=== PATIENT | male | born 1935 | race Caucasian/White ===

== ENCOUNTER 2019-05-11 13:50 | Observation (INO) | payer MEDICARE, OTHER, SELFPAY ==
[2019-05-11] VITALS (7 sets, daily range): BP systolic 120–161; BP diastolic 59–88; PULSE 67–81; RESP 15–20; TEMP 36.3–36.4; O2SAT 97–99; BMI 23.6
--- NOTE | 2019-05-11 14:04 | ED.NEUROSD ---
HPI - Neuro Symptoms/Deficit General Chief Complaint: Neuro Symptoms/Deficit Stated Complaint: slurred speach/gait Time Seen by Provider: 05/11/19 13:55 Source: patient and family Mode of arrival: ambulatory Limitations: no limitations History of Present Illness HPI Narrative: Patient is an 83-year-old male presenting with right-sided facial droop and difficulty speaking according to daughter. She states that she noticed symptoms at around 9:30 a.m. in the morning all. She still feels like his speech is a little bit slurred. She states that she had a continue sleepy asked him to repeat what he was saying and she was not able to understand him, it has improved. No history of stroke or cardiovascular disease. He has no complaints but he does have some right facial weakness. He denies any weakness or numbness in his extremities. No chest pain or heart palpitations. Time: 09:30 Timing confirmed by: family member Related Data Home Medications Medication Instructions Recorded Confirmed Statin 1 tab PO DAILY 05/11/19 05/11/19 Thyroid 1 tab PO DAILY 05/11/19 05/11/19 Wellbutrin 1 tab PO BID 05/11/19 05/11/19 cranberry 1 cap PO DAILY 05/11/19 05/11/19 ibuprofen 1 dose PO PRN PRN 05/11/19 05/11/19 Allergies Allergy/AdvReac Type Severity Reaction Status Date / Time No Known Drug Allergies Allergy Verified 05/11/19 17:38 Review of Systems Review of Systems GENERAL: Denies chills, fatigue, malaise, fever, sweats, travel HEENT: Denies sinus pain, ear pain, sore throat, difficulty swallowing, neck pain RESPIRATORY: Denies dyspnea, cough, wheezing, hemoptysis, sputum. CARDIOVASCULAR: Denies chest pain, palpitations, orthopnea, edema GASTROINTESTINAL: Denies nausea, vomiting, abdominal pain, diarrhea, constipation, melena. : Denies dysuria, frequency, incontinence, hematuria, urinary retention, flank pain. MUSCULOSKELETAL: Denies weakness, joint pain, or bony pain SKIN: No rash, no erythema, no pruritus NEUROLOGIC: See HPI home PSYCHIATRIC: No concerning psychosocial issues. 12 point review of systems is negative except for those stated above and HPI [facility] Medical History (Updated 05/11/19 @ 17:57 by Akash Godoy DO) Patient denies significant medical history (Acute) HTN (hypertension) (Chronic) Hypothyroidism (Chronic) Surgical History (Updated 05/11/19 @ 17:57 by Akash Godoy DO) H/O shoulder surgery (Resolved) Social History household members: children Smoking Status: Former smoker alcohol intake: never Social History household members: children Smoking Status: Former smoker alcohol intake: never Exam Initial Vital Signs Initial Vital Signs: Vital Signs Temperature 97.5 F L 05/11/19 13:58 Pulse Rate 81 05/11/19 13:58 Respiratory Rate 16 05/11/19 13:58 Blood Pressure 161/88 H 05/11/19 13:58 Pulse Oximetry 99 05/11/19 13:58 GENERAL: The male and in no acute distress. HEENT: Head atraumatic,EOMI, pupils reactive, slight right-sided facial droop upon mild CARDIOVASCULAR: Regular rate and rhythm without murmurs, rubs or gallops. RESPIRATORY: Breath sounds equal bilaterally, no wheezes rales or rhonchi. ABDOMEN: Soft, nontender. Normoactive bowel sounds all 4 quadrants. No guarding or rebound. EXTREMITIES: Normal range of motion, no clubbing or edema. Neurovascularly intact NEUROLOGICAL: Alert and oriented x4.Normal gait and speech. Cranial nerves II through XII grossly intact. Test Desk Trouble Locator strength equal bilaterally good [id number], slight right facial droop upon smiling only. No aphasia or dysarthria SKIN: Warm, dry, no laceration, no petechiae, no rashes or lesions. Scores ABCD2 Age >= 60 years: yes Initial BP. Either SBP >= 140 or DBP >= 90.: yes Clinical features of the TIA: speech disturbance without weakness Duration of symptoms: >= 60 minutes History of diabetes: no ABCD2 Score: 5 NIH Stroke Scale Level of Conciousness: Alert, keenly responsive Ask month/age: Answers both questions correctly. Open/close eyes, close hand: Performs both tasks correctly Best gaze horizontal: Normal Visual mora: No visual loss Facial palsy: Minor paralysis, flattened nasolabial fold, asymmetry on smiling Left arm drift: No drift for full 10 sec Right arm drift: No drift for full 10 sec Left leg drift: No drift for full 10 sec Right leg drift: No drift for full 10 sec Limb ataxia: Absent Sensory on face/arms/legs: Normal, no sensory loss Best language: No aphasia, normal Dysarthria: Normal Extinction or inattention: No abnormality Total NIH Stroke scale score: 1 Course Orders Ordered: ED Orders 05/11/19 13:55 Complete Blood Count AUTO DIFF Stat Comprehensive Metabolic Panel Stat Partial Thromboplastin Time Stat Prothrombin Time INR Stat Troponin I Stat 05/11/19 14:03 EKG-12 Lead Stat 05/11/19 14:04 CT head/brain wo con Stat Urine Drug Screen, Rapid Stat 05/11/19 17:45 Consult to Physical Therapy Evaluate & Treat 05/11/19 17:47 Consult to Discharge Planning Routine Consult to Occupational Therapy Evaluate & Treat 05/12/19 05:00 Basic Metabolic Panel DAILY Iron Routine Lipid Panel Routine Magnesium DAILY TSH w/ Reflex to FT4 Routine Total Iron Binding Capacity Routine 05/13/19 05:00 Basic Metabolic Panel DAILY Magnesium DAILY 05/14/19 05:00 Basic Metabolic Panel DAILY Magnesium DAILY Aspirin (Aspirin Ec) 81 mg PO DAILY MELONIE Sodium Chloride (Normal Saline 0.9%) 1,000 mls @ 150 mls/hr IV CONT MELONIE Last Admin: 05/11/19 16:03 Dose: 150 mls/hr Simvastatin (Zocor) 40 mg PO BEDTIME MELONIE Discontinued Medications Aspirin (Aspirin Chew) 324 mg PO NOW ONE Stop: 05/11/19 15:50 Last Admin: 05/11/19 16:03 Dose: 324 mg Vital Signs - 8 hr 05/11/19 13:58 05/11/19 14:03 05/11/19 15:00 Temperature 97.5 F L Pulse Rate 81 74 72 Respiratory Rate 16 16 16 Blood Pressure 161/88 H Blood Pressure [Right Arm] 144/68 H 120/59 L Pulse Oximetry 99 98 98 05/11/19 15:30 05/11/19 16:33 05/11/19 17:10 Temperature 97.3 F L Pulse Rate 74 69 67 Respiratory Rate 18 15 20 Blood Pressure 136/73 127/85 Blood Pressure [Right Arm] 134/60 Pulse Oximetry 97 99 98 MDM - Neuro Symptoms/Deficit Lab Data Attestation: I reviewed the patient's lab results. Result diagrams: 05/11/19 13:55 05/11/19 13:55 Lab Results 05/11/19 05/11/19 05/11/19 Range/Units 13:55 13:55 13:55 WBC 9.5 (4.5-11.0) X10^3/uL RBC 3.96 L (4.5-5.9) X10^6/uL Hgb 12.3 L (13.5-17.5) g/dL Hct 37.2 L (41-53) % MCV 93.8 (80-100) fL MCH 31.1 (26-34) PG MCHC 33.1 (30-36) % RDW 13.6 (11.6-14.8) % Plt Count 171 (150-400) X10^3/uL Neut % (Auto) 63.1 (50-75) % Lymph % (Auto) 17.4 L (25-40) % [place] % (Auto) 9.8 (3-14) % Eos % (Auto) 8.9 H (2-4) % Baso % (Auto) 0.8 (0-2) % Neut # (Auto) 6000 (8217-6459) /uL Lymph # (Auto) 1600 (7224-3246) /uL [place] # (Auto) 900 (0-900) /uL Eos # (Auto) 800 H (0-450) /uL Baso # (Auto) 100 (0-100) /uL PT 12.1 (10.1-12.7) SECONDS INR 1.1 (0.9-1.3) APTT 31 (26.4-36.2) SECONDS Sodium 142 (137-145) mmol/L Potassium 4.6 (3.4-5.1) mmol/L Chloride 110 H (98-107) mmol/L Carbon Dioxide 22 (22-32) mmol/L BUN 51 H (9-20) mg/dL Creatinine 1.80 H (0.66-1.25) mg/dL Estimated GFR 36.2 L (>60) mL/min BUN/Creatinine Ratio 28.3 H (6-22) Glucose 91 (80-110) mg/dL Calcium 9.3 (8.4-10.2) mg/dL Total Bilirubin 0.5 (0.2-1.3) mg/dL AST 24 (17-59) IU/L ALT 19 L (21-72) IU/L Alkaline Phosphatase 87 (38-126) U/L Troponin I < 0.012 (0.01-0.034) ng/mL Total Protein 7.4 (6.3-8.2) g/dL Albumin 4.1 (3.5-5.0) g/dL Globulin 3.3 (1.7-4.1) g/dL Albumin/Globulin Ratio 1.2 (1.0-2.8) Point of Care Testing Glucose POC 89 Urine Dip Bedside Urine Glucose Negative Bedside Urine Bilirubin - Negative Bedside Urine Ketone - Negative Bedside Urine Occult Blood - Negative Bedside Urine Protein +/- 15 Bedside Urine Urobilinogen - Negative Bedside Urine Nitrite - Negative Bedside Urine Leukocytes - Negative Esterase Imaging Data CT scan - head: Radiologist's impression: PROCEDURE: CT HEAD/BRAIN WO CON INDICATIONS: RIGHT FACIAL DROOP NO TPA TECHNIQUE: Noncontrast 4.5 mm thick angled axial sections acquired from the foramen magnum to the vertex, with coronal and sagittal reformats. For radiation dose reduction, the following was used: automated exposure control, adjustment of mA and/or kV according to patient size. COMPARISON: None. FINDINGS: Image quality: Excellent. CSF spaces: Basal cisterns are patent. No extra-axial fluid collections. The ventricles are symmetric in size and shape. Brain: No intracranial bleeds or masses. There is cerebral volume loss for age, with resultant ventricular and sulcal prominence. There are periventricular and deep white matter chronic small vessel ischemic changes. There is intracranial internal carotid artery atherosclerosis. Skull and face: Calvarium and visualized facial bones appear intact, without suspicious lesions. Sinuses: Visualized sinuses and mastoids are clear. IMPRESSION: Normal for age, source of current symptoms is not seen. Dictated by: Forrest Henson M.D. on 05/11/2019 at 14:24 ECG Data Attestation: I personally reviewed and interpreted this ECG as follows: Prior ECG tracings: not available for review Interpretation: Normal sinus rhythm rate 73 year interval 200 QRS [address] changes no T-wave inversions no prior to compare [facility] Narrative Medical decision making narrative: Daughter states that his speech is overall improved he still has some mild right-sided facial drooping upon smiling. He is ambulatory to the restroom without difficulty. However with significant difficulty speaking and slurring of speech there is concern for TIA. Patient has a high ABCD2 score. He is currently between PCPs and no follow-up. Dr. Godoy, hospitalist has been updated patient's symptoms test results agrees with observation. Discharge Plan Departure Patient Disposition: Admitted as Observation Clinical Impression: Transient cerebral ischemia Qualifiers: Transient cerebral ischemia type: other Qualified Code(s): G45.8 - Other transient cerebral ischemic attacks and related syndromes Discharge Date/Time: 05/11/19 17:32 Interventions: ED Discharge Assessment Last Done: 05/11/19 16:33 Admit Date/Time: 05/11/19 15:50 Admit Provider: Akash Godoy
[2019-05-11 14:11] LABS: Add Manual Diff / Slide Review NO; Basophils Absolute Auto 100 /uL (0-100); Basophils Percent Auto 0.8 % (0-2); Eosinophils Absolute Auto 800 /uL (0-450); Eosinophils Percent Auto 8.9 % (2-4); Hematocrit 37.2 % (41-53); Hemoglobin 12.3 g/dL (13.5-17.5); Lymphocytes Absolute Auto 1600 /uL (1100-4500); Lymphocytes Percent Auto 17.4 % (25-40); Mean Corpuscular HGB Conc 33.1 % (30-36); Mean Corpuscular Hemoglobin 31.1 PG (26-34); Mean Corpuscular Volume 93.8 fL (80-100); Monocytes Absolute Auto 900 /uL (0-900); Monocytes Percent Auto 9.8 % (3-14); Neutrophils Absolute Auto 6000 /uL (1500-7000); Neutrophils Percent Auto 63.1 % (50-75); Platelet Count 171 X10^3/uL (150-400); Red Blood Cell Count 3.96 X10^6/uL (4.5-5.9); Red Cell Distribution Width 13.6 % (11.6-14.8); White Blood Cell Count 9.5 X10^3/uL (4.5-11.0)
[2019-05-11 14:13] LABS: INR 1.1 (0.9-1.3); Prothrombin Time 12.1 SECONDS (10.1-12.7)
[2019-05-11 14:15] LABS: PTT Partial Thromboplastin Tim 31 SECONDS (26.4-36.2)
[2019-05-11 14:17] LABS: Alanine Aminotransferase 19 IU/L (21-72); Albumin 4.1 g/dL (3.5-5.0); Albumin Globulin Ratio 1.2 (1.0-2.8); Alkaline Phosphatase 87 U/L (38-126); Aspartate Aminotransferase 24 IU/L (17-59); BUN Creatinine Ratio 28.3 (6-22); Bilirubin Total 0.5 mg/dL (0.2-1.3); Blood Urea Nitrogen 51 mg/dL (9-20); Calcium 9.3 mg/dL (8.4-10.2); Carbon Dioxide 22 mmol/L (22-32); Chloride 110 mmol/L (98-107); Estimated Glomerular Filt Rate 36.2 mL/min (>60); Globulin 3.3 g/dL (1.7-4.1); Glucose 91 mg/dL (80-110); HEMOLYSIS < 15 (0-50); Potassium 4.6 mmol/L (3.4-5.1); Sodium 142 mmol/L (137-145); Total Protein 7.4 g/dL (6.3-8.2)
[2019-05-11 14:29] LABS: Troponin I < 0.012 ng/mL (0.01-0.034)
--- NOTE | 2019-05-11 14:45 | ED_ITS ---
HPI - Neuro Symptoms/Deficit General Chief Complaint: Neuro Symptoms/Deficit Stated Complaint: slurred speach/gait Time Seen by Provider: 05/11/19 13:55 Source: patient and family Mode of arrival: ambulatory Limitations: no limitations History of Present Illness HPI Narrative: Patient is an 83-year-old male presenting with right-sided facial droop and difficulty speaking according to daughter. She states that she noticed symptoms at around 9:30 a.m. in the morning all. She still feels like his speech is a little bit slurred. She states that she had a continue sleepy asked him to repeat what he was saying and she was not able to understand him, it has improved. No history of stroke or cardiovascular disease. He has no complaints but he does have some right facial weakness. He denies any weakness or numbness in his extremities. No chest pain or heart palpitations. Time: 09:30 Timing confirmed by: family member Related Data Home Medications Medication Instructions Recorded Confirmed Statin 1 tab PO DAILY 05/11/19 05/11/19 Thyroid 1 tab PO DAILY 05/11/19 05/11/19 Wellbutrin 1 tab PO BID 05/11/19 05/11/19 cranberry 1 cap PO DAILY 05/11/19 05/11/19 ibuprofen 1 dose PO PRN PRN 05/11/19 05/11/19 Allergies Allergy/AdvReac Type Severity Reaction Status Date / Time No Known Drug Allergies Allergy Verified 05/11/19 17:38 Review of Systems Review of Systems GENERAL: Denies chills, fatigue, malaise, fever, sweats, travel HEENT: Denies sinus pain, ear pain, sore throat, difficulty swallowing, neck pain RESPIRATORY: Denies dyspnea, cough, wheezing, hemoptysis, sputum. CARDIOVASCULAR: Denies chest pain, palpitations, orthopnea, edema GASTROINTESTINAL: Denies nausea, vomiting, abdominal pain, diarrhea, constipation, melena. : Denies dysuria, frequency, incontinence, hematuria, urinary retention, flank pain. MUSCULOSKELETAL: Denies weakness, joint pain, or bony pain SKIN: No rash, no erythema, no pruritus NEUROLOGIC: See HPI home PSYCHIATRIC: No concerning psychosocial issues. 12 point review of systems is negative except for those stated above and HPI [facility] Medical History (Updated 05/11/19 @ 17:57 by Akash Godoy DO) Patient denies significant medical history (Acute) HTN (hypertension) (Chronic) Hypothyroidism (Chronic) Surgical History (Updated 05/11/19 @ 17:57 by Akash Godoy DO) H/O shoulder surgery (Resolved) Social History household members: children Smoking Status: Former smoker alcohol intake: never Social History household members: children Smoking Status: Former smoker alcohol intake: never Exam Initial Vital Signs Initial Vital Signs: Vital Signs Temperature 97.5 F L 05/11/19 13:58 Pulse Rate 81 05/11/19 13:58 Respiratory Rate 16 05/11/19 13:58 Blood Pressure 161/88 H 05/11/19 13:58 Pulse Oximetry 99 05/11/19 13:58 GENERAL: The male and in no acute distress. HEENT: Head atraumatic,EOMI, pupils reactive, slight right-sided facial droop upon mild CARDIOVASCULAR: Regular rate and rhythm without murmurs, rubs or gallops. RESPIRATORY: Breath sounds equal bilaterally, no wheezes rales or rhonchi. ABDOMEN: Soft, nontender. Normoactive bowel sounds all 4 quadrants. No guar ding or rebound. EXTREMITIES: Normal range of motion, no clubbing or edema. Neurovascularly intact NEUROLOGICAL: Alert and oriented x4.Normal gait and speech. Cranial nerves II through XII grossly intact. Junior Brand Manager strength equal bilaterally good [id number], slight right facial droop upon smiling only. No aphasia or dysarthria SKIN: Warm, dry, no laceration, no petechiae, no rashes or lesions. Scores ABCD2 Age >= 60 years: yes Initial BP. Either SBP >= 140 or DBP >= 90.: yes Clinical features of the TIA: speech disturbance without weakness Duration of symptoms: >= 60 minutes History of diabetes: no ABCD2 Score: 5 NIH Stroke Scale Level of Conciousness: Alert, keenly responsive Ask month/age: Answers both questions correctly. Open/close eyes, close hand: Performs both tasks correctly Best gaze horizontal: Normal Visual mora: No visual loss Facial palsy: Minor paralysis, flattened nasolabial fold, asymmetry on smiling Left arm drift: No drift for full 10 sec Right arm drift: No drift for full 10 sec Left leg drift: No drift for full 10 sec Right leg drift: No drift for full 10 sec Limb ataxia: Absent Sensory on face/arms/legs: Normal, no sensory loss Best language: No aphasia, normal Dysarthria: Normal Extinction or inattention: No abnormality Total NIH Stroke scale score: 1 Course Orders Ordered: ED Orders 05/11/19 13:55 Complete Blood Count AUTO DIFF Stat Comprehensive Metabolic Panel Stat Partial Thromboplastin Time Stat Prothrombin Time INR Stat Troponin I Stat 05/11/19 14:03 EKG-12 Lead Stat 05/11/19 14:04 CT head/brain wo con Stat Urine Drug Screen, Rapid Stat 05/11/19 17:45 Consult to Physical Therapy Evaluate & Treat 05/11/19 17:47 Consult to Discharge Planning Routine Consult to Occupational Therapy Evaluate & Treat 05/12/19 05:00 Basic Metabolic Panel DAILY Iron Routine Lipid Panel Routine Magnesium DAILY TSH w/ Reflex to FT4 Routine Total Iron Binding Capacity Routine 05/13/19 05:00 Basic Metabolic Panel DAILY Magnesium DAILY 05/14/19 05:00 Basic Metabolic Panel DAILY Magnesium DAILY Aspirin (Aspirin Ec) 81 mg PO DAILY MELONIE Sodium Chloride (Normal Saline 0.9%) 1,000 mls @ 150 mls/hr IV CONT MELONIE Last Admin: 05/11/19 16:03 Dose: 150 mls/hr Simvastatin (Zocor) 40 mg PO BEDTIME MELONIE Discontinued Medications Aspirin (Aspirin Chew) 324 mg PO NOW ONE Stop: 05/11/19 15:50 Last Admin: 05/11/19 16:03 Dose: 324 mg Vital Signs - 8 hr 05/11/19 13:58 05/11/19 14:03 05/11/19 15:00 Temperature 97.5 F L Pulse Rate 81 74 72 Respiratory Rate 16 16 16 Blood Pressure 161/88 H Blood Pressure [Right Arm] 144/68 H 120/59 L Pulse Oximetry 99 98 98 05/11/19 15:30 05/11/19 16:33 05/11/19 17:10 Temperature 97.3 F L Pulse Rate 74 69 67 Respiratory Rate 18 15 20 Blood Pressure 136/73 127/85 Blood Pressure [Right Arm] 134/60 Pulse Oximetry 97 99 98 MDM - Neuro Symptoms/Deficit Lab Data Attestation: I reviewed the patient's lab results. Result diagrams: 05/11/19 13:55 05/11/19 13:55 Lab Results 05/11/19 05/11/19 05/11/19 Range/Units 13:55 13:55 13:55 WBC 9.5 (4.5-11.0) X10^3/uL RBC 3.96 L (4.5-5.9) X10^6/uL Hgb 12.3 L (13.5-17.5) g/dL Hct 37.2 L (41-53) % MCV 93.8 (80-100) fL MCH 31.1 (26-34) PG MCHC 33.1 (30-36) % RDW 13.6 (11.6-14.8) % Plt Count 171 (150-400) X10^3/uL Neut % (Auto) 63.1 (50-75) % Lymph % (Auto) 17.4 L (25-40) % [place] % (Auto) 9.8 (3-14) % Eos % (Auto) 8.9 H (2-4) % Baso % (Auto) 0.8 (0-2) % Neut # (Auto) 6000 (1240-5151) /uL Lymph # (Auto) 1600 (8517-1006) /uL [place] # (Auto) 900 (0-900) /uL Eos # (Auto) 800 H (0-450) /uL Baso # (Auto) 100 (0-100) /uL PT 12.1 (10.1-12.7) SECONDS INR 1.1 (0.9-1.3) APTT 31 (26.4-36.2) SECONDS Sodium 142 (137-145) mmol/L Potassium 4.6 (3.4-5.1) mmol/L Chloride 110 H (98-107) mmol/L Carbon Dioxide 22 (22-32) mmol/L BUN 51 H (9-20) mg/dL Creatinine 1.80 H (0.66-1.25) mg/dL Estimated GFR 36.2 L (>60) mL/min BUN/Creatinine Ratio 28.3 H (6-22) Glucose 91 (80-110) mg/dL Calcium 9.3 (8.4-10.2) mg/dL Total Bilirubin 0.5 (0.2-1.3) mg/dL AST 24 (17-59) IU/L ALT 19 L (21-72) IU/L Alkaline Phosphatase 87 (38-126) U/L Troponin I < 0.012 (0.01-0.034) ng/mL Total Protein 7.4 (6.3-8.2) g/dL Albumin 4.1 (3.5-5.0) g/dL Globulin 3.3 (1.7-4.1) g/dL Albumin/Globulin Ratio 1.2 (1.0-2.8) Point of Care Testing Glucose POC 89 Urine Dip Bedside Urine Glucose Negative Bedside Urine Bilirubin - Negative Bedside Urine Ketone - Negative Bedside Urine Occult Blood - Negative Bedside Urine Protein +/- 15 Bedside Urine Urobilinogen - Negative Bedside Urine Nitrite - Negative Bedside Urine Leukocytes - Negative Esterase Imaging Data CT scan - head: Radiologist's impression: PROCEDURE: CT HEAD/BRAIN WO CON INDICATIONS: RIGHT FACIAL DROOP NO TPA TECHNIQUE: Noncontrast 4.5 mm thick angled axial sections acquired from the foramen magnum to the vertex, with coronal and sagittal reformats. For radiation dose reduction, the following was used: automated exposure control, adjustment of mA and/or kV according to patient size. COMPARISON: None. FINDINGS: Image quality: Excellent. CSF spaces: Basal cisterns are patent. No extra-axial fluid collections. The ventricles are symmetric in size and shape. Brain: No intracranial bleeds or masses. There is cerebral volume loss for age, with resultant ventricular and sulcal prominence. There are periventricular and deep white matter chronic small vessel ischemic changes. There is intracranial internal carotid artery atherosclerosis. Skull and face: Calvarium and visualized facial bones appear intact, without suspicious lesions. Sinuses: Visualized sinuses and mastoids are clear. IMPRESSION: Normal for age, source of current symptoms is not seen. Dictated by: Forrest Henson M.D. on 05/11/2019 at 14:24 ECG Data Attestation: I personally reviewed and interpreted this ECG as follows: Prior ECG tracings: not available for review Interpretation: Normal sinus rhythm rate 73 year interval 200 QRS [address] changes no T-wave inversions no prior to compare [facility] Narrative Medical decision making narrative: Daughter states that his speech is overall i mproved he still has some mild right-sided facial drooping upon smiling. He is ambulatory to the restroom without difficulty. However with significant difficulty speaking and slurring of speech there is concern for TIA. Patient has a high ABCD2 score. He is currently between PCPs and no follow-up. Dr. Godoy, hospitalist has been updated patient's symptoms test results agrees with observation. Discharge Plan Departure Patient Disposition: Admitted as Observation Clinical Impression: Transient cerebral ischemia Qualifiers: Transient cerebral ischemia type: other Qualified Code(s): G45.8 - Other transient cerebral ischemic attacks and related syndromes Discharge Date/Time: 05/11/19 17:32 Interventions: ED Discharge Assessment Last Done: 05/11/19 16:33 Admit Date/Time: 05/11/19 15:50 Admit Provider: Akash Godoy
[2019-05-11] MEDS: SODIUM CHLORIDE 0.9% 1,000 ML 150 ML IV (16:03)
[2019-05-11] MEDS: ASPIRIN 81 MG TAB 324 MG PO (16:03)
--- NOTE | 2019-05-11 17:49 | PM.HP.1 ---
History of Present Illness Date Patient Seen: 05/11/19 Time Patient Seen: 17:30 Chief complaint: slurred speach/gait Narrative: This is an 83-year-old male a past medical history of hypothyroidism and hyperlipidemia who recently moved from [place] 2 weeks ago who presented with slurred speech as noticed by family members. His daughter noticed this around 930 this morning, specifically noting inability to comprehend the patient and a facial droop. She also states he was having some difficulty walking but had no discrete weakness that she could tell. She reports the symptoms have now resolved and the patient is speaking well and has no residual facial droop at this time. The patient himself could not recall what had occurred and deferred history to the daughter. However he did deny prior fever, chills, arm or leg weakness, numbness, chest pain, shortness of breath, lower extremity edema. He further denied headaches or vision changes currently. Patient states around 2 years ago he had periods imbalance which were evaluated and no cause was found. Other than this he states he is in good health. He last saw his primary physician a few years ago. Patient History Medical History (Updated 05/11/19 @ 17:57 by Akash Godoy DO) Patient denies significant medical history (Acute) HTN (hypertension) (Chronic) Hypothyroidism (Chronic) Surgical History (Updated 05/11/19 @ 17:57 by Akash Godoy DO) H/O shoulder surgery (Resolved) Social History household members: children Smoking Status: Former smoker alcohol intake: never Family & Social History Social History: household members children Prior Living Arrangements House Safety & Behavioral: Feels Safe in Current Yes Environment Been Physically Hurt or No Threatened By a Person Suicidal Ideation Description None Suicide Plan Description No Plan Tobacco & Substance use: Smoking Status Former smoker, quit in 1968 but has >30 pack year history alcohol intake never alcohol intake frequency 0-2 drinks per day Substance Use Type does not use Meds Home Medications Medication Instructions Recorded Confirmed Type Statin 1 tab PO DAILY 05/11/19 05/11/19 History Thyroid 1 tab PO DAILY 05/11/19 05/11/19 History Wellbutrin 1 tab PO BID 05/11/19 05/11/19 History cranberry 1 cap PO DAILY 05/11/19 05/11/19 History ibuprofen 1 dose PO PRN PRN 05/11/19 05/11/19 History Allergies Allergy/AdvReac Type Severity Reaction Status Date / Time No Known Drug Allergies Allergy Verified 05/11/19 17:38 Review of Systems Review of Systems All other systems reviewed with the patient and are negative unless otherwise stated. Exam Vital Signs (past 8 hours): - 05/11/19 13:58 05/11/19 14:03 05/11/19 15:00 Temperature 97.5 F L Pulse Rate 81 74 72 Respiratory Rate 16 16 16 Blood Pressure 161/88 H Blood Pressure [Right Arm] 144/68 H 120/59 L Pulse Oximetry 99 98 98 05/11/19 15:30 05/11/19 16:33 05/11/19 17:10 Temperature 97.3 F L Pulse Rate 74 69 67 Respiratory Rate 18 15 20 Blood Pressure 136/73 127/85 Blood Pressure [Right Arm] 134/60 Pulse Oximetry 97 99 98 Oxygen Delivery Method Room Air Narrative Exam Narrative: GENERAL APPEARANCE: Well developed, well nourished, in no acute distress. SKIN: Inspection of the skin reveals no rashes, ulcerations or petechiae. Minor skin bruising in upper and lower extremities bilaterally. HEENT: The sclerae were anicteric and conjunctivae were pink and moist. Extraocular movements were intact and pupils were equal, round, and reactive to light with normal accommodation. External inspection of the ears and nose showed no scars, lesions, or masses. Lips, teeth, and gums showed normal mucosa. The oral mucosa, hard and soft palate, tongue and posterior pharynx were normal. NECK: Supple and symmetric. There was no thyroid enlargement, and no tenderness, or masses were felt. CHEST: Normal AP diameter and normal contour without any kyphoscoliosis. LUNGS: Auscultation of the lungs revealed no wheezes, rhonchi, or rales. CARDIOVASCULAR: There was a regular rate and rhythm without any murmurs, gallops, rubs. The carotid pulses were normal and 2+ bilaterally without bruits. Peripheral pulses were 2+ and symmetric. ABDOMEN: Soft and nontender with normal bowel sounds. No ascites was noted. MUSCULOSKELETAL: Gait was normal. There was no tenderness or effusions noted. Muscle strength and tone were normal. EXTREMITIES: No cyanosis, clubbing or edema. NEUROLOGIC: Alert and oriented x 3. Normal affect. Gait was normal. Normal deep tendon reflexes with no pathological reflexes. Sensation to touch was normal. Mild R facial droop only present with active smile. Strenght +5/5 and equal bilaterally. Objective Labs Result Diagrams: 05/11/19 13:55 05/11/19 13:55 Labs: Laboratory Results - last 24 hr 05/11/19 05/11/19 05/11/19 13:55 13:55 13:55 WBC 9.5 RBC 3.96 L Hgb 12.3 L Hct 37.2 L MCV 93.8 MCH 31.1 MCHC 33.1 RDW 13.6 Plt Count 171 Neut % (Auto) 63.1 Lymph % (Auto) 17.4 L [place] % (Auto) 9.8 Eos % (Auto) 8.9 H Baso % (Auto) 0.8 Neut # (Auto) 6000 Lymph # (Auto) 1600 [place] # (Auto) 900 Eos # (Auto) 800 H Baso # (Auto) 100 PT 12.1 INR 1.1 APTT 31 Sodium 142 Potassium 4.6 Chloride 110 H Carbon Dioxide 22 BUN 51 H Creatinine 1.80 H Estimated GFR 36.2 L BUN/Creatinine Ratio 28.3 H Glucose 91 Calcium 9.3 Total Bilirubin 0.5 AST 24 ALT 19 L Alkaline Phosphatase 87 Troponin I < 0.012 Total Protein 7.4 Albumin 4.1 Globulin 3.3 Albumin/Globulin Ratio 1.2 Assessment & Plan Assessment & Plan narrative: This is an 83-year-old male a past medical history of hypothyroidism and hyperlipidemia who recently moved from [place] 2 weeks ago who presented with slurred speech as noticed by family members, with symptoms now most likely resolved admitted under observation status for possible TIA vs ischemic stroke. 1. R facial droop - acute onset at 0930 this morning, outside of TPA window and with stroke scale of 1 thrombolytics were not indicated. He has a history of hypertension and tobacco use in the remote past which are his risk factors. He clinically is improving with market improvement in facial droop per family, however this is not fully resolved at this time. This is on likely embolic in nature as he denies recent palpitations or other cardiac symptomatology. Unlikely hypothyroidism contributing but unknown dosing. He was given asa in the ED. CT head was negative for hemorrhage. - Check TSH, A1c, and lipid panel for risk stratification - obtain TTE for evaluation of possible embolic origin. - Will work to obtain his medication list for accurate dosing of levothyroxine and simvastatin, although will start simvastatin 40 mg tonight and asa 81 mg daily - Inpatient or outpatient carotid evaluation. - PT/OT evaluation - continue telemetry monitoring for possible arrythmia. 2. Elevated Creatinine - unclear baseline, suspect some aspect of CKD however patient with elevated BUN and anemia as noted below. 3. Normocytic anemia, unclear chronicity - likely chronic, normal MCV. - obtain iron / tibc as suspect anemia of chronic inflammation - will need outpatient workup with new PMD, for which patient wishes to establish care [facility]. 4. HLD, chronic - continue simvastatin as above 5. Hypothyroidism, chronic - unclear status. Will obtain TSH and obtain medication records for accurate dosing of levothyroxine. Time Spent With Patient Time with patient: Greater than 35 minutes Quality VTE Deep Vein Thrombosis/Pulmonary Embolism Present on Admission: No
[2019-05-11] MEDS: SIMVASTATIN 40 MG TABLET PO (20:17)
--- NOTE | 2019-05-11 21:49 | PC.NURSE ---
Evening Shift Note- Patient arrived to room via stretcher from ER ar 1550. patient walked with steady gait from stretcher to bed. Admission questions completed, home medications reviewed, and physical assessment done. Patient alert and oriented and able to make needs known to staff. Patient pleasent, calm, and cooperative with care. NIH stroke scale done with score of 1 at this time. 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 No complaints of pain or discomfort. No complaints of N/V. Oriented patient to bed and bed controls, room, bathroom, lights, phone, menu, and call rizvi/tv remote. safety measures in place. call rizvi and phone within reach. will continue to monitor.
[2019-05-12 00:10] VITALS: BP 141/72; PULSE 69; RESP 16; TEMP 36.6; O2SAT 97
--- NOTE | 2019-05-12 00:57 | PC.NURSE ---
Patient is alert and oriented. Breath sounds CTA with RA sat of 97%. HRR. Telemetry reading reported as SR w/1st degree AVB. Denies nausea. BT present; abdomen is soft. Denies dysuria, frequency or urgency. Able to turn self in bed and receives SBA when out of bed for safety; denies weakness or unsteadiness. NIH score 1 for slight right facial droop. Denies pain. CBG 76 so provided with snack. Fall risk score is moderate; bed alarm is activated.
[2019-05-12 06:13] VITALS: BP 144/82; PULSE 70; RESP 14; TEMP 36.8; O2SAT 94
[2019-05-12 06:14] LABS: Iron 76 ug/dL (49-181)
[2019-05-12 06:15] LABS: Blood Urea Nitrogen 39 mg/dL (9-20); Calcium 8.9 mg/dL (8.4-10.2); Carbon Dioxide 22 mmol/L (22-32); Chloride 112 mmol/L (98-107); Cholesterol 161 mg/dL (140-199); Estimated Glomerular Filt Rate 44.7 mL/min (>60); Glucose 99 mg/dL (80-110); HDL Cholesterol 31 mg/dL (40-60); HEMOLYSIS < 15 (0-50); LDL Cholesterol Calculated 115 mg/dL (<100); Potassium 4.1 mmol/L (3.4-5.1); Sodium 139 mmol/L (137-145); Triglycerides 76 mg/dL (35-150)
[2019-05-12 06:32] LABS: Percent Iron Saturation 33 % (20-50); Total Iron Binding Capacity 233 ug/dL (261-462)
[2019-05-12 06:45] LABS: TSH w/ Reflex to FT4 4.19 uIU/mL (0.47-4.68)
--- NOTE | 2019-05-12 07:00 | DI.ECHO.S_ITS ---
[facility]---------+ [facility] +---------+ : : [address] : [place] : : : : [id number] : : : : Phone: [phone]+ Echocardiogram Report + + :Name: GUERDA SALEH Study Date: 05/12/2019 Height: 64 in : :[facility] Exam Location: IS Weight: 137 lb : : Gender: Male BSA: 1.7 m2 : :: 1935 Age: 83 yrs BP: 144/82 mmHg: :Reason For Study: TIA : : Performed By: Brannon Jones : :Referring: TUSHAR GRULLON : + + Interpretation Summary Normal sinus rhythm. Normal LV size, wall thickness, wall motion and LV systolic function. EF is 55-60%. Normal chamber sizes. Aortic sclerosis without stenosis. otherwise no significant vlavular abnormalities. No prior study available for comparison. Procedure: A two-dimensional transthoracic echocardiogram with color flow and Doppler was performed. The study quality was technically adequate. The suprasternal notch views were difficult to obtain and are suboptimal in quality. There is no prior echocardiogram noted for this patient. The patient was in normal sinus rhythm during the exam. Left Ventricle: The left ventricle is normal in size. There is normal left ventricular wall thickness. The ejection fraction is estimated to be 55-60%. There are no focal wall motion abnormalities. Diastolic parameters suggest probable normal left ventricular diastolic function and normal filling pressures. Right Ventricle: The right ventricle is normal in size and function. Atria: Both atria are normal in size. The interatrial septum is intact with no evidence for an atrial septal defect. Mitral Valve: The mitral valve is normal in structure and function. The mitral valve leaflets are slightly calcified. There is trace mitral regurgitation. Aortic Valve: The aortic valve is trileaflet. The aortic valve is mildly calcified. There is mildly reduced leaflet mobility. The peak aortic velocity is 1.64 m/sec. The aortic valve mean gradient is 6.7 mmHg. The calculated aortic valve area is 1.7 cm2. The aortic valve area is 1.6 centimeters squared by planimetry. There is mild aortic stenosis. No aortic regurgitation is present. Tricuspid Valve: The tricuspid valve is normal in structure and function. There is trace tricuspid regurgitation. The right ventricular systolic pressure is estimated to be at least 25 mmHg based on an estimated right atrial pressure of 3 mm Hg. Pulmonic Valve: The pulmonic valve is normal in structure and function. There is trace pulmonic regurgitation. Great Vessels: The aortic root is normal size. The dimensions of the ascending aorta are normal. The pulmonary artery is normal size. The IVC is of normal diameter and collapses greater than 50% with a sniff. This suggests a low right atrial pressure of 3 mm Hg. Pericardium/ Pleura There is no pericardial effusion. There is no pleural effusion. MMode/2D Measurements & Calculations LVIDd: 3.3 cm LVOT diam: 2.2 cm LVIDs: 2.1 cm Ao root diam: 3.4 cm FS: 36.7 % Aortic Jxn: 2.2 cm EPSS: 0.71 cm asc Aorta Diam: 3.2 cm IVSd: 1.1 cm LVPWd: 1.1 cm LV garcia. diameter/BSA (cm/m^2): 2.0 LV sys. diameter/BSA (cm/m^2): 1.3 LA dimension: 2.2 cm RA long axis: 4.8 cm LA A2 area: 16.6 cm2 RA area: 15.9 cm2 LA A4 area: 16.4 cm2 RA vol: 44.5 ml LA length (vol): 5.5 cm RA : 26.7 ml/m2 LA vol: 42.4 ml IVC diam: 1.8 cm LA vol index: 25.5 ml/m2 EDIS (plan): 1.6 cm2 Doppler Measurements & Calculations Ao V2 max: 164.0 cm/sec LVOT Max Anshu: 79.6 cm/sec Ao V2 mean: 125.8 cm/sec LV V1 max P.5 mmHg Ao max P.8 mmHg LV V1 VTI: 18.5 cm Ao mean P.7 mmHg EDIS(I,D): 1.7 cm2 Ao V2 VTI: 39.8 cm EDIS(V,D): 1.8 cm2 sev ratio: 0.46 EDIS indexed to BSA (cm^2/m^2): 1.0 MV E max anshu: 64.2 cm/sec TR max anshu: 232.9 cm/sec MV A max anshu: 95.2 cm/sec TR max P.7 mmHg MV E/A: 0.67 PA V2 max: 71.5 cm/sec Med Peak E' Anshu: 6.3 cm/sec PA V2 mean: 48.4 cm/sec E/E' med: 10.2 PA mean P.0 mmHg Lat Peak E' Anshu: 10.2 cm/sec PA pr(Accel): 51.6 mmHg E/E' lat: 6.3 PA Accel Time: 0.06 sec E/e' average: 8.2 MV dec time: 0.25 sec SV(LVOT): 68.7 ml Electronically signed by: Rosa Liang M.D. on [employer] Physician:05/12/2019 03:21 PM
[2019-05-12 08:00] VITALS: BP 155/75; PULSE 69; RESP 18; TEMP 36.6; O2SAT 97
[2019-05-12] MEDS: SODIUM CHLORIDE 0.9% FLUSH 10 ML IV (09:38)
[2019-05-12] MEDS: ASPIRIN EC 81 MG TABLET PO (09:38)
--- NOTE | 2019-05-12 10:34 | PT.IIE ---
Surgical History (Last Updated 05/11/19 @ 17:57 by Akash Godoy DO) H/O shoulder surgery (Resolved) Medical History (Last Updated 05/11/19 @ 17:57 by Akash Godoy DO) Patient denies significant medical history (Acute) HTN (hypertension) (Chronic) Hypothyroidism (Chronic) Physical Therapy Inpatient Evaluation/Re-Eval M1 PT/OT-IP Prior Functional Status Start: 05/12/19 08:45 Freq: NEEDED Status: Active Protocol: Document 05/12/19 09:59 NFW (Rec: 05/12/19 10:34 NFW [email or web address]) Medical Review Prior Functional Status Medical History Reviewed Yes Communication Pleasant and answered all questions appropritely. Mobility and Gait Prior to admission ambulated without any assistive devices. Has a SPC which he uses on occasion. Activities of Daily Living and IADL's Prior to admission independent with all ADL's and IADL's. Prior Functional Level (Other details) Drives as needed. Recently moved from [place], [place] to live by daughter on [facility]. 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 Social History Household Members children Living Arrangements House Number of Floors (Floors) One Floor Home Environment Standard Height Toilet Tub/Shower Home Equipment Straight Cane Employment Status Retired Additional Social History Comment Patient September,. Has five children. Daughter lives on [facility] and moved patient here two weeks ago. He currently is living with his daughter but is having his 40' trailer transported to [facility] later this month. He is going to have a deck build for his trailer that will have 3-4 steps with handrails on both sides. He will live in this trailer fulltime. He has been independent with all cooking, shopping activities. Hobby of woodworking. M1 PT/OT-IP Prior Functional Status Start: 05/12/19 09:58 Freq: NEEDED Status: Active Protocol: Document 05/12/19 09:59 NFW (Rec: 05/12/19 10:34 NFW [email or web address]) M2 PT-IP Current Condition Start: 05/12/19 09:58 Freq: NEEDED Status: Active Protocol: Document 05/12/19 09:59 NFW (Rec: 05/12/19 10:34 NFW [email or web address]) Physical Therapy Current Condition Current Condition Evaluation Date 05/12/19 Treatment Diagnosis Possible TIA, secondary decrease balance and strength Onset Date 05/11/19 M3 PT-IP Subjective Start: 05/12/19 09:58 Freq: NEEDED Status: Active Protocol: Document 05/12/19 09:59 NFW (Rec: 05/12/19 10:34 NFW [email or web address]) Subjective Physical Therapy Visit Type Type Initial Evaluation Visit Start Time 09:25 Visit Stop Time 10:00 Total Visit Minutes 35 Number of OFFICE ENGINEER Visits 0 Physical Therapy Visit Comments Patient Comments No complaints of pain. States that he had a previous sore right hip and received OP PT while in [place]. Realizes that he needs to resume some sort of exercise program. Patient Goals Return to daughter's home on [facility]. Therapy Pain Assessment Pain When Pain Assessed At Rest Pain Present Pain Present Denied Pain M4 PT-IP Mobility and Gait Start: 05/12/19 09:58 Freq: NEEDED Status: Active Protocol: Document 05/12/19 09:59 NFW (Rec: 05/12/19 10:34 NFW [email or web address]) PT-Bed Mobility Assessment Rolling Level of Assist Independent Supine to Sit Supine to Sit Independent Sit to Supine Sit to Supine Independent Scooting Scooting to Edge of Bed Independent Scooting Up and Down in Bed Independent PT-Transfer Assessment Sit to and From Stand Sit to and from Stand Standby Assistance 1 Person Assistance Equipment Transfer Assistive Device Gait Belt Orthotic/Prosthetic Devices or Brace: No Transfers Transfer Destination Bed Chair Transfer Ability Level of Assist Standby Assistance 1 Person Assistance Comments Mobility Comments Patient able to go through transition activities independently, SBA, mainly for safety. Gait Assessment Gait Gait Assistance Required: Standby Assistance 1 Person Assist Distance (Feet) 300 Able to Maintain Weight Bearing Status Yes During Gait Assistive Devices Assistive Device Gait Belt Orthotic/Prosthetic Devices or Brace: No Gait Deviations General Gait Pattern Decreased Stride Length Flexed Trunk Lateral Trunk Lean Factors Limiting Gait Function Factors Limiting Gait Function Abnormal Tonal Influences Incoordination Poor Balance Comments Gait Comments Patient does not feel he has any limitations in his gait. In observing his gait he ER R> L LE, has a list to the left at stance. Requires cuing for proper upright posture. Stair Climbing Assessment Evaluation Level of Assist On Stairs Standby Assistance Devices Stair Climbing Assistive Devices None Technique/Endurance Stair Climbing Direction Ascend and Descend Stair Climbing Technique Step Over Step Step to Step Number of Steps Climbed 3 Query Text: Comments Stair Climbing Comments Patient able to ascend stairs step over step without use of handrails. On descention step to step leading with RLE and using left handrail. PT-Balance Assessment Sitting Balance and Reactions Static Sitting Balance Ability Normal Dynamic Sitting Balance Ability Normal Standing Balance and Reactions Static Standing Balance Ability Normal Dynamic Standing Balance Ability Good Balance Tests Single Limb Standing 7 seconds right, 3 seconds left, difficulty noted. Romberg neg Functional Reach Test neg Comments Other Balance Tests/Deviations/Treatment Able to walk in king [place] each : direction, side step each direction, side right over left - good, left over right difficult. M5 PT-IP Objective Assessments Start: 05/12/19 09:58 Freq: NEEDED Status: Active Protocol: Document 05/12/19 09:59 NFW (Rec: 05/12/19 10:34 NFW [email or web address]) Orientation Orientation/Cognition Level of Alertness Alert Orientation Name Age Birthday Month Date Year Day of Week Place Situation Language Function Ability No Deficits Noted Gross Range of Motion Upper Extremity ROM Assessment Right Impaired Impairments RUE injury many years ago with residual loss of motion by 60 -70% in flexion and abduction. Pt is right dominant. Lower Extremity ROM Assessment Within Functional Limits Impairments Holds RLE in ER in supine and standing. Strength Upper Extremity Strength Assessment Right Impaired Lower Extremity Strength Assessment Within Functional Limits Comments Strength Comments RUE grade 3+/5 in available ROM. LUE WFL. Coordination Assessment Gross Coordination Gross Coordination WNL Assessment Finger to Nose Test Normal Performance Muscle Tone Muscle Tone WNL Yes M6 PT-IP Treatment Start: 05/12/19 09:58 Freq: NEEDED Status: Active Protocol: Document 05/12/19 09:59 NFW (Rec: 05/12/19 10:34 NFW [email or web address]) Physical Therapy Treatment Education Education Provided Safety M7 PT-IP Assessment and Plan Start: 05/12/19 09:58 Freq: NEEDED Status: Active Protocol: Document 05/12/19 09:59 NFW (Rec: 05/12/19 10:34 NFW [email or web address]) PT Summary Assessment and Plan Potential Rehabilitation Potential Excellent Status of Condition at Evaluation Stable Summary Assessment Summary 83 y/o male seen at for possible TIA that occurred . After evaluation patient and I feel that he is functioning at his base level. Recommend that he utilize his SPC with ambulation for any distances outside of the home as he has occasional LOB. BP at rest 143/61, pulse 79, O2 98 Frequency of Treatment Frequency Of Treatment Discharge Discharge Recommendations PT Discharge Recommendations Home Other Discharge Recommendations Awaiting results of echocardiogram. Ready for discharge from PT.
[2019-05-12 10:55] LABS: Urine Amphetamines Negative (Negative); Urine Barbiturates Negative (Negative); Urine Benzodiazepines Negative (Negative); Urine Cocaine Negative (Negative); Urine MDMA Negative (Negative); Urine Methadone Negative (Negative); Urine Methamphetamines Negative (Negative); Urine Morphine/Opi cutoff 2000 Negative (Negative); Urine Oxycodone Negative (Negative); Urine Phencyclidine Negative (Negative); Urine Tetrahydrocannabinol Negative (Negative); Urine Tricyclic Antidepressant Negative (Negative)
--- NOTE | 2019-05-12 10:57 | PM.DS.1 ---
History of Present Illness Chief complaint: slurred speach/gait Narrative: This is an 83-year-old male a past medical history of hypothyroidism and hyperlipidemia who recently moved from [place] 2 weeks ago who presented with slurred speech as noticed by family members. His daughter noticed this around 930 this morning, specifically noting inability to comprehend the patient and a facial droop. She also states he was having some difficulty walking but had no discrete weakness that she could tell. She reports the symptoms have now resolved and the patient is speaking well and has no residual facial droop at this time. The patient himself could not recall what had occurred and deferred history to the daughter. However he did deny prior fever, chills, arm or leg weakness, numbness, chest pain, shortness of breath, lower extremity edema. He further denied headaches or vision changes currently. Patient states around 2 years ago he had periods imbalance which were evaluated and no cause was found. Other than this he states he is in good health. He last saw his primary physician a few years ago. All other systems reviewed with the patient and are negative unless otherwise stated. Discharge Providers Date of admission: 05/11/19 15:50 Discharge Date: 05/12/19 Primary care physician: Antonino Sandhu MD Consults: 05/11/19 17:45 Consult to Physical Therapy Evaluate & Treat Comment: Physician Instructions: Evaluate and Treat 05/11/19 17:47 Consult to Discharge Planning Routine Comment: Consult to Occupational Therapy Evaluate & Treat Comment: Physician Instructions: Evaluate and treat Discharge provider: Akash Godoy DO Summary Hospital Course: This is an 83-year-old male a past medical history of hypothyroidism and hyperlipidemia who recently moved from [place] 2 weeks ago who presented with slurred speech as noticed by family members which resolved within 24 hours, patient was admitted to medicine observation status after TIA. 1. Transient ischemic attack - acute onset of facial droop occurred 0930 the morning of admission, outside of TPA window and with stroke scale of 1 thrombolytics were not indicated. He has a history of HLD and tobacco use in the remote past which are his risk factors. He clinically is improving with market improvement in facial droop per family and fully recovered by discharged. This is not likely embolic in nature as he denies recent palpitations or other cardiac symptomatology and he had no events or arrythmias on telemetry. Unlikely hypothyroidism with normal TSH. He was given asa in the ED. CT head was negative for hemorrhage. - Continue Asa 81 mg daily - started amlodipine 2.5 mg for mildly elevated blood pressures while inpatient. - TTE showed normal EF, no thrombi or wall motion abnormalities. There was noted mild aortic stenosis. - Continue home dosing of statin and levothyroxine as the daughter was unaware of the dosing of his medications and this information could not be obtained electronically, however LDL was acceptable and TSH was unremarkable. - Recommend outpatient carotid evaluation with primary care - PT recommended discharge home 2. Acute kidney injury - unclear baseline, however Cr improved from 1.8 to 1.5 overnight indicating DEAN likely in setting of TIA. suspect some aspect of CKD but unclear baseline. - recommend outpatient lab evaluation with primary care provider. 3. Normocytic anemia, unclear chronicity - likely chronic, normal MCV. - obtain iron / tibc as suspect anemia of chronic inflammation - will need outpatient workup with new PMD, for which patient wishes to establish care on [facility]. 4. HTN - new diagnosis for patient. Elevated blood pressures between 140 and 150 systolic while inpatient. - start amlodipine 2.5 mg daily, further titration with PCP. 4. HLD, chronic - continue simvastatin as above 5. Hypothyroidism, chronic - TSH is 4.19 and controlled. - continue home dosign of levothyroxine. Exam Vital Signs (past 8 hours): - 05/12/19 06:13 05/12/19 08:00 Temperature 98.2 F 97.9 F Pulse Rate 70 69 Respiratory Rate 14 18 Blood Pressure 144/82 H 155/75 H Pulse Oximetry 94 97 Oxygen Delivery Method Room Air Oxygen Flow Rate 0 Narrative Exam Narrative: GENERAL APPEARANCE: Elderly male, Well developed, well nourished, in no acute distress. SKIN: Inspection of the skin reveals no rashes, ulcerations or petechiae. Minor skin bruising unchanged from prior. HEENT: The sclerae were anicteric and conjunctivae were pink and moist. Extraocular movements were intact and pupils were equal, round, and reactive to light with normal accommodation. External inspection of the ears and nose showed no scars, lesions, or masses. Lips, teeth, and gums showed normal mucosa. The oral mucosa, hard and soft palate, tongue and posterior pharynx were normal. NECK: Supple and symmetric. There was no thyroid enlargement, and no tenderness, or masses were felt. CHEST: Normal AP diameter and normal contour without any kyphoscoliosis. LUNGS: Auscultation of the lungs revealed no wheezes, rhonchi, or rales. CARDIOVASCULAR: There was a regular rate and rhythm without any murmurs, gallops, rubs. The carotid pulses were normal and 2+ bilaterally without bruits. Peripheral pulses were 2+ and symmetric. ABDOMEN: Soft and nontender with normal bowel sounds. No ascites was noted. MUSCULOSKELETAL: Gait was normal. There was no tenderness or effusions noted. Muscle strength and tone were normal. EXTREMITIES: No cyanosis, clubbing or edema. NEUROLOGIC: Alert and oriented x 3. Normal affect. Gait was normal. Normal deep tendon reflexes with no pathological reflexes. Sensation to touch was normal. Objective Labs Result Diagrams: 05/11/19 13:55 05/12/19 05:40 Labs: Laboratory Results - last 24 hr 05/11/19 05/11/19 05/11/19 13:55 13:55 13:55 WBC 9.5 RBC 3.96 L Hgb 12.3 L Hct 37.2 L MCV 93.8 MCH 31.1 MCHC 33.1 RDW 13.6 Plt Count 171 Neut % (Auto) 63.1 Lymph % (Auto) 17.4 L Glasscock % (Auto) 9.8 Eos % (Auto) 8.9 H Baso % (Auto) 0.8 Neut # (Auto) 6000 Lymph # (Auto) 1600 Glasscock # (Auto) 900 Eos # (Auto) 800 H Baso # (Auto) 100 PT 12.1 INR 1.1 APTT 31 Sodium 142 Potassium 4.6 Chloride 110 H Carbon Dioxide 22 BUN 51 H Creatinine 1.80 H Estimated GFR 36.2 L BUN/Creatinine Ratio 28.3 H Glucose 91 Calcium 9.3 Magnesium Iron TIBC % Saturation Total Bilirubin 0.5 AST 24 ALT 19 L Alkaline Phosphatase 87 Troponin I < 0.012 Total Protein 7.4 Albumin 4.1 Globulin 3.3 Albumin/Globulin Ratio 1.2 Triglycerides Cholesterol LDL Cholesterol, Calc HDL Cholesterol TSH Urine Opiates Screen Ur Oxycodone Screen Urine Methadone Screen Ur Barbiturates Screen U Tricyclic Antidepress Ur Phencyclidine Scrn Ur Amphetamines Screen U Methamphetamines Scrn Ur MDMA Scrn (Ecstasy) U Benzodiazepines Scrn Urine Cocaine Screen U Marijuana (THC) Screen 08/05/12/19 05/12/19 05:40 05:40 05:40 WBC RBC Hgb Hct MCV MCH MCHC RDW Plt Count Neut % (Auto) Lymph % (Auto) Glasscock % (Auto) Eos % (Auto) Baso % (Auto) Neut # (Auto) Lymph # (Auto) Glasscock # (Auto) Eos # (Auto) Baso # (Auto) PT INR APTT Sodium 139 Potassium 4.1 Chloride 112 H Carbon Dioxide 22 BUN 39 H Creatinine 1.50 H Estimated GFR 44.7 L BUN/Creatinine Ratio 26.0 H Glucose 99 Calcium 8.9 Magnesium 2.0 Iron 76 TIBC 233 L % Saturation 33 Total Bilirubin AST ALT Alkaline Phosphatase Troponin I Total Protein Albumin Globulin Albumin/Globulin Ratio Triglycerides 76 Cholesterol 161 LDL Cholesterol, Calc 115 H HDL Cholesterol 31 L TSH 4.19 Urine Opiates Screen Ur Oxycodone Screen Urine Methadone Screen Ur Barbiturates Screen U Tricyclic Antidepress Ur Phencyclidine Scrn Ur Amphetamines Screen U Methamphetamines Scrn Ur MDMA Scrn (Ecstasy) U Benzodiazepines Scrn Urine Cocaine Screen U Marijuana (THC) Screen 05/12/19 10:30 WBC RBC Hgb Hct MCV MCH MCHC RDW Plt Count Neut % (Auto) Lymph % (Auto) Glasscock % (Auto) Eos % (Auto) Baso % (Auto) Neut # (Auto) Lymph # (Auto) Glasscock # (Auto) Eos # (Auto) Baso # (Auto) PT INR APTT Sodium Potassium Chloride Carbon Dioxide BUN Creatinine Estimated GFR BUN/Creatinine Ratio Glucose Calcium Magnesium Iron TIBC % Saturation Total Bilirubin AST ALT Alkaline Phosphatase Troponin I Total Protein Albumin Globulin Albumin/Globulin Ratio Triglycerides Cholesterol LDL Cholesterol, Calc HDL Cholesterol TSH Urine Opiates Screen Negative Ur Oxycodone Screen Negative Urine Methadone Screen Negative Ur Barbiturates Screen Negative U Tricyclic Antidepress Negative Ur Phencyclidine Scrn Negative Ur Amphetamines Screen Negative U Methamphetamines Scrn Negative Ur MDMA Scrn (Ecstasy) Negative U Benzodiazepines Scrn Negative Urine Cocaine Screen Negative U Marijuana (THC) Screen Negative Discharge Plan Discharge Plan Patient Disposition: Home Discharge comment: This is an 83-year-old male a past medical history of hypothyroidism and hyperlipidemia who recently moved from [place] 2 weeks ago who presented with slurred speech as noticed by family members which resolved within 24 hours, patient was admitted to medicine observation status after TIA. 1. Transient ischemic attack - acute onset of facial droop occurred 0930 the morning of admission, outside of TPA window and with stroke scale of 1 thrombolytics were not indicated. He has a history of HLD and tobacco use in the remote past which are his risk factors. He clinically improved with marked improvement in facial droop per family and fully recovered by discharged. This is not likely embolic in nature as he denies recent palpitations or other cardiac symptomatology and he had no events or arrythmias on telemetry. Unlikely hypothyroidism with normal TSH. He was given asa in the ED. CT head was negative for hemorrhage. - Continue Asa 81 mg daily - started amlodipine 2.5 mg for mildly elevated blood pressures while inpatient. - TTE with normal EF and no wall motion abnormalities, no intramural thrombus identified. It did show mild aortic stenosis. - Continue home dosing of statin and levothyroxine as the daughter was unaware of the dosing of his medications and this information could not be obtained electronically, however LDL was acceptable and TSH was unremarkable. - Recommend outpatient carotid evaluation with primary care - PT recommended discharge home 2. Acute kidney injury - unclear baseline, however Cr improved from 1.8 to 1.5 overnight indicating DEAN likely in setting of TIA. suspect some aspect of CKD but unclear baseline. - recommend outpatient lab evaluation with primary care provider. 3. Normocytic anemia, unclear chronicity - likely chronic, normal MCV. - obtain iron / tibc as suspect anemia of chronic inflammation - will need outpatient workup with new PMD, for which patient wishes to establish care on [facility]. 4. HTN - new diagnosis for patient. Elevated blood pressures between 140 and 150 systolic while inpatient. - start amlodipine 2.5 mg daily, further titration with PCP. 4. HLD, chronic - continue simvastatin as above 5. Hypothyroidism, chronic - TSH is 4.19 and controlled. - continue home dosign of levothyroxine. Discharge Med Rec/Prescriptions Prescriptions: New aspirin 81 mg Tablet,Delayed Release (Dr/Ec) 81 mg PO DAILY 30 Days Qty: 30 RF: 0 amlodipine [Norvasc] 2.5 mg Tablet 2.5 mg PO DAILY 30 Days Qty: 30 RF: 0 Continued Statin 1 tab PO DAILY RF: 0 Thyroid 1 tab PO DAILY RF: 0 Wellbutrin 1 tab PO BID RF: 0 cranberry 1 cap PO DAILY RF: 0 Discontinued ibuprofen 200 mg Tablet 1 dose PO PRN PRN (Reason: Fever Or Pain) RF: 0 Follow up/Referrals: Antonino Sandhu MD [Primary Care Provider] - 05/17/19 (Continue with appointment with PCP as already established.) Provider Discharge Instructions Diet: Diet as Tolerated Visit Report/Discharge Packet Instructions: Echocardiogram, DI for Transient Ischemic Attack, How to Prevent Falls, Aspirin, Amlodipine Discharge Data Primary Care Provider: Antonino Sandhu Attending Provider: Akash Godoy Admit Date/Time: 05/11/19 15:50 Quality VTE Deep Vein Thrombosis/Pulmonary Embolism Present on Admission: No
[2019-05-12 11:02] VITALS: BP 104/51; PULSE 72; RESP 16; TEMP 36.6; O2SAT 99
--- NOTE | 2019-05-12 11:55 | OT.IP.EVAL ---
Current Diagnoses Slurred speech (05/11/19) Past Medical History (Last Updated 05/11/19 @ 17:57 by Akash Godoy DO) Patient denies significant medical history (Acute) HTN (hypertension) (Chronic) Hypothyroidism (Chronic) Surgical History (Last Updated 05/11/19 @ 17:57 by Akash Godoy DO) H/O shoulder surgery (Resolved) Occupational Therapy Inpatient Evaluation/Re-Eval M1 PT/OT-IP Prior Functional Status Start: 05/12/19 08:45 Freq: NEEDED Status: Active Protocol: Document 05/12/19 11:55 PJM (Rec: 05/12/19 16:22 PJM [id number]) Medical Review Prior Functional Status Medical History Reviewed Yes Diet/Fluid Consistency Regular Communication WNL, no dysarthria noted. Pt/ daughter feel pt's speech is back to baseline. Mobility and Gait Prior to admission ambulated without any assistive devices. Has a SPC which he uses on occasion. Activities of Daily Living and IADL's Prior to admission independent with all ADL's and IADL's including driving. Prior Functional Level (Other details) Recently moved from [place], [place] to live by daughter on daughter's property on [address]. 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 Pt plans to live in mobile home on her property. He is ucrrently living in daughter and son in law's home until mobile home arrives. Social History Household Members children (daughter and son in law) Living Arrangements House Number of Floors (Floors) One Floor Number of Stairs To Enter/Railing? no stairs to enter daughter's home Home Environment Standard Height Toilet Tub/Shower Home Equipment Straight Cane Employment Status Retired Additional Social History Comment Pt states he does not use [place] and [place] 1/4 mile to mailbox [address] 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 M1 PT/OT-IP Prior Functional Status Start: 05/12/19 09:58 Freq: NEEDED Status: Active Protocol: Document 05/12/19 11:55 PJM (Rec: 05/12/19 16:22 PJM [id number]) M2 OT-IP Current Condition Start: 05/12/19 08:45 Freq: Status: Active Protocol: Document 05/12/19 11:55 PJM (Rec: 05/12/19 16:22 [facility] [id number]) Occupational Therapy Current Condition Current Condition Evaluation Date 05/12/19 Treatment Diagnosis assess self care, BUE function after TIA Diagnosis Onset Date 05/11/19 M3 OT- IP Subjective and Pain Start: 05/12/19 08:45 Freq: Status: Active Protocol: Document 05/12/19 11:55 PJM (Rec: 05/12/19 16:22 PJ [id number]) OT- Subjective Occupational Therapy Visit Type Type Initial Evaluation Visit Start Time 11:35 Visit Stop Time 11:55 Total Visit Minutes 20 Notes Daughter observing this session. Occupational Therapy Visit Comments Patient Comments I feel like I am back to normal. Patient/Caregiver Goals to go back to daughter's home on [address] today OT Pain Assessment Pain Present Pain Present Denied Pain M4 OT- IP ADL's Start: 05/12/19 08:45 Freq: Status: Active Protocol: Document 05/12/19 11:55 PJM (Rec: 05/12/19 16:22 [facility] [id number]) OT QNB-Psvo-Nrlzivn General Evaluation Self-Feeding Ability Independent OT ADL-Grooming General Evaluation Grooming Ability Independent OT ADL-Oral Care General Eval Oral Care Ability Independent OT ADL-Dressing General Eval Upper Body Dressing Ability Independent Lower Body Dressing Ability Independent Areas Needing Assistance Underpants/Brief Socks OT ADL-Toileting General Evaluation Toileting Ability Independent Comments OT Toileting Comments by pt report OT ADL-Bathing Comments OT Bathing Comments did not occur, no new deficits identified that would interfere, recommend grab bars M5 OT- IP IADL's Start: 05/12/19 08:45 Freq: Status: Active Protocol: Document 05/12/19 11:55 PJM (Rec: 05/12/19 16:22 [facility] [id number]) OT-Instrumental Activities of Daily Living Deficits IADL Deficits Identified No Deficits Home Safety Awareness Awareness of Need for Assistance at Home Good Awareness Ability to Problem Solve Emergency Able to Problem Solve Situations Medication Management Medication Management No Deficits Identified Money Management Money Management No Deficits Identified Meal Preparation Meal Preparation Comments family is assisting pt with meals at present Delimber Operator Delimber Operator Comments family assisting at present Driving Driving Comments no new deficits identified that would interfere; MD to medically clear pt for driving M6 OT- IP Functional Cognition Start: 05/12/19 08:45 Freq: Status: Active Protocol: Document 05/12/19 11:55 PJM (Rec: 05/12/19 16:22 PJM [id number]) Cognitive Factors Limiting Selfcare Function Cognitive Ability Level of Alertness Alert Patient Orientation Name Age Birthday Month Date Year Day of Week Place Situation Attention Span Ability Capable of Focused Attention Capable of Sustained Attention Ability to Follow Commands Able to Follow One Step Commands Able to Follow Multi-Step Commands Memory Description No Deficits Noted Safety Awareness No Deficits Noted Problem Solving Ability No deficits Noted Cognitive Comments Cognitive Assessment Comments Pt appears to be at cognitive baseline. OT- Vision and Hearing OT- Hearing Assessment OT- Hearing Assessment WFL OT- Vision Assessment Visual Acuity Glasses All The Time Visual Attentiveness WFL Occular Pursuits WFL Visual Easley WFL Diplopia Absent Vision Assessment Comments No new vision deficits identified. M7 OT- IP Mobility and Balance Start: 05/12/19 08:45 Freq: Status: Active Protocol: Document 05/12/19 11:55 PJM (Rec: 05/12/19 16:22 PJ [id number]) OT-Transfer Assessment Sit to and From Stand Sit to and from Stand Independent OT- Gait Assessment Comments Gait Ability Comments see P.T. notes OT- Balance Assessment Sitting Balance and Reactions Static Sitting Balance Ability Good Dynamic Sitting Balance Ability Good M8 OT- IP Objective Assessments Start: 05/12/19 08:45 Freq: Status: Active Protocol: Document 05/12/19 11:55 PJM (Rec: 05/12/19 16:22 PJ [id number]) OT Gross Range of Motion Upper Extremity Range of Motion Assessment Right Impaired ROM Impairments R shoulder scaption limited to about 80 degrees by old injury/surgery. Otherwise BUE AROM WFL for age. OT Strength Upper Extremity Strength Assessment Within Functional Limits Hand Dishwasher Strength Hand Dominance Right Comments Strength Comments no focal weakness noted OT- Coordination Assessment Upper Extremity Finger to Nose Test Within Functional Limits Finger Tapping Test Within Functional Limits Comments Coordination Comments BUE WFL, R handwriting at baseline OT-Muscle Tone Assessment Muscle Tone WNL Yes OT Sensation Assessment Comments Summary Comments BUE WNL per pt Edema Edema Absent M9 OT- IP Assessment and Plan Start: 05/12/19 08:45 Freq: Status: Active Protocol: Document 05/12/19 11:55 PJM (Rec: 05/12/19 16:22 PJ [id number]) OT Summary Assessment and Plan Summary Progress Towards Goals Safe For Discharge Assessment Summary Low complexity OT assessment completed on this 83 yr old pt admitted with transient slurred speech, R side drooling, now resolved. DX is TIA. Pt appears to be at baseline level of function in all areas with no focal deficits noted. No further OT services needed. Pt plans to d/c home today with son and daughter in law when medically cleared. P.T. has already cleared pt for d/c. Frequency of Treatment Frequency Of Treatment Discharge Discharge Recommendations OT Discharge Recommendations Home Home Equipment Needs grab bars in bathroom
[2019-05-12] MEDS: AMLODIPINE 2.5 MG TABLET PO (11:56)
[2019-05-12 13:47] VITALS: BP 129/65; PULSE 76
--- NOTE | 2019-05-12 14:35 | PC.NURSE ---
Day Shift- Pt A&OX4, NIH score 0, pt had no facial droop to right side, denied any slurring. States feeling good and ready for home. Steady gait with ambulation. ECHO completed this AM around 0830, awaiting written report. Pt's daughter present from [facility] to drive pt home when discharged. New medication of Amlodipine given at 1155. Rechecked bP/Pulse after for 129/65 and pulse 76, no adverse affects noted.
--- NOTE | 2019-05-12 15:34 | CM.DANOTE ---
Discharge Planning/Care Management DCP: assessment: case received and discussed this morning in Team Rounds. PT and OT were ordered. Met earlier this afternoon with pt and his daughter Yumi. Introduced self and role. Pt is an 83 year old who has recently moved in with his daughter on [facility] [address]. PCP: Antonino Sandhu: has first appt to establish care on 05/17. Admitted to care of hospitalist team. Payer: Medicare and [employer]. Pt has worked now with therapy and per pt and care team report appears back to baseline. He and his daughter are waiting for Dr. Godoy go give them the results of the ECHO done earlier today and then if ok will take the afternoon ferry back to [place]. Pt plan to live on daughter's property in a 40 ft trailer that will have a large deck...he says he is eager to get started on this project. Home today if all ok with ECHO...will check in tomorrow if he is still here. CM Discharge Assessment Start: 05/12/19 15:31 Freq: Status: Active Protocol: Document 05/12/19 15:31 ITV (Rec: 05/12/19 15:33 ITV [id number]) Discharge Planning Assessment Advance Directives? No History Provided By Patient Family Member Medical Record Has Patient been admitted in last 30 No days? Prior Living Arrangements House Household Members children Comment recent move from [place] after being in Sep 2018 now living with his daugher on [facility] Independent with ADL's Yes Is patient alert and oriented? Yes DME Already Rented / Owned Cane Whiteboard Updated in Patient Room with Yes name and ext. # of Wagon Person Review Status In Process
--- NOTE | 2019-05-12 15:57 | PC.NURSE ---
1530 - Discharge orders obtained. Discussed with pt and pt daughter discharge timeline. Pt requesting to attempt to make the 1545 ferry. Pt daughter states that the ferry is running late r/t fog, It might not be leaving till 4:30. D/c iv, tele off. Reviewed discharge information, educational material and new meds. RX provided. Pt and his daughter deny questions. Pt discharge via wheelchair to daughter's private vehicle.
--- NOTE | 2019-06-02 14:44 | PC.NURSE ---
Late Entry NS STOP TIME [id number]
== END 2019-05-12 15:45 | disposition home or self-care (01) ==
LOC: ED 15:32 → AC 15:51
PROVIDERS: Admitting Provider Internal Medicine; Emergency Provider Emergency Medicine; PCP Family Medicine; Visit Provider Internal Medicine
DX: R29.810 Facial weakness (principal); I10 Essential (primary) hypertension; E03.9 Hypothyroidism, unspecified; D64.9 Anemia, unspecified; G45.9 Transient cerebral ischemic attack, unspecified; N17.9 Acute kidney failure, unspecified
CPT/HCPCS: 36415; 36591; 70450; 80048; 80053; 80061; 80305; 81003; 82962; 83540; 83550; 83735; 84443; 84484; 85025; 85610; 85730; 93005; 93041; 93306; 96360; 97161; 97165; 97530; 99285; G0378

== ENCOUNTER 2019-10-27 06:05 | Inpatient (IN) | payer MEDICARE, OTHER, SELFPAY ==
[2019-05-11 15:51] VITALS: BMI 23.6
[2019-10-24 09:12] VITALS: BMI 22.3
[2019-10-27] VITALS (18 sets, daily range): BP systolic 116–163; BP diastolic 62–106; PULSE 61–104; RESP 10–20; TEMP 35.8–37.3; O2SAT 92–100; BMI 21.8
--- NOTE | 2019-10-27 06:35 | DI.RAD.S_ITS ---
PROCEDURE: XR SHOULDER RT MIN 2V INDICATIONS: POST OPERATIVE RIGHT SHOULDER TECHNIQUE: 2 views of the shoulder were acquired. COMPARISON: SNO Outside Film, CT, CT SHOULDER RIGHT WITHOUT CONTRAST, 10/07/2019, 9:30. FINDINGS: Bones: Status post interval right shoulder arthroplasty. Surgical hardware appear intact and normally aligned. No acute fractures. Mild widening of the right acromioclavicular interval to likely related to distal clavicular resection. No suspicious bony lesions. Visualized ribs appear intact. Soft tissues: No suspicious soft tissue calcifications. Expected soft tissue changes from recent surgical procedure. Lumbar the decrease with scattered atelectasis. IMPRESSION: Status post right shoulder arthroplasty without acute hardware complications. Findings suggestive of concurrent distal clavicular resection. Recommend verification with surgical history. Dictated by: Juan Cook M.D. on 10/27/2019 at 17:38 Approved by: Juan Cook M.D. on 10/27/2019 at 17:42
[2019-10-27] MEDS: LACTATED RINGERS 1,000 ML 42 ML IV ×2 (07:26→09:24)
[2019-10-27] MEDS: VANCOMYCIN 1,000 MG/200 ML PIGGYBACK 200 MG IV ×2 (07:29→19:59)
[2019-10-27] MEDS: fentaNYL 100 MCG/2 ML INJ 50 MCG IV (07:33)
--- NOTE | 2019-10-27 07:35 | PM.PREOP ---
Pre-operative Note Interval Note History & Physical reviewed/Exam performed by Physician: Yes Changes to H&P: No
--- NOTE | 2019-10-27 07:50 | SUR.PREOP ---
Block start time [0733] . Monitoring initiated and maintained throughout procedure. Oxygen and medications given per anesthesiologist instructions. Patient remained stable throughout procedure, no adverse reactions noted. Block end time [0738].
[2019-10-27] MEDS: MIDAZOLAM 2 MG/2 ML VIAL IV (07:52)
[2019-10-27] MEDS: GENTAMICIN 200 MG in SODIUM CHLORIDE 0.9% 100 ML 105 ML IV (07:55)
[2019-10-27] MEDS: LIDOCAINE 1% W/EPI 20 ML INJ (08:20)
--- NOTE | 2019-10-27 08:30 | SUR.OPER ---
Beach chair with [employer]tron shoulder positioner. Lower body on padded OR bed. Head in foam padded head cradle, secured with straps. Non-operative arm secured <90 degrees abduction with gel pad. Pillow under knees. Safety belt at thigh. Cloth tape over blanket over lower legs. Gel pad under heels.
--- NOTE | 2019-10-27 10:09 | P.OP_ITS ---
Operative Date/Time/Diagnoses Date of procedure: 10/27/19 Time of procedure: 08:00 Pre-op diagnosis: Right shoulder rotator cuff arthropathy Post-op diagnosis: same Procedure & Clinicians Procedure: Right reverse total shoulder arthroplasty Same procedure as scheduled: Yes Indications: Rotator cuff arthroplasty Surgeon: Riki Vogel Lead Instructor/Flight Attendant: Staci Neff Anesthesia Type: General and Peripheral nerve block Operative Notes Findings: Significant cuff tear arthropathy with a high-riding humeral head with articulation with the acromial arch. Bony changes both to the articular surface of the humeral head as well as superior surface. End-stage arthritic changes to the glenohumeral joint as well. Complete loss of the supraspinatus, infraspinatus, and subscapularis. Acetabularzation of the acromion Closure Type: primary Specimen(s): none sent Applied: implant(s) (39 mm glenoid sphere size 8 stem with a +3 poly) Estimated Blood Loss (mL): 100 Blood products transfused: none Procedure in detail: On date of service, Patient was met in the holding area. The operative site was signed and witnessed by the OR staff. The surgeries once again discussed with the patient and any remaining questions they had were ans wered fully. Patient was taken back to the operating theater and placed on the operating table in a supine position. Great care was taken to ensure that all bony prominences were properly padded. Patient was then placed into the beach chair position. The head and neck were properly positioned and secured. A timeout was performed verifying patient's name, procedure, and the operative site. The upper extremity was then prepped and draped in the normal sterile fashion. Previously, the bony anatomy and incision were marked out as well as injected with Marcaine with epinephrine. A deltopectoral approach was performed. 10 blade was used to incise the skin and fascial tissue. A deep knife was used to continue sharp dissection until the cephalic vein was visualized. The cephalic vein was dissected free allowing us to expose the deltopectoral interval. This interval was then developed. A Peña elevator was used to free up the deltoid of any scarring both superficially as well as deeply. The vein and the deltoid were taken laterally while the pectoralis was taken medially. This gave us good visualization of the strap muscles. The clavipectoral fascia was removed and the strap muscles were then retracted medially with the pectoralis. Patient had a significant high riding humeral head with articulation with the acromial arch. Patient had complete loss of the entire rotator cuff except for teres minor. The entire head was free of any soft tissue attachment. Patient had end-stage arthritic changes to the humeral head as well as the glenoid with large osteophytes anterior inferiorly as well as posteriorly. A Ronger was then used to remove the osteophytes. An intramedullary guide was placed for the humeral cut. The head was removed. In a protective plate was placed to protect the osteotomy site. We then turned our attention to the glenoid. The degenerative anterior and inferior capsular tissue was removed. This was followed by removing the degenerative labral tissue from around the glenoid as well as the biceps insertion. This gave us good visualization of the glenoid. Guide pin was placed in the center of the glenoid. This gave us a good idea of the ventral screw length. Cannulated drill bit was placed over the guidewire and drilled. This was followed by a small Reamer then by the actual Reamer for the glenoid sphere which measured out to be a 39 mm. Copious irrigation was performed after all drilling and reaming. Once the glenoid was reamed the center hole was tapped. A 24 mm base plate was screwed into place. Locking screws were then placed superior and inferiorly is wears anteriorly and posteriorly. We had very good screw lengths for 3 out of the for. The anterior screw was in place due to the small nature of the amount of bone. Once the base placed was securely fixated to the glenoid the glenoid sphere was impacted into place in the center screw was placed for additional fixation. The area was then copiously irrigated and we turned our attention to the humerus. We Return to our attention back to the humerus. The humerus was then reamed and broached. Trial stem was placed and then reamed for the placement of the cup. Trial liners were trialed as well and the shoulder was reduced and taken through range of motions. The +3 liner provided the most optimal stability. The trial components were removed and the final components were impacted into the humerus. A +3 liner was placed in the shoulders was reduced and taken through range of motion and was felt to be quite stable. The shoulder was copiously irrigated with pulse lavage and a drain was placed. The shoulder was closed in layered fashion and patient was extubated and taken to the PACU in stable condition. Complications: none Post-operative Condition: stable Disposition: PACU Plan for aftercare: Patient will follow our postoperative protocol for a reverse total shoulder arthroplasty. Due to the fact that there was no subscapularis to repair the really is no restrictions to range of motion after surgery. The sling will just be for comfort.
--- NOTE | 2019-10-27 11:08 | SUR.PHASEI ---
Patient taken up to room 217 in good condition with all belongings. Receiving RN at bedside.
[2019-10-27] MEDS: LACTATED RINGERS 1,000 ML 125 ML IV ×2 (11:21→19:54)
--- NOTE | 2019-10-27 14:01 | PT.IIE ---
Current Diagnoses Primary osteoarthritis, right shoulder (10/27/19) Pain in right shoulder (10/27/19) Unspecified rotator cuff tear or rupture of right shoulder, not specified as traumatic (10/27/19) Surgery Performed Operation Date: 10/27/19 07:45 Actual Procedures p Total Shoulder Arthroplasty - Reverse(Right) - Riki Vogel MD Surgical History (Last Updated 10/14/19 @ 13:45 by Reyna Benavidez, HENRY) H/O shoulder surgery (Resolved) History of cholecystectomy (Acute ~2004) History of hernia repair (Acute) Medical History (Last Updated 10/26/19 @ 12:01 by Christine Kramer RN) Acute kidney injury (Acute 05/11/19) Anxiety (Acute) Central sleep apnea (Acute) Depression (Acute) Former smoker (Acute) HLD (hyperlipidemia) (Acute) HTN (hypertension) (Chronic) Hypothyroidism (Chronic) Normocytic anemia (Acute) Patient denies significant medical history (Acute) TIA (transient ischemic attack) (Acute ~04/2019) Physical Therapy Inpatient Evaluation/Re-Eval M1 PT/OT-IP Prior Functional Status Start: 10/27/19 15:19 Freq: NEEDED Status: Active Protocol: Document 10/27/19 14:01 AB (Rec: 10/27/19 15:44 AB [id number]) Medical Review Prior Functional Status Medical History Reviewed Yes Communication able to make needs known Mobility and Gait pt stated that he is independent with all mobilities and ambulation without AD Social History Household Members none Living Arrangements House Number of Floors (Floors) One Floor Number of Stairs To Enter/Railing? 6 steps to enter with L rail ascending Home Environment Standard Height Toilet,Walk in Shower Home Equipment Grab Bars In Shower Additional Social History Comment pt has an adjustable bed; lois pt lives in the same property as her daughter and daughter stated that pt can stay with her if needed. Daughter's house is one level without steps to enter. has a walk in shower without chair and a handheld shower, regular bed. M2 PT-IP Current Condition Start: 10/27/19 15:19 Freq: NEEDED Status: Active Protocol: Document 10/27/19 14:01 AB (Rec: 10/27/19 15:44 AB [id number]) Physical Therapy Current Condition Current Condition Evaluation Date 10/27/19 Treatment Diagnosis s/p R reverse TSA ; difficulty in walking Onset Date 10/27/2019 Precautions Shoulder Precautions Sling,PROM,Internal Rotation to Body,No External Rotation, No Abduction,Forward Flexion to 90 degrees,Pendulums Other Precautions per Dr Vogle's post-op note: Patient will follow our postoperative protocol for a reverse total shoulder arthroplasty. Due to the fact that there was no subscapularis to repair the really is no restrictions to range of motion after surgery. The sling will just be for comfort. Will have to get further clarification regarding pt's precautions. informed nurse and nurse will also attempt to get clarification. Weight Bearing Status Weight Bearing Status Non-Weight Bearing Allowed Weight Bearing Amount (enter % NWB RUE or #) (%) M3 PT-IP Subjective Start: 10/27/19 15:19 Freq: NEEDED Status: Active Protocol: Document 10/27/19 14:01 AB (Rec: 10/27/19 15:44 AB [id number]) Subjective Physical Therapy Visit Type Type Initial Evaluation Visit Start Time 14:01 Visit Stop Time 14:55 Total Visit Minutes 54 Number of TAP AND DIE MAKER TECHNICIAN Visits 0 Physical Therapy Visit Comments Patient Comments pt agreed to do PT Therapy Pain Assessment Pain Present Pain Present Denied Pain M4 PT-IP Mobility and Gait Start: 10/27/19 15:19 Freq: NEEDED Status: Active Protocol: Document 10/27/19 14:01 AB (Rec: 10/27/19 15:44 AB [id number]) PT-Bed Mobility Assessment Supine to Sit Supine to Sit Standby Assistance Sit to Supine Sit to Supine Moderate Assistance PT-Transfer Assessment Sit to and From Stand Sit to and from Stand Minimal Assistance,1 Person Assistance,Use of Upper Extremities Equipment Transfer Assistive Device Gait Belt,Tripod Cane/Hurry Cane Orthotic/Prosthetic Devices or Brace: Yes Comments Mobility Comments O2 sat with O2 on 98%. pt stated that he does not use O2 at home. O2 sat at RA 96%. Checked pt's LE strength and presents with SOB. O2 sat checked: 82% but increased to 90% after cueing to take deep breaths. O2 put back on pt prior to mobility. O2 sat at 96% .pt completed supine to sit SBA and cues. pt was able to sit on EOB SBA. completed sit to stand CGA and cues. c /o nausea. pt instructed to sit backdown. BP 163/78. pt completed sit to stand again CGA and ambulated ~ 8 ft using a hurrycane mod A and cues. pt completed supine to sit mod A and cues. positioned in bed mod A and cues. call light and table placed within reach. Gait Assessment Gait Gait Assistance Required: Moderate Assistance Distance (Feet) 8 Able to Maintain Weight Bearing Status Yes During Gait Assistive Devices Assistive Device Gait Belt,Tripod Cane/Hurry Cane Orthotic/Prosthetic Devices or Brace: Yes Gait Deviations General Gait Pattern Antalgic,Decreased Stride Length,Decreased Feet Clearance,Flexed Trunk Factors Limiting Gait Function Factors Limiting Gait Function Decreased Activity Tolerance, Decreased Sensation,Decreased Strength,Difficulty Following Directions,Incoordination, Limited Range of Motion,Pain, Poor Balance,Poor Safety Awareness,Respiratory Distress Comments Gait Comments pt presents with very unsteady antalgic gait. max cues required for stability and to use hurrycane for suppport. PT-Balance Assessment Sitting Balance and Reactions Static Sitting Balance Ability Good Dynamic Sitting Balance Ability Fair Standing Balance and Reactions Static Standing Balance Ability Fair Dynamic Standing Balance Ability Poor Device Used hurrycane M5 PT-IP Objective Assessments Start: 10/27/19 15:19 Freq: NEEDED Status: Active Protocol: Document 10/27/19 14:01 AB (Rec: 10/27/19 15:44 AB [id number]) Orientation Orientation/Cognition Level of Alertness Alert Orientation Name,Place,Situation Language Function Ability Hard of Hearing Safety Awareness Decreased Safety Awareness Gross Range of Motion Lower Extremity ROM Assessment Within Functional Limits Strength Upper Extremity Strength Assessment Right Impaired Lower Extremity Strength Assessment Within Functional Limits Sensation Assessment Sensation Gross Sensation Right UE Impaired Sensation Description Numbness Muscle Tone Comments Muscle Tone Comments does not have full motor control of RUE yet; able to move fingers and hand but unable to flex/extends elbow M6 PT-IP Treatment Start: 10/27/19 15:19 Freq: NEEDED Status: Active Protocol: Document 10/27/19 14:01 AB (Rec: 10/27/19 15:44 AB [id number]) Physical Therapy Treatment Education Education Provided Precautions,Weight Bearing Status,Post-Op Packet,Safety Brace Education Donning,Rector,Patient, Caregiver Equipment Issued Equipment Type and Company caregiver educated on sling management and was able to assist with donning of sling. M7 PT-IP Assessment and Plan Start: 10/27/19 15:19 Freq: NEEDED Status: Active Protocol: Document 10/27/19 14:01 AB (Rec: 10/27/19 15:44 AB [id number]) PT Summary Assessment and Plan Potential Rehabilitation Potential Good Status of Condition at Evaluation Evolving Summary Impairments Pain,ROM,Strength,Balance, Coordination,Sensation,Tone, Cognition,Bed Mobility, Transfers,Gait,Activity Tolerance Assessment Summary pt presents wtih unsteady gait using a tripod cane requiring mod A and cues. d/c plan depending on progress and how much daughter will be able to assist pt. will continue to monitor and work on pt's goals . Clarification order needed for R shoulder precautions. will f/u with Dr. Olmos or PA. nurse aware of concerns and clarifications needed and will also try to leave a message to the PA/. Goals Bed Mobility Goal Standby Assistance Transfer Goal Standby Assistance,Cane Gait Goal Standby Assistance,Cane Gait Distance 200 Other Goals up/down 6 steps L rail ascending and hurrycane Days to Meet Goals 5 Frequency of Treatment Frequency Of Treatment Twice a Day Treatment Plan Physical Therapy Treatment Plan Bed Mobility Training,Transfer Training,Gait Training, Therapeutic Exercise,Balance Retraining,Post Op Education, Discharge Planning,Hot or Cold Pack,Neuromuscular Re-ed, Coordination Retraining,Manual Therapy Other Recommendations and Next Treatment caregiver traiing when Focus appropriate, stair climbing , ambulation training, bed mobility Recommendations To Nursing Amount of Assist Needed 1 Person Assist Discharge Recommendations PT Discharge Recommendations Home with 20/04 Assist, Outpatient PT Transportation Needs at Discharge Private Vehicle
--- NOTE | 2019-10-27 15:55 | CM.DANOTE ---
Addendum entered by Arlene Norris LPN 10/27/19 16:06: Do see that PT Billie was able to see pt this afternoon and that she is recommending home, outpt PT and family help. Her daughter Yumi confirms that pt can stay in the family home if need be (he lives in a dwelling on the same property.) Will check in tomorrow as per plan. Original Note: Discharge Planning/Care Management DCP: case received and discussed briefly in Team Rounds. Pt is an 84 year old male who admitted this morning for a planned R reverse TSA: sling for comfort. Dr. Vogel confirms in his documentation: no restrictions post op. Payer: Medicare and for Life Admission status: confirmed INPT: by UR HENRY Reddy. PCP: Dr. Antonino Sandhu. Pt's preop plan for home with family care is noted: see the 10/05 assessment by CAB: below. Pt has been in surgery much of the day. Will plan to see him tomorrow to continue the assessment process at bedside. Expect that PT/OT will be involved. Will follow accordingly. CM Discharge Assessment Start: 10/27/19 15:54 Freq: Status: Active Protocol: Document 10/27/19 15:54 ITV (Rec: 10/27/19 15:55 ITV [id number]) Discharge Planning Assessment Advance Directives? Yes Advance Directives on File No History Provided By Medical Record Prior Living Arrangements House Household Members none Review Status In Process Pre-Anesthesia Assessment Start: 10/05/19 08:20 Freq: Status: Active Protocol: Document 10/24/19 09:12 CAB (Rec: 10/05/19 09:05 CAB [id number]) Pre-Anesthesia Assessment Patient Information Reviewed Via Chart Review,Phone Assessment Assessment Completed With Patient,Child Diagnostic Results BMP/CMP,CBC,EKG,Urinalysis Comment Outside labs/EKG scanned to record. Surgeon H&P not available Primary Care Provider Antonino Sandhu Medical Clearance Received Yes Seen Specialist in Last 12 Months Yes Specialist Seen Orthopedist Primary Language Guinean Preferred Language Guinean Organ Tuner Required No Height 162.56 cm Weight 58.967 kg Body Mass Index (BMI) 22.3 Hearing Ability Hard of Hearing,Use of Hearing Aid Visual Assist Magnifying Glass Dentition Type Teeth, Missing Barriers to Learning Age related,Auditory,Memory Hx Anesthesia Reactions No Hx Family Anesthesia Reaction No Hx Malignant Hyperthermia No Hx Blood Transfusions No Anesthesia Review Requested Yes: Surgeon requested re:TIA Ends Breakage Clerk No alcohol intake former Alcohol Intake Frequency Other: stopped 2001 Smoking Status Former smoker how long ago did patient quit smoking 1969 >30 pack year history Substance Use Type does not use Pain Present Pain Reported Musculoskeletal Symptoms Joint Pain,Limited Range of Motion History of Falling (Recent or History of No ) Patient is completely paralyzed or No completely immobile Prosthesis or Orthotic Device Cane Mental Status Oriented to own ability Comment Poor balance Is patient on oxygen? No Does patient have RICHARDS/SOB No Hx Sleep Apnea Yes CPAP/BIPAP use prescribed and used routinely Currently Taking a Beta Willis No Can You Climb a Flight of Stairs Without Yes SOB Hx Chest Pain No Hx SOB No Hx Syncope or Dizziness No Anti-Coagulant Therapy Yes: ASA 81mg/daily Has a Pro Shop Attendant No Cardiac Testing Yes: Echo @ 05/12/19 Hx Pacemaker/ICD No Pacemaker Rep Required? No Cardiac Clearance Received Not Applicable Diet Type At Home Regular dysphagia No Urinary Catheter Present No Hx Urinary Self Catheterization No Diabetes No Hx Drug Resistant Organism No Presence of External or Internal Medical Yes: CPAP Devices Have you traveled outside the [facility] in the last 30 days? Marital Status / Lives With children Prior Living Arrangements House Number of Floors (Floors) One Floor Support System Child/Children Does the Patient Have Assistance After Yes: Lives in separate Surgery dwelling on daughter's property Patient Discharge Plan Description Return Home Comment Recently moved from [facility] Not advised on length of stay per surgeon Feels Safe in Current Environment Yes Been Physically Hurt or Threatened By a No Person in Current Environment Do you have thoughts of harming yourself None or others? Are you currently considering suicide? No Do you have a plan to hurt yourself or No Plan others? Do You Have Any Spiritual Beliefs That No May Affect Your HC Choices? Do You Have Any Cultural Practices That No May Affect Your HC Choices? Comment Christian Who Can We Speak to About Patient's Care Family, friends Identifying Code for Release of Patient Declines to issue Information Health Care Proxy/Next of Kin Yumi (daughter) Aidan (son -in-law) Health Care Proxy Phone Number Yumi: [phone] Aidan: [phone] Emergency Contact Name Yumi (daughter) Aidan (son -in-law) Emergency Contact Phone Number Yumi: [phone] Aidan: [phone] Advance Directives? Yes Advance Directives on File No Requested Patient Bring Advanced Yes Directives DOS Power of Extrusion Die Template Maker Yes Power of Extrusion Die Template Maker Name Yumi (daughter) Power of Extrusion Die Template Maker PAC Instructions Bring CPAP/BIPAP,Durable medical equipment,Medications to take/avoid,Nasal antibiotic ,No ETOH/petroleum product on skin DOS,NPO,Post-op transportation,Pre-surgical wash,Sensory aids,Sturdy shoes /comfortable clothes,Do not bring valuables and remove jewelry
[2019-10-27] MEDS: DOCUSATE 100 MG CAPSULE PO (20:28)
[2019-10-27] MEDS: MAGNESIUM HYDROXIDE 30 ML UDC PO (20:28)
[2019-10-27] MEDS: buPROPion SR 150 MG TAB PO (20:28)
[2019-10-27] MEDS: HYDROCODONE/ACET 5/325 TABLET 2 TAB PO (20:29)
[2019-10-28] MEDS: HYDROCODONE/ACET 5/325 TABLET 2 TAB PO (02:30)
[2019-10-28 04:50] VITALS: BP 110/54; PULSE 96; RESP 16; TEMP 37.3; O2SAT 92
[2019-10-28] MEDS: LACTATED RINGERS 1,000 ML 125 ML IV (04:51)
[2019-10-28 05:53] LABS: Hematocrit 25.9 % (41-53); Hemoglobin 8.9 g/dL (13.5-17.5); Mean Corpuscular HGB Conc 34.4 % (30-36); Mean Corpuscular Hemoglobin 32.3 PG (26-34); Platelet Count 155 X10^3/uL (150-400); Red Blood Cell Count 2.76 X10^6/uL (4.5-5.9); Red Cell Distribution Width 13.3 % (11.6-14.8); White Blood Cell Count 6.8 X10^3/uL (4.5-11.0)
--- NOTE | 2019-10-28 06:22 | PC.NURSE ---
Pt alert and oriented x4. Pt refusing CPAP nursing home during the night. Pt sats running in the high 80s this AM while pt was sleeping. Started on 2L O2 and o2 sats back upto 96%. Pain resolved with giving norco. Pt has no complaints at this time
[2019-10-28] MEDS: ACETAMINOPHEN 325 MG TABLET 975 MG PO ×2 (06:48→18:25)
[2019-10-28] MEDS: LEVOTHYROXINE 75 MCG TABLET PO (06:48)
[2019-10-28 06:51] VITALS: O2SAT 95
[2019-10-28 08:00] VITALS: BP 127/69; PULSE 89; RESP 15; TEMP 36.4; O2SAT 95
--- NOTE | 2019-10-28 09:05 | PT.IPTN ---
Current Diagnoses Primary osteoarthritis, right shoulder (10/27/19) Pain in right shoulder (10/27/19) Unspecified rotator cuff tear or rupture of right shoulder, not specified as traumatic (10/27/19) Surgery Performed Operation Date: 10/27/19 07:45 Actual Procedures p Total Shoulder Arthroplasty - Reverse(Right) - Riki Vogel MD Physical Therapy Treatment Note M2 PT-IP Current Condition Start: 10/27/19 15:19 Freq: NEEDED Status: Active Protocol: Document 10/27/19 14:01 AB (Rec: 10/27/19 15:44 AB [id number]) Physical Therapy Current Condition Current Condition Evaluation Date 10/27/19 Treatment Diagnosis s/p R reverse TSA ; difficulty in walking Onset Date 10/27/2019 Precautions Shoulder Precautions Sling,PROM,Internal Rotation to Body,No External Rotation, No Abduction,Forward Flexion to 90 degrees,Pendulums Other Precautions per Dr Vogel's post-op note: Patient will follow our postoperative protocol for a reverse total shoulder arthroplasty. Due to the fact that there was no subscapularis to repair the really is no restrictions to range of motion after surgery. The sling will just be for comfort. Will have to get further clarification regarding pt's precautions. informed nurse and nurse will also attempt to get clarification. Weight Bearing Status Weight Bearing Status Non-Weight Bearing Allowed Weight Bearing Amount (enter % NWB RUE or #) (%) M3 PT-IP Subjective Start: 10/27/19 15:19 Freq: NEEDED Status: Active Protocol: Document 10/28/19 09:05 AB (Rec: 10/28/19 10:03 AB [id number]) Subjective Physical Therapy Visit Type Type Treatment Note Visit Start Time 09:05 Visit Stop Time 09:41 Total Visit Minutes 36 Number of DIESEL POWERPLANT MECHANIC Visits 0 Physical Therapy Visit Comments Patient Comments pt agreeable to do PT; daughter in room wiht pt Therapy Pain Assessment Pain When Pain Assessed At Rest Pain Present Pain Present Pain Reported Location right shoulder Intensity 3 Scale Used Numeric (1 - 10) Pain Management Techniques Re-positioning,Timing of Activity with Medications M4 PT-IP Mobility and Gait Start: 10/27/19 15:19 Freq: NEEDED Status: Active Protocol: Document 10/28/19 09:05 AB (Rec: 10/28/19 10:03 AB [id number]) PT-Bed Mobility Assessment Supine to Sit Supine to Sit Moderate Assistance,Maximum Assistance,1 Person Assistance Scooting Scooting to Edge of Bed Moderate Assistance PT-Transfer Assessment Sit to and From Stand Sit to and from Stand Minimal Assistance,Moderate Assistance,1 Person Assistance ,Use of Upper Extremities Equipment Transfer Assistive Device Gait Belt,Tripod Cane/Hurry Cane Orthotic/Prosthetic Devices or Brace: Yes Transfers Transfer Destination Chair Transfer Technique ambulated using FWW Transfer Ability Level of Assist Moderate Assistance,1 Person Assistance,Use of Upper Extremities Comments Mobility Comments pt completed supine to sit mod A and cues. caregiver training initiated and educated on how to assist pt with bed mobility. daughter was able to assist pt. pt was able to sit on EOB initially with mod A but after repositioning was able to maintain sitting on EOB SBA. daughter was able to jordin/doff sling with cues provided. pt completed elbow/hand exercises on EOB. pt completed sit to stand from EOB mod A and cues x 2 attempts with cues for techniques and safety. pt very unsteady and requires mod A with initial standing. ambulated towards the chair mod A and cues. pt with unsteady gait. c/o nausea after ambulation. BP 137/74. positioned pt on chair. will attempt further caregiver training in the afternoon. informed pt and daughter regarding recommendation of SNF at this time and daughter wants to talk to hospital social worker for directions. will inform family caseworker. Gait Assessment Gait Gait Assistance Required: Moderate Assistance Distance (Feet) 10 Able to Maintain Weight Bearing Status Yes During Gait Assistive Devices Assistive Device Gait Belt,Tripod Cane/Hurry Cane Orthotic/Prosthetic Devices or Brace: Yes Gait Deviations General Gait Pattern Antalgic,Decreased Stride Length,Decreased Feet Clearance,Flexed Trunk,Step-to Gait Factors Limiting Gait Function Factors Limiting Gait Function Decreased Activity Tolerance, Decreased Strength,Limited Range of Motion,Pain,Poor Balance,Poor Safety Awareness Comments Gait Comments pls refer to mobility section for details M5 PT-IP Objective Assessments Start: 10/27/19 15:19 Freq: NEEDED Status: Active Protocol: Document 10/27/19 14:01 AB (Rec: 10/27/19 15:44 AB [id number]) Orientation Orientation/Cognition Level of Alertness Alert Orientation Name,Place,Situation Language Function Ability Hard of Hearing Safety Awareness Decreased Safety Awareness Gross Range of Motion Lower Extremity ROM Assessment Within Functional Limits Strength Upper Extremity Strength Assessment Right Impaired Lower Extremity Strength Assessment Within Functional Limits Sensation Assessment Sensation Gross Sensation Right UE Impaired Sensation Description Numbness Muscle Tone Comments Muscle Tone Comments does not have full motor control of RUE yet; able to move fingers and hand but unable to flex/extends elbow M6 PT-IP Treatment Start: 10/27/19 15:19 Freq: NEEDED Status: Active Protocol: Document 10/28/19 09:05 AB (Rec: 10/28/19 10:03 AB [id number]) Physical Therapy Treatment Exercises Exercises Elbow Flexion/Extension,Wrist ROM,Hand ROM Education Education Provided Safety M7 PT-IP Assessment and Plan Start: 10/27/19 15:19 Freq: NEEDED Status: Active Protocol: Document 10/28/19 09:05 AB (Rec: 10/28/19 10:03 AB [id number]) PT Summary Assessment and Plan Potential Rehabilitation Potential Good Summary Impairments Pain,ROM,Strength,Balance, Coordination,Sensation,Tone, Cognition,Bed Mobility, Transfers,Gait,Activity Tolerance Progress Towards Goals Slow Progress due to Activity Tolerance Assessment Summary pt requiring mod A with mobility using a hurrycane. needs 24/ assist at this time and daughter stated that she works and cannot provide that level of assist. recommending SNF rehab to improve strength and mobility. no clarification obtained from the doctor or PA regarding pt' s protocols. will continue to f/u. Goals Bed Mobility Goal Standby Assistance Transfer Goal Standby Assistance,Cane Gait Goal Standby Assistance,Cane Gait Distance 200 Other Goals up/down 6 steps L rail ascending and hurrycan Days to Meet Goals 5 Frequency of Treatment Frequency Of Treatment Twice a Day Treatment Plan Physical Therapy Treatment Plan Bed Mobility Training,Transfer Training,Gait Training, Therapeutic Exercise,Balance Retraining,Post Op Education, Discharge Planning,Hot or Cold Pack,Neuromuscular Re-ed, Coordination Retraining,Manual Therapy Other Recommendations and Next Treatment caregiver traiing when Focus appropriate, stair climbing , ambulation training, bed mobility Recommendations To Nursing Amount of Assist Needed 1 Person Assist Discharge Recommendations PT Discharge Recommendations SNF Rehab Transportation Needs at Discharge Private Vehicle,Wheelchair/ Cabulance
[2019-10-28] MEDS: buPROPion SR 150 MG TAB PO ×2 (09:56→20:58)
[2019-10-28] MEDS: ATORVASTATIN 20 MG TABLET 40 MG PO (09:56)
[2019-10-28] MEDS: polyethylene glycoL 3350 17 GM POWD.PACK PO (09:56)
[2019-10-28] MEDS: ONDANSETRON 4 MG ODT PO (09:57)
[2019-10-28] MEDS: DOCUSATE 100 MG CAPSULE PO ×2 (09:57→20:58)
[2019-10-28] MEDS: MULTIVITAMIN 1 TABLET 1 TAB PO (09:57)
[2019-10-28] MEDS: ASPIRIN EC 81 MG TABLET PO (09:57)
[2019-10-28] MEDS: AMLODIPINE 2.5 MG TABLET PO (09:58)
--- NOTE | 2019-10-28 11:38 | CM.DPC ---
Addendum entered by Arlene Norris LPN 10/28/19 15:16: [facility] has now confirmed acceptance of pt for 10/19 or >, depending when she is ready for d/c. PT and his daughter are updated and both express relief at hearing the plan is firm. Pt expresses thankfulness for the assist. No longer seems ambivalent to the plan. DCP team will be following. Addendum entered by Arlene Norris LPN 10/28/19 11:52: Spoke now with ortho ARNOLDO Rivera. She agrees with below plan. Said she has just spoken with Billie, had already placed the OT note and she, herself, also needed more clarity re the precautions/restrictions that Dr. Almanza had ordered and will contact him to find out more info. Original Note: DCP: continued: met with pt and his daughter Yumi and her Aidan. Introduced self and role. PT Billie has worked again with pt and she is now recommending snf level care before returning to his home and his party chief family assistance. Pt is reluctantly agreeable to same. His daughter is encouraging him to this on the advice of the PT. SNF choice list: discussed: decision: [facility]: referral: to February and is in review. Anticipate acceptance. Expect pt will be ready for d/c by Monday 10/30. Orthopedic team has not yet rounded today and they are unaware of this change in the PT recommendation. PT Billie will be talking with whomever rounds as she says she also needs more clarity on any restrictions that pt may have. ? of OT, especially if snf will be needed. Will request order for same from rounding ortho. P: at this point: [facility] 10/19 or > and pending the facility's acceptance. PASRR: needed.
--- NOTE | 2019-10-28 13:55 | PT.IPTN ---
Current Diagnoses Primary osteoarthritis, right shoulder (10/27/19) Pain in right shoulder (10/27/19) Unspecified rotator cuff tear or rupture of right shoulder, not specified as traumatic (10/27/19) Surgery Performed Operation Date: 10/27/19 07:45 Actual Procedures p Total Shoulder Arthroplasty - Reverse(Right) - Riki Vogel MD Physical Therapy Treatment Note M2 PT-IP Current Condition Start: 10/27/19 15:19 Freq: NEEDED Status: Active Protocol: Document 10/28/19 13:55 AB (Rec: 10/28/19 15:35 AB [id number]) Physical Therapy Current Condition Precautions Brace sling for comfort Other Precautions received clarification from ARNOLDO Rivera this afternoon 2019 . stated that pt has no ROM restrictions and can do AROM and sling is for comfort Weight Bearing Status Weight Bearing Status Non-Weight Bearing Allowed Weight Bearing Amount (enter % NWB RUE or #) (%) M3 PT-IP Subjective Start: 10/27/19 15:19 Freq: NEEDED Status: Active Protocol: Document 10/28/19 13:55 AB (Rec: 10/28/19 15:35 AB [id number]) Subjective Physical Therapy Visit Type Type Treatment Note Visit Start Time 13:55 Visit Stop Time 14:20 Total Visit Minutes 25 Number of EXPLOSIVE ORDNANCE SPECIALIST Visits 0 Physical Therapy Visit Comments Patient Comments pt agreeable to do PT Therapy Pain Assessment Pain When Pain Assessed At Rest Pain Present Pain Present Pain Reported Location right shoulder Intensity 2 Scale Used Numeric (1 - 10) M4 PT-IP Mobility and Gait Start: 10/27/19 15:19 Freq: NEEDED Status: Active Protocol: Document 10/28/19 13:55 AB (Rec: 10/28/19 15:35 AB [id number]) PT-Bed Mobility Assessment Sit to Supine Sit to Supine Moderate Assistance,1 Person Assistance PT-Transfer Assessment Sit to and From Stand Sit to and from Stand Moderate Assistance,1 Person Assistance,Use of Upper Extremities Equipment Transfer Assistive Device None,Gait Belt,Tripod Cane/ Hurry Cane,Front Wheeled Walker Orthotic/Prosthetic Devices or Brace: No Transfers Transfer Destination Bed,Chair Comments Mobility Comments informed pt regarding clarification with R shoulder precautions and pt understood. pt wants to try to have the sling off and PT assisted with doffing of sling. pt agreed to do ambulation. completed ambulation using tripod cane 15 ft requiring mod A and cues with (+) LOB x 3 posteriorly and to the L. assessed ambulation without AD and completed 15 ft mod A and cues (+) LOB x 3. Assessed ambulation using FWW. educated on hold FWW on R with UE for balance but no weight bearing and pt understood. pt completed ambulation using FWW in room 20 ft min A and cues (+) LOB x1. pt requested to just stay up on the chair. positioned pt on the chair, call light and table placed within reach. Talked to nurse regarding shoulder precautions clarification and nurse understood. checked back on pt and daughter in room and pt was using the toilet. daughter stated that she assisted pt to the toilet using FWW. PT took over. pt completed ambulation from the toilet to the bed using FWW min A. pt completed sit to supine mod A with LE elevation and cues for techniques. positioned pt on the bed. call light and table placed within reach. informed pt's daughter regarding R shoulder precautions clarification and understood. daughter asked regarding d/c recommendation and informed her that PT continues to require 24/7 assist and will require SNF rehab. Gait Assessment Gait Gait Assistance Required: Minimum Assistance,Moderate Assistance Distance (Feet) 20 Able to Maintain Weight Bearing Status Yes During Gait Assistive Devices Assistive Device None,Gait Belt,Tripod Cane/ Hurry Cane,Front Wheeled Walker Gait Deviations General Gait Pattern Antalgic,Decreased Stride Length,Decreased Feet Clearance,Flexed Trunk,Lateral Trunk Lean,Step-to Gait Factors Limiting Gait Function Factors Limiting Gait Function Decreased Activity Tolerance, Decreased Strength,Poor Balance,Poor Safety Awareness Comments Gait Comments pls refer to mobility section for details M5 PT-IP Objective Assessments Start: 10/27/19 15:19 Freq: NEEDED Status: Active Protocol: Document 10/27/19 14:01 AB (Rec: 10/27/19 15:44 AB [id number]) Orientation Orientation/Cognition Level of Alertness Alert Orientation Name,Place,Situation Language Function Ability Hard of Hearing Safety Awareness Decreased Safety Awareness Gross Range of Motion Lower Extremity ROM Assessment Within Functional Limits Strength Upper Extremity Strength Assessment Right Impaired Lower Extremity Strength Assessment Within Functional Limits Sensation Assessment Sensation Gross Sensation Right UE Impaired Sensation Description Numbness Muscle Tone Comments Muscle Tone Comments does not have full motor control of RUE yet; able to move fingers and hand but unable to flex/extends elbow M6 PT-IP Treatment Start: 10/27/19 15:19 Freq: NEEDED Status: Active Protocol: Document 10/28/19 13:55 AB (Rec: 10/28/19 15:35 AB [id number]) Physical Therapy Treatment Exercises Exercises Elbow Flexion/Extension Education Education Provided Precautions,Weight Bearing Status,Safety M7 PT-IP Assessment and Plan Start: 10/27/19 15:19 Freq: NEEDED Status: Active Protocol: Document 10/28/19 13:55 AB (Rec: 10/28/19 15:35 AB [id number]) PT Summary Assessment and Plan Potential Rehabilitation Potential Good Summary Impairments Pain,ROM,Strength,Balance, Coordination,Sensation,Tone, Cognition,Bed Mobility, Transfers,Gait,Activity Tolerance Progress Towards Goals Progressing Toward Goals Assessment Summary Received shoulder precautions clarification today and pt has no restriction with ROM and sling is for comfort. Assessed pt ambulation using tripod cane, FWW and without AD with sling off and pt continues to require min to mod A and has (+) LOB duirng ambulation. Pt will continue to require SNF rehab to improve strenght and mobility. Goals Bed Mobility Goal Standby Assistance Transfer Goal Standby Assistance,Front Wheeled Walker Gait Goal Standby Assistance,Front Wheel Walker Gait Distance 200 Other Goals up/down 6 steps L rail ascending and hurrycane Days to Meet Goals 5 Frequency of Treatment Frequency Of Treatment Twice a Day Treatment Plan Physical Therapy Treatment Plan Bed Mobility Training,Transfer Training,Gait Training, Therapeutic Exercise,Balance Retraining,Post Op Education, Discharge Planning,Hot or Cold Pack,Neuromuscular Re-ed, Coordination Retraining,Manual Therapy Other Recommendations and Next Treatment caregiver traiing when Focus appropriate, stair climbing , ambulation training, bed mobility Recommendations To Nursing Amount of Assist Needed 1 Person Assist Discharge Recommendations PT Discharge Recommendations SNF Rehab Transportation Needs at Discharge Private Vehicle,Wheelchair/ Cabulance
[2019-10-28 15:49] VITALS: BP 132/75; PULSE 94; RESP 15; TEMP 37.2; O2SAT 92
--- NOTE | 2019-10-28 16:02 | PM.PN.1 ---
Subjective Subjective Date Patient Seen: 10/28/19 Time Patient Seen: 16:02 Interval history: Patient is POd# 1 s/p right reverse total shoulder arthroplasty with Dr. Vogel. Pain has been minimal. He has mobilized about the room but complained of nausea with this. Declined medication for this. Per his accounting and PT he was shaky and unstable with limited mobility attempted today. Denies any chest pain or shortness of breath. No numbness or tingling in the extremity. Exam Vital Signs (past 8 hours): - 10/28/19 15:49 Temperature 99.0 F Pulse Rate 94 H Respiratory Rate 15 Blood Pressure 132/75 Pulse Oximetry 92 Oxygen Delivery Method Room Air,CPAP Oxygen Flow Rate 2 Narrative Exam Narrative: 84 year old male resting comfortably in bed. Alert and oriented in no acute distress. Dressing in place is CDI. Good ROM of the wrist and fingers. Sensation intact to light touch. Caustic Plant Worker strength is equal. Objective Labs Result Diagrams: 10/28/19 05:36 Labs: Laboratory Results - last 24 hr 10/28/19 05:36 WBC 6.8 RBC 2.76 L Hgb 8.9 L Hct 25.9 L MCV 94.0 MCH 32.3 MCHC 34.4 RDW 13.3 Plt Count 155 Assessment & Plan Assessment & Plan narrative: Continue present pain management. OT added as patient having some difficulty with mobility. Per the patient and available family he had poor mobility preoperatively and has a history of balance problems. He does not have anyone available as a multimedia manager caregiver. Continue to work with PT. Current PT recommendations are to discharge to SNF. Patient is agreeable to this. Will continue to work with PT and monitor his progress. No restrictions to range of motion per Dr. Vogel. He may continue to use sling for comfort.
--- NOTE | 2019-10-28 18:37 | PC.NURSE ---
Addendum entered by Micheline Schneider R.N. 10/28/19 21:08: Hemovac site to right upper arm with saturated dressing. This was removed. No active bleeding from site. Replaced with folded 2 x 2 and tedagerm. Original Note: Pt quietly resting in bed with head of bed elevated reading on ipad. Admits to right shoulder pain 4-5/10. Tylenol given as per emar. Declines offer to replace sling and/or add ice. Pt reports full sensation to right hand. Able to container repairer. Palpable radial pulse right hand. Encouraged to call for needs. BL calf scd's in place.
[2019-10-28 19:49] VITALS: BP 118/61; PULSE 111; RESP 15; TEMP 37.6; O2SAT 96
[2019-10-28] MEDS: MAGNESIUM HYDROXIDE 30 ML UDC PO (20:58)
[2019-10-28] MEDS: SODIUM CHLORIDE 0.9% FLUSH 10 ML IV (20:58)
[2019-10-29 00:05] VITALS: BP 139/71; PULSE 109; RESP 18; TEMP 36.8; O2SAT 92
[2019-10-29 04:20] VITALS: BP 136/70; PULSE 103; RESP 18; TEMP 36.8; O2SAT 89
[2019-10-29] MEDS: ACETAMINOPHEN 325 MG TABLET 975 MG PO ×3 (05:53→20:24)
[2019-10-29] MEDS: LEVOTHYROXINE 75 MCG TABLET PO (05:57)
--- NOTE | 2019-10-29 07:00 | PC.NURSE ---
Declined Dulcolax suppository this morning. Encouraged to to wiggle his fingers kristina. right fingers. RUE edematous ice pack applied, agreed to take Tylenol 975 mg. pain level reported 4-510. Will ont. POC & monitor.
[2019-10-29 08:00] VITALS: BP 111/57; PULSE 88; RESP 15; TEMP 37.1; O2SAT 92
--- NOTE | 2019-10-29 08:34 | PM.PNPO.1 ---
Subjective Subjective Date Patient Seen: 10/29/19 Time Patient Seen: 08:35 Interval history: He is doing very well. Pain is about a 2 or 3 with medication. However, very limited mobility and still requiring assistance. Exam Vital Signs (past 8 hours): - 10/29/19 04:20 Temperature 98.3 F Pulse Rate 103 H Respiratory Rate 18 Blood Pressure 136/70 Pulse Oximetry 89 L Oxygen Delivery Method Room Air Oxygen Flow Rate 0 Const Orientation: alert and oriented x3 Extrem Other: Dressing clean dry intact. Easy wiggles fingers intact sensation in right hand Objective Labs Result Diagrams: 10/28/19 05:36 Assessment & Plan Post-op Postoperative Procedures: Procedures Operation Date: 10/27/19 07:45 Actual Procedures Side Surgeon p Total Shoulder Arthroplasty - Reverse Right Riki Vogel MD pain felix he is doing very well. Still limited on his mobility and requiring assistance. Plan for senior care tomorrow as he lives at home by himself and is not safe currently..
--- NOTE | 2019-10-29 08:36 | P.DS_ITS ---
History of Present Illness History of Present Illness Date Patient Seen: 10/30/19 Time Patient Seen: 07:56 Chief complaint: [id number] Narrative: 84-year-old male with right shoulder arthritis. He has a history of rotator cuff injury in the past. Pain has been bothering him for decades but much worse over the past year. He has gone through physical therapy. Discharge Providers Provider Date of admission: 10/27/19 06:05 Discharge Date: 10/30/19 Primary care physician: Antonino Sandhu MD Consults: 10/24/19 09:47 Consult to Anesthesiology Routine Comment: Consulting Provider: Anesthesiologist Reason for consultation: Surgeon requested re: TIA 10/27/19 07:15 Consult to Respiratory Therapy Evaluate & Treat Comment: Physician Instructions: Evaluate and treat 10/27/19 10:03 Consult to Discharge Planning Routine Comment: Consult to Physical Therapy Evaluate & Treat Comment: Physician Instructions: Evaluate and Treat Consult to Respiratory Therapy Evaluate & Treat Comment: Physician Instructions: Evaluate and treat 10/28/19 11:49 Consult to Occupational Therapy Evaluate & Treat Comment: reverse total shoulder Physician Instructions: Evaluate and treat Discharge provider: Antonino Fry MD Summary Hospital Course Discharge Diagnosis: Right shoulder arthritis Hospital Course: He is brought to the operating room with Dr. Vogel on 10/27/19 where he underwent a right reversed total shoulder arthroplasty. His rotator cuff was intact at the time of surgery and because this did not require a re pair, he was not given postoperative mobility restrictions. Postoperatively his pain was under good control with oral medication. However, he was still quite limited in his mobility due to lack of use of the right arm. Arrangements were made for [facility]. Exam Vital Signs (past 8 hours): - 10/29/19 04:20 Temperature 98.3 F Pulse Rate 103 H Respiratory Rate 18 Blood Pressure 136/70 Pulse Oximetry 89 L Oxygen Delivery Method Room Air Oxygen Flow Rate 0 Const Orientation: alert and oriented x3 Extrem Other: CDI. Easily wiggles fingers, intact sensation good telephone advice nurse and right arm. Objective Labs Result Diagrams: 10/28/19 05:36 Discharge Plan Discharge Plan Patient Disposition: SNF Transfer to: [facility] Under care of provider: Facility physician Consult as needed: Dental, Hearing, Mental health, Podiatry and Vision Discharge orders & Medications Prescriptions: New hydrocodone-acetaminophen 5-325 mg Tablet See Rx Instructions .ROUTE .COMPLEX PRN (Reason: Pain, Moderate (4-6)) Qty: 30 RF: 0 Continued atorvastatin 40 mg Tablet 40 mg PO DAILY Qty: 0 RF: 0 cranberry 1 cap PO DAILY RF: 0 amlodipine 2.5 mg Tablet 2.5 mg PO DAILY RF: 0 aspirin 81 mg Tablet,Delayed Release (Dr/Ec) 81 mg PO DAILY RF: 0 multivitamin Tablet 1 tab PO DAILY RF: 0 bupropion HCl 150 mg Tablet Sustained-Release 12 Hr 150 mg PO BID RF: 0 triamcinolone acetonide 0.1 % Cream 1 applic TOPICAL DAILY RF: 0 levothyroxine 75 mcg Tablet 75 mcg PO DAILY RF: 0 fluorouracil 0.5 % Cream 1 applic TOPICAL DAILY RF: 0 Follow up/Referrals: Antonino Sandhu MD [Primary Care Provider] - Discharge Health Status Multidrug resistant organism: No MDRO Precautions: [place] Diet/Activity/Treatments Diet: Diet as Tolerated Liquid consistency: Normal/Thin Food texture: Regular Activity: reverse total shoulder arthroplasty protocols. No strict ROM restrictions as the rotator cuff did not require repair Skin/Wound/Dressing Care Report to your healthcare provider any signs of infection, such as:: chills, fever, night sweats, increased pain, unusual drainage and unusual redness Dressing: may shower prn, keep dressing intact Special Rehabilitation Services Reason for rehabilitation: Post-operative therapy Rehab type: Physical therapy and Occupational therapy Visit Report/Discharge Packet Instructions: DI for Prescription Opioid Use, DI for Shoulder Replacement Stand Alone Forms: Surgery Discharge Discharge Data Primary Care Provider: Antonino Sandhu
[2019-10-29] MEDS: AMLODIPINE 2.5 MG TABLET PO (09:25)
[2019-10-29] MEDS: ATORVASTATIN 20 MG TABLET 40 MG PO (09:25)
[2019-10-29] MEDS: ASPIRIN EC 81 MG TABLET PO (09:25)
[2019-10-29] MEDS: buPROPion SR 150 MG TAB PO ×2 (09:26→20:23)
[2019-10-29] MEDS: polyethylene glycoL 3350 17 GM POWD.PACK PO (09:26)
[2019-10-29] MEDS: SODIUM CHLORIDE 0.9% FLUSH 10 ML IV ×2 (09:26→20:23)
[2019-10-29] MEDS: DOCUSATE 100 MG CAPSULE PO ×2 (09:26→20:23)
[2019-10-29] MEDS: MULTIVITAMIN 1 TABLET 1 TAB PO (09:26)
--- NOTE | 2019-10-29 10:28 | PT.IPTN ---
Current Diagnoses Primary osteoarthritis, right shoulder (10/27/19) Pain in right shoulder (10/27/19) Unspecified rotator cuff tear or rupture of right shoulder, not specified as traumatic (10/27/19) Surgery Performed Operation Date: 10/27/19 07:45 Actual Procedures p Total Shoulder Arthroplasty - Reverse(Right) - Riki Vogel MD Physical Therapy Treatment Note M2 PT-IP Current Condition Start: 10/27/19 15:19 Freq: NEEDED Status: Active Protocol: Document 10/28/19 13:55 AB (Rec: 10/28/19 15:35 AB [id number]) Physical Therapy Current Condition Precautions Brace sling for comfort Other Precautions received clarification from ARNOLDO Rivera this afternoon 2019 . stated that pt has no ROM restrictions and can do AROM and sling is for comfort Weight Bearing Status Weight Bearing Status Non-Weight Bearing Allowed Weight Bearing Amount (enter % NWB RUE or #) (%) M3 PT-IP Subjective Start: 10/27/19 15:19 Freq: NEEDED Status: Active Protocol: Document 10/29/19 10:08 KS (Rec: 10/29/19 11:19 KS [id number]) Subjective Physical Therapy Visit Type Type Treatment Note Visit Start Time 10:08 Visit Stop Time 10:28 Total Visit Minutes 20 Notes Pts daughter Yumi present during treatmnet, introduced caregiver training. Number of CLOTH PRINTING INSPECTOR Visits 1 Physical Therapy Visit Comments Patient Comments pt agreeable to do PT Therapy Pain Assessment Pain When Pain Assessed During Mobility Pain Present Pain Present Pain Reported Location right shoulder Intensity 2 Scale Used Numeric (1 - 10) Pain Management Techniques Re-positioning M4 PT-IP Mobility and Gait Start: 10/27/19 15:19 Freq: NEEDED Status: Active Protocol: Document 10/29/19 10:08 KS (Rec: 10/29/19 11:19 KS [id number]) PT-Bed Mobility Assessment Scooting Scooting to Edge of Bed Contact Guard Assistance PT-Transfer Assessment Sit to and From Stand Sit to and from Stand Contact Guard Assistance,1 Person Assistance,Use of Upper Extremities Equipment Transfer Assistive Device Gait Belt,Front Wheeled Walker Transfers Transfer Destination Chair Transfer Technique Pt ambulated using FWW. Transfer Ability Level of Assist Contact Guard Assistance, Minimal Assistance,1 Person Assistance,Use of Upper Extremities Comments Mobility Comments Pt was reclined in chair upon arrival from therapy and eager to go for a walk. Pt was able to flex/extend fingers and wrist, but has increased pain w/ elbow flexion/extension. CGA for scooting to edge of chair. Pt is slightly impulsive and needed reminder to stay seated until FWW is available for use. CGA for sit <>stand w/ FWW and reminder for NWB through RUE. Pt then ambulated w/ FWW and returned to chair. CGA for stand<>sit w / cues for proper FWW management and reaching back w / LUE to slowly lower into chair. Pts O2 checked after walk:94% on RA and HR 103. Pts feet do not reach floor when sitting, so max A for scooting back in chair. Pt positioned comfortably in chair w/ pillow between legs to prevent leg crossing and all needs in reach w/ daughter in room. Gait Assessment Gait Gait Assistance Required: Contact Guard Assist,Minimum Assistance,1 Person Assist Distance (Feet) 300 Able to Maintain Weight Bearing Status Yes During Gait Assistive Devices Assistive Device Gait Belt,Front Wheeled Walker Orthotic/Prosthetic Devices or Brace: No Gait Deviations General Gait Pattern Antalgic,Decreased Stride Length,Decreased Feet Clearance,Flexed Trunk Factors Limiting Gait Function Factors Limiting Gait Function Decreased Activity Tolerance, Decreased Strength,Poor Balance,Poor Safety Awareness Comments Gait Comments Pt was able to ambulate ~300 ft w/ FWW and NWB of RUE. Initiated caregiver trg w/ pts daughter, who was very receptive and gave pt proper cues for upright posture, staying inside FWW, and slow pace. Pt needs reminders for deep breathing, but has no c/o SOB or fatigue. Pts daughter provided tactile cues on FWW to slow down pts walking pace. Pt has poor safety awareness and needs frequent cueing to slow down and stand upright, but has no LOB this treatment. PT-Balance Assessment Sitting Balance and Reactions Static Sitting Balance Ability Good Dynamic Sitting Balance Ability Fair Standing Balance and Reactions Static Standing Balance Ability Fair Dynamic Standing Balance Ability Poor Device Used FWW M5 PT-IP Objective Assessments Start: 10/27/19 15:19 Freq: NEEDED Status: Active Protocol: Document 10/27/19 14:01 AB (Rec: 10/27/19 15:44 AB [id number]) Orientation Orientation/Cognition Level of Alertness Alert Orientation Name,Place,Situation Language Function Ability Hard of Hearing Safety Awareness Decreased Safety Awareness Gross Range of Motion Lower Extremity ROM Assessment Within Functional Limits Strength Upper Extremity Strength Assessment Right Impaired Lower Extremity Strength Assessment Within Functional Limits Sensation Assessment Sensation Gross Sensation Right UE Impaired Sensation Description Numbness Muscle Tone Comments Muscle Tone Comments does not have full motor control of RUE yet; able to move fingers and hand but unable to flex/extends elbow M6 PT-IP Treatment Start: 10/27/19 15:19 Freq: NEEDED Status: Active Protocol: Document 10/29/19 10:08 KS (Rec: 10/29/19 11:19 KS [id number]) Physical Therapy Treatment Exercises Exercises Elbow Flexion/Extension,Wrist ROM,Hand ROM Education Education Provided Precautions,Weight Bearing Status,Safety Equipment Issued Equipment Type and Company Caregiver training for ambulation w/ FWW and weightbearing status. M7 PT-IP Assessment and Plan Start: 10/27/19 15:19 Freq: NEEDED Status: Active Protocol: Document 10/29/19 10:08 KS (Rec: 10/29/19 11:19 KS [id number]) PT Summary Assessment and Plan Potential Rehabilitation Potential Good Summary Impairments Pain,ROM,Strength,Balance, Coordination,Sensation,Tone, Cognition,Bed Mobility, Transfers,Gait,Activity Tolerance Progress Towards Goals Progressing Toward Goals Assessment Summary Pt has shown improvements w/ balance and ambulation this treatment, but continues to lack safety awareness and needs CGA to Min A for ambulation, as well ass frequent cues for upright posture, FWW management, and slow walking pace. Pts daughter present for caregiver training and was able to successfully guard pt and provide cues during ambulation . Pt would still benefit from 20/04 care because of lack of safety awareness and necessary guarding/cues during mobility . Goals Bed Mobility Goal Standby Assistance Transfer Goal Standby Assistance,Front Wheeled Walker Gait Goal Standby Assistance,Front Wheel Walker Gait Distance 200 Other Goals up/down 6 steps L rail ascending and hurrycane Days to Meet Goals 5 Frequency of Treatment Frequency Of Treatment Twice a Day Treatment Plan Physical Therapy Treatment Plan Bed Mobility Training,Transfer Training,Gait Training, Therapeutic Exercise,Balance Retraining,Post Op Education, Discharge Planning,Hot or Cold Pack,Neuromuscular Re-ed, Coordination Retraining,Manual Therapy Other Recommendations and Next Treatment continued caregiver training, Focus stair climbing , ambulation training, bed mobility Recommendations To Nursing Amount of Assist Needed 1 Person Assist Discharge Recommendations PT Discharge Recommendations SNF Rehab Transportation Needs at Discharge Private Vehicle,Wheelchair/ Cabulance
--- NOTE | 2019-10-29 10:32 | PC.NURSE ---
Addendum entered by Angelica Diamond R.N. 10/29/19 14:26: MS/PAIN - after phys therapy, pt noted to wince with reposition, states he did a work out with PT and agrees to tylenol, given 975mg po now. Addendum entered by Angelica Diamond R.N. 10/29/19 12:03: PAIN - discussed pain mgt pt, states none at all and declines tylenol or narcotic at this time. Original Note: AM NOTE - pt awakened for breakfast, states did not sleep well initially during night, tylenol provided relief and able to sleep later am, states pain 2 on scale 0/10, discussed medications, tylenol, narcotic and at this time, pt prefers to continue with the tylenol, discussed constipation and narcotics, given toi and miralax this am, initially no sling to rue while in bed, placed before mobilizing this am with phys therapy, ice pack to shoulder, shey urena, ra 94%, ambul w/fww with phys therapy this am and then ret to chair.
--- NOTE | 2019-10-29 13:55 | PT.IPTN ---
Current Diagnoses Primary osteoarthritis, right shoulder (10/27/19) Pain in right shoulder (10/27/19) Unspecified rotator cuff tear or rupture of right shoulder, not specified as traumatic (10/27/19) Surgery Performed Operation Date: 10/27/19 07:45 Actual Procedures p Total Shoulder Arthroplasty - Reverse(Right) - Riki Vogel MD Physical Therapy Treatment Note M2 PT-IP Current Condition Start: 10/27/19 15:19 Freq: NEEDED Status: Active Protocol: Document 10/28/19 13:55 AB (Rec: 10/28/19 15:35 AB [id number]) Physical Therapy Current Condition Precautions Brace sling for comfort Other Precautions received clarification from ARNOLDO Rivera this afternoon 2019 . stated that pt has no ROM restrictions and can do AROM and sling is for comfort Weight Bearing Status Weight Bearing Status Non-Weight Bearing Allowed Weight Bearing Amount (enter % NWB RUE or #) (%) M3 PT-IP Subjective Start: 10/27/19 15:19 Freq: NEEDED Status: Active Protocol: Document 10/29/19 13:29 KS (Rec: 10/29/19 14:29 KS [id number]) Subjective Physical Therapy Visit Type Type Treatment Note Visit Start Time 13:29 Visit Stop Time 13:55 Total Visit Minutes 26 Physical Therapy Visit Comments Patient Comments pt agreeable to do PT Therapy Pain Assessment Pain When Pain Assessed During Mobility Pain Present Pain Present Pain Reported Location right shoulder Intensity 4 Scale Used Numeric (1 - 10) Pain Management Techniques Re-positioning M4 PT-IP Mobility and Gait Start: 10/27/19 15:19 Freq: NEEDED Status: Active Protocol: Document 10/29/19 13:29 KS (Rec: 10/29/19 14:29 KS [id number]) PT-Bed Mobility Assessment Sit to Supine Sit to Supine Moderate Assistance,1 Person Assistance Scooting Scooting to Edge of Bed Contact Guard Assistance PT-Transfer Assessment Sit to and From Stand Sit to and from Stand Contact Guard Assistance, Minimal Assistance,1 Person Assistance,Use of Upper Extremities Equipment Transfer Assistive Device Gait Belt,Front Wheeled Walker Transfers Transfer Destination Bed Transfer Technique Pt ambulated using FWW. Transfer Ability Level of Assist Contact Guard Assistance, Minimal Assistance,1 Person Assistance,Use of Upper Extremities Comments Mobility Comments Pt was reclined in chair upon arrival from therapy. O2 monitored prior to initiation of therapy: 94% on RA. Instructed pt in LE strengthening exs including quad sets. glute sets, heel slides, and ankle pumps to promote blood flow, endurance, and balance during ambulation . Then reviewed finger flexion /extension, wrist flexion/ extension, and elbow flexion/ extension. Pt has limited elbow ROM due to pain and inflammation. CGA for scooting to edge of chair, CGA to Min A for sit<>stand w/ FWW and use of L UE. Pt then ambulated and returned to room, CGA for stand<>sit w/ cues for FWW management. O2 assessed again while pt was sitting EOB: 95% on RA. Mod A x1 for pt repositioning in bed. Pt left in bed w/ all needs in reach and SCDs on. Gait Assessment Gait Gait Assistance Required: Contact Guard Assist,Minimum Assistance,1 Person Assist Distance (Feet) 220 Assistive Devices Assistive Device Gait Belt,Front Wheeled Walker Orthotic/Prosthetic Devices or Brace: No Gait Deviations General Gait Pattern Antalgic,Decreased Stride Length,Decreased Feet Clearance,Flexed Trunk Factors Limiting Gait Function Factors Limiting Gait Function Decreased Activity Tolerance, Decreased Strength,Poor Balance,Poor Safety Awareness Comments Gait Comments Pt ambulated ~220 feet w/ FWW and CGA to Min A. Pt demonstrated good carryover from morning treatment and required less cues for FWW management, and slow pace. Min cues for posture. Pt is still slightly impulsive when approaching bed to sit back down and when turning, but remains balanced throughout ambulation. Pt reported slight feelings of SOB after ambulation, however O2 was 95% on RA. PT-Balance Assessment Sitting Balance and Reactions Static Sitting Balance Ability Good Dynamic Sitting Balance Ability Fair Standing Balance and Reactions Static Standing Balance Ability Fair Dynamic Standing Balance Ability Poor Device Used FWW M5 PT-IP Objective Assessments Start: 10/27/19 15:19 Freq: NEEDED Status: Active Protocol: Document 10/27/19 14:01 AB (Rec: 10/27/19 15:44 AB [id number]) Orientation Orientation/Cognition Level of Alertness Alert Orientation Name,Place,Situation Language Function Ability Hard of Hearing Safety Awareness Decreased Safety Awareness Gross Range of Motion Lower Extremity ROM Assessment Within Functional Limits Strength Upper Extremity Strength Assessment Right Impaired Lower Extremity Strength Assessment Within Functional Limits Sensation Assessment Sensation Gross Sensation Right UE Impaired Sensation Description Numbness Muscle Tone Comments Muscle Tone Comments does not have full motor control of RUE yet; able to move fingers and hand but unable to flex/extends elbow M6 PT-IP Treatment Start: 10/27/19 15:19 Freq: NEEDED Status: Active Protocol: Document 10/29/19 13:29 KS (Rec: 10/29/19 14:29 KS [id number]) Physical Therapy Treatment Exercises Exercises Ankle Pumps,Gluteal Sets,Quad Sets,Heel Slides,Elbow Flexion /Extension,Wrist ROM,Hand ROM Education Education Provided Precautions,Weight Bearing Status,Post-Op Packet,Safety M7 PT-IP Assessment and Plan Start: 10/27/19 15:19 Freq: NEEDED Status: Active Protocol: Document 10/29/19 13:29 KS (Rec: 10/29/19 14:29 KS [id number]) PT Summary Assessment and Plan Potential Rehabilitation Potential Good Summary Impairments Pain,ROM,Strength,Balance, Coordination,Sensation,Tone, Cognition,Bed Mobility, Transfers,Gait,Activity Tolerance Progress Towards Goals Progressing Toward Goals Assessment Summary Pt instructed in LE strengthening exs, and reviewed hand/wrist/elbow flexion/extension. Pt reports slight increase in pain w/ elbow flexion/extension. CGA for scooting to edge of chair, CGA to Min A for sit<>stand and ambulation. Pt required less cues that this morning, but still needs CGA to Min A Min and cues for posture, FWW management, slow pace, and breathing while ambulating. Pt is slightly impulsive when turning or approaching bed/ chair w/ FWW and requires Min cues before sitting down. CGA for stand<>sit, Mod A for for sit<>sup and re-positioning in bed d/t pts NWB of RUE. Goals Bed Mobility Goal Standby Assistance Transfer Goal Standby Assistance,Front Wheeled Walker Gait Goal Standby Assistance,Front Wheel Walker Gait Distance 200 Other Goals up/down 6 steps L rail ascending and hurrycane Days to Meet Goals 5 Frequency of Treatment Frequency Of Treatment Twice a Day Treatment Plan Physical Therapy Treatment Plan Bed Mobility Training,Transfer Training,Gait Training, Therapeutic Exercise,Balance Retraining,Post Op Education, Discharge Planning,Hot or Cold Pack,Neuromuscular Re-ed, Coordination Retraining,Manual Therapy Other Recommendations and Next Treatment continued caregiver training, Focus stair climbing , ambulation training, bed mobility Recommendations To Nursing Amount of Assist Needed 1 Person Assist Discharge Recommendations PT Discharge Recommendations SNF Rehab Transportation Needs at Discharge Private Vehicle,Wheelchair/ Cabulance
--- NOTE | 2019-10-29 15:30 | CM.DPC ---
DCP Cont: Confirmed with Dr. Fry this am that patient will be eligible for fpc tomorrow. Plan is for [facility]. Spoke to Cain in admissions at [facility], and confirmed that they can admit patient tomorrow. Went ahead and completed PASSR. P: Plan is for patient to discharge to [facility] tomorrow. Orders are already complete. Adriane Rojas RN/Representative Personal Service
[2019-10-29 16:27] VITALS: BP 122/59; PULSE 96; RESP 18; TEMP 37.4; O2SAT 93
--- NOTE | 2019-10-29 17:22 | PC.NURSE ---
Addendum entered by Micheline Schneider R.N. 10/29/19 20:53: Pt awake and alert in bed watching television. Denies pain to right shoulder. No change in neurovascular status right hand/RUE. Ice to right shoulder in place. Given tylenol to keep pt in comfortable state. ASE CERTIFIED TECHNICIAN reports has toileted pt in bathroom this shift. Original Note: Pt resting quietly in bed awake and alert. Denies pain to right shoulder. Edema increased over 10/28 evening shift to RUE. Ice provided to RUE. Full sensation to right hand/fingers. Pt able to hammer adjuster right hand. Aquacel dressing intact to right shoulder. Breath sounds clear and I.S. use encouraged. Pt able to perform to 1200. Encouraged to call for needs. Dinner tray set up for patient.
[2019-10-29 19:42] VITALS: BP 120/61; PULSE 89; RESP 20; TEMP 36.7; O2SAT 95
[2019-10-29] MEDS: MAGNESIUM HYDROXIDE 30 ML UDC PO (20:23)
[2019-10-29 23:40] VITALS: BP 121/64; PULSE 87; RESP 18; TEMP 37.2; O2SAT 95
[2019-10-30 04:15] VITALS: BP 123/70; PULSE 87; RESP 18; TEMP 37.2; O2SAT 95
[2019-10-30] MEDS: LEVOTHYROXINE 75 MCG TABLET PO (05:47)
[2019-10-30] MEDS: ACETAMINOPHEN 325 MG TABLET 975 MG PO (05:52)
[2019-10-30] MEDS: BISACODYL 10 MG SUPP PR (06:19)
--- NOTE | 2019-10-30 06:46 | PC.NURSE ---
Pt. reported last bowel movement was Thursday, 10 mg. of Dulcolax suppository admin.
[2019-10-30 07:45] VITALS: BP 123/58; PULSE 83; RESP 16; TEMP 37.1; O2SAT 94
[2019-10-30] MEDS: ASPIRIN EC 81 MG TABLET PO (08:13)
[2019-10-30] MEDS: buPROPion SR 150 MG TAB PO (08:13)
[2019-10-30] MEDS: DOCUSATE 100 MG CAPSULE PO (08:13)
[2019-10-30] MEDS: MULTIVITAMIN 1 TABLET 1 TAB PO (08:13)
[2019-10-30] MEDS: polyethylene glycoL 3350 17 GM POWD.PACK PO (08:14)
[2019-10-30] MEDS: ATORVASTATIN 20 MG TABLET 40 MG PO (08:14)
[2019-10-30] MEDS: AMLODIPINE 2.5 MG TABLET PO (08:14)
[2019-10-30] MEDS: SODIUM CHLORIDE 0.9% FLUSH 10 ML IV (10:13)
--- NOTE | 2019-10-30 10:41 | PC.NURSE ---
Addendum entered by Angelica Diamond R.N. 10/30/19 11:46: TSF - pt belongings packed, placed his rue in sling for transport, has his cell phone, tablet, pipe bowl paint trimmer, cane, clothing, tsf to wc and packet info w/narcotic script given to snf staff, tsf to wc and report called to HENRY Vega. Original Note: AM NOTE - pt is alert, states pain managed by earlier tylenol, some edema present at r elbow, supported by pillow without raising r shoulder, wiggles fingers, pink, no numbness or tingling, in and examined, [facility], pt had dulcolax suppos earlier and given prune juice with miralax this am, later after breakfast, assisted up x 1 person, ambul to br and had bm.
--- NOTE | 2019-10-30 10:49 | CM.DPC ---
DCP Cont: Patient has discharge orders. Called Cain in admissions at [facility]. He stated that he would call back with a olive picker time. Went ahead and faxed over medication orders, prescription, PASSR, and discharge summary. Copy of PASSR placed in green folder to be scanned. Cain called back and confirmed olive picker time of 11:00. Let nurse, Angelica know, and Trish, charge, during team rounds. Updated patient on olive picker time. Had him sign updated IMM. P: Patient is to be discharged to [facility] today. They will transport. Updated main white board at nurses station with olive picker time. Adriane Rojas RN/Hospital Nurse Liaison
--- NOTE | 2019-10-30 12:51 | PT-IP ANOTE ---
Unable to see pt as pt d/c @11:00
== END 2019-10-30 11:40 | DRG 483 ==
PROVIDERS: Admitting Provider Orthopaedic Surgery; PCP Family Medicine; Visit Provider Orthopaedic Surgery
PROC: 0RRJ00Z Replacement of Right Shoulder Joint with Reverse Ball and Socket Synthetic Substitute, Open Approach (ICD-10-PCS; CPT 23472; principal; 2019-10-27 07:45)
DX: M19.011 Primary osteoarthritis, right shoulder (principal); M75.101 Unspecified rotator cuff tear or rupture of right shoulder, not specified as traumatic; I10 Essential (primary) hypertension; F32.9 Major depressive disorder, single episode, unspecified; G47.33 Obstructive sleep apnea (adult) (pediatric); R11.0 Nausea; Z86.73 Personal history of transient ischemic attack (TIA), and cerebral infarction without residual deficits
CPT/HCPCS: 36415; 64450; 73030; 85027; 94660; 94760; 94762; 97110; 97116; 97162; 97530; 97535; C1776; J0330; J2250; J2405; J2704; J3010

== ENCOUNTER 2019-11-01 06:53 | Emergency (ER) | payer MEDICARE, OTHER, SELFPAY ==
[2019-10-27 06:34] VITALS: BMI 21.8
[2019-11-01 06:53] VITALS: BP 189/86; PULSE 103; RESP 16; TEMP 36.8; O2SAT 98
--- NOTE | 2019-11-01 07:08 | ED.EXTPRO ---
HPI - Extremity Problem General Chief complaint: Extremity Problem,Nontraumatic Stated complaint: Shoulder swelling Time Seen by Provider: 11/01/19 07:01 Source: patient and EMS Mode of arrival: EMS History of Present Illness HPI Narrative: Who presents with right arm swelling is a. 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 He says last evening he noticed that it was his arm was swollen and pink and was afraid of infection. He has not had any fever chills no numbness tingling or weakness. He was sent here for evaluation. MD Complaint: extremity swelling Location: right and upper extremity Related Data Home Medications Medication Instructions Recorded Confirmed atorvastatin 40 mg PO DAILY #0 05/11/19 10/27/19 cranberry 1 cap PO DAILY 05/11/19 10/27/19 amlodipine 2.5 mg PO DAILY 10/05/19 10/27/19 aspirin 81 mg PO DAILY 10/05/19 10/27/19 bupropion HCl 150 mg PO BID 10/14/19 10/27/19 fluorouracil 1 applic TOPICAL DAILY 10/14/19 10/14/19 levothyroxine 75 mcg PO DAILY 10/14/19 10/27/19 multivitamin 1 tab PO DAILY 10/14/19 10/27/19 triamcinolone acetonide 1 applic TOPICAL DAILY 10/14/19 10/26/19 Previous Rx's Medication Instructions Recorded hydrocodone-acetaminophen See Rx Instructions .ROUTE 10/29/19 .COMPLEX PRN #30 tab Allergies Allergy/AdvReac Type Severity Reaction Status Date / Time adhesive Allergy Mild Rash Verified 10/27/19 06:47 Review of Systems Review of Systems Narrative: GENERAL: Denies chills, fatigue, malaise, fever, sweats, travel HEENT: Denies sinus pain, ear pain, sore throat, difficulty swallowing, neck pain RESPIRATORY: Denies dyspnea, cough, wheezing, hemoptysis, sputum. CARDIOVASCULAR: Denies chest pain, palpitations, orthopnea, edema GASTROINTESTINAL: Denies nausea, vomiting, abdominal pain, diarrhea, constipation, melena. : Denies dysuria, frequency, incontinence, hematuria, urinary retention, flank pain. MUSCULOSKELETAL: See HPI SKIN: No rash, no erythema, no pruritus NEUROLOGIC: Denies weakness, dizziness, headache, numbness, change in speech, confusion PSYCHIATRIC: No concerning psychosocial issues. 12 point review of systems is negative except for those stated above and HPI Patient History Medical History Acute kidney injury (Acute 05/11/19) Anxiety (Acute) Central sleep apnea (Acute) Depression (Acute) Former smoker (Acute) HLD (hyperlipidemia) (Acute) HTN (hypertension) (Chronic) Hypothyroidism (Chronic) Normocytic anemia (Acute) Patient denies significant medical history (Acute) TIA (transient ischemic attack) (Acute ~04/2019) Surgical History H/O shoulder surgery (Resolved) History of cholecystectomy (Acute ~2004) History of hernia repair (Acute) Social History household members: none Smoking Status: Former smoker alcohol intake: former Smoking Status: Former smoker alcohol intake frequency: 0-2 drinks per day Substance Use Type: does not use Exam Initial Vital Signs Initial Vital Signs: Vital Signs Temperature 98.3 F 11/01/19 06:53 Pulse Rate 103 H 11/01/19 06:53 Respiratory Rate 16 11/01/19 06:53 Blood Pressure 189/86 H 11/01/19 06:53 Pulse Oximetry 98 11/01/19 06:53 GENERAL: Alert well-appearing elderly HEENT: Head atraumatic,EOMI, pupils reactive, CARDIOVASCULAR: Regular rate and rhythm without murmurs, rubs or gallops. RESPIRATORY: Breath sounds equal bilaterally, no wheezes rales or rhonchi. ABDOMEN: Soft, nontender. Normoactive bowel sounds all 4 quadrants. No guarding or rebound. EXTREMITIES: Normal range of motion, no clubbing or edema. Neurovascularly intact. Is significant postoperative swelling noted of right arm. He does have some postoperative bruising as well but no significant erythema of bandage over incision site is in place without being saturated distal radial pulse intact moving fingers NEUROLOGICAL: Alert and oriented x4.Normal gait and speech. Cranial nerves II through XII grossly intact. SKIN: Warm, dry, no laceration, no petechiae, no rashes or lesions. Course Orders Ordered: ED Orders 11/01/19 07:15 US periph venous up extrem rt Stat Vital Signs Vital signs: Vital Signs - 8 hr 11/01/19 06:53 11/01/19 08:30 Temperature 98.3 F Pulse Rate 103 H 89 Respiratory Rate 16 16 Blood Pressure 189/86 H Blood Pressure [Left Arm] 160/74 H Pulse Oximetry 98 97 MDM - Extremity (Nontraumatic) Imaging Data US - DVT: Radiologist's Impression: PROCEDURE: US PERIPH VENOUS UP EXTREM RT INDICATIONS: POST OP EDEMA TECHNIQUE: Real-time imaging, as well as color and pulse Doppler interrogation, was performed of the right upper extremity deep veins from the inferior neck to the antecubital fossa. COMPARISON: None. FINDINGS: The internal jugular vein, visualized portions of the subclavian vein, axillary, and brachial veins are free of intraluminal thrombus. Where physically possible, the veins are normally compressible. Color and pulse Doppler demonstrate normal intraluminal flow, with expected phasicity and pulsatility. Additional scanning of the cephalic and basilic veins of the superficial system demonstrate normal compressibility, without thrombus. IMPRESSION: No DVT found. Dictated by: Forrest Henson M.D. on 11/01/2019 at 8:16 Approved by: Forrest Henson M.D. on 11/01/2019 at 8:17 [facility] Narrative Medical decision making narrative: The patient's arm is swollen but it appears to be postoperative swelling no obvious infection he is afebrile. Ultrasound did not show any obvious blood clot. At this time I think this is normal healing process. Discharge Plan Departure Patient Disposition: Home Clinical Impression: Feared complaint without diagnosis Discharge Date/Time: 11/01/19 08:48 Instructions: DI for Postoperative Pain Activity Restrictions/Additional Instructions: *You have been diagnosed with postoperative swelling *What to do: At this time there is no sign of infection or blood clot this all appears to be normal healing process *Continue to take medications as directed *Follow up with your primary care provider in 2-3 days *Return to ER if you should have this fever increasing redness weakness numbness or to or any new, worsening or concerning symptoms Prescriptions: No Action atorvastatin 40 mg Tablet 40 mg PO DAILY Qty: 0 RF: 0 cranberry 1 cap PO DAILY RF: 0 amlodipine 2.5 mg Tablet 2.5 mg PO DAILY RF: 0 aspirin 81 mg Tablet,Delayed Release (Dr/Ec) 81 mg PO DAILY RF: 0 multivitamin Tablet 1 tab PO DAILY RF: 0 bupropion HCl 150 mg Tablet Sustained-Release 12 Hr 150 mg PO BID RF: 0 triamcinolone acetonide 0.1 % Cream 1 applic TOPICAL DAILY RF: 0 levothyroxine 75 mcg Tablet 75 mcg PO DAILY RF: 0 fluorouracil 0.5 % Cream 1 applic TOPICAL DAILY RF: 0 hydrocodone-acetaminophen 5-325 mg Tablet See Rx Instructions .ROUTE .COMPLEX PRN (Reason: Pain, Moderate (4-6)) Qty: 30 RF: 0 Referrals: Antonino Sandhu MD [Primary Care Provider] - Riki Vogel MD [Physician] -
--- NOTE | 2019-11-01 07:15 | DI.US.S_ITS ---
PROCEDURE: US PERIPH VENOUS UP EXTREM RT INDICATIONS: POST OP EDEMA TECHNIQUE: Real-time imaging, as well as color and pulse Doppler interrogation, was performed of the right upper extremity deep veins from the inferior neck to the antecubital fossa. COMPARISON: None. FINDINGS: The internal jugular vein, visualized portions of the subclavian vein, axillary, and brachial veins are free of intraluminal thrombus. Where physically possible, the veins are normally compressible. Color and pulse Doppler demonstrate normal intraluminal flow, with expected phasicity and pulsatility. Additional scanning of the cephalic and basilic veins of the superficial system demonstrate normal compressibility, without thrombus. IMPRESSION: No DVT found. Dictated by: Forrest Henson M.D. on 11/01/2019 at 8:16 Approved by: Forrest Henson M.D. on 11/01/2019 at 8:17
[2019-11-01 08:30] VITALS: BP 160/74; PULSE 89; RESP 16; O2SAT 97
--- NOTE | 2019-11-01 08:36 | PC.NURSE ---
pt arrival via ambulance at 7am, right shoulder dressing/ arm swelling/ md to see. pt alert. nad. cooperative
== END 2019-11-01 08:48 | disposition home or self-care (01) ==
PROVIDERS: Emergency Provider Emergency Medicine; PCP Family Medicine
DX: Z98.890 Other specified postprocedural states (principal); R60.9 Edema, unspecified
CPT/HCPCS: 93971; 99283

== ENCOUNTER 2020-06-10 10:26 | Emergency (ER) | payer MEDICARE, OTHER, SELFPAY ==
[2019-10-27 06:34] VITALS: BMI 21.8
[2020-06-10 10:55] VITALS: BP 188/79; PULSE 79; RESP 18; TEMP 36.6; O2SAT 98; BMI 23.3
--- NOTE | 2020-06-10 11:06 | DI.RAD.S_ITS ---
PROCEDURE: XR SHOULDER RT MIN 2V INDICATIONS: fall. shoulder surgery in 2019 TECHNIQUE: 3 views of the shoulder were acquired. COMPARISON: [facility], CR, XR SHOULDER 2+ VIEWS RIGHT, 12/06/2019, 11:25. [facility], CR, XR SHOULDER RT MIN 2V, 10/27/2019, 10:37. FINDINGS: Bones: Total right shoulder arthroplasty again noted with no with acute fracture or dislocation. Developing lucency along the medial aspect of the proximal humeral shaft component. No fractures or dislocations. No suspicious bony lesions. Visualized ribs appear intact. Soft tissues: No suspicious soft tissue calcifications. 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 IMPRESSION: 1. Remote total right shoulder arthroplasty. 2. No evidence acute fracture or dislocation. 3. Findings suggest possible mechanical loosening. 4. 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 Dictated by: Cameron Verduzco M.D. on 06/10/2020 at 10:39 Approved by: Cameron Verduzco M.D. on 06/10/2020 at 10:49
--- NOTE | 2020-06-10 11:23 | DI.CT.S_ITS ---
PROCEDURE: CT HEAD/BRAIN WO CON INDICATIONS: glf, hit head TECHNIQUE: Noncontrast 4.5 mm thick angled axial sections acquired from the foramen magnum to the vertex, with coronal and sagittal reformats. For radiation dose reduction, the following was used: automated exposure control, adjustment of mA and/or kV according to patient size. COMPARISON: [facility], CT, CT HEAD/BRAIN WO CON, 05/11/2019, 14:06. FINDINGS: Image quality: Excellent. CSF spaces: Basal cisterns are patent. No extra-axial fluid collections. The ventricles are symmetric in size and shape. Brain: No intracranial bleeds or masses. There is cerebral volume loss for age, with resultant ventricular and sulcal prominence. There are mild periventricular and deep white matter chronic small vessel ischemic changes. There is intracranial internal carotid artery atherosclerosis. Skull and face: Calvarium and visualized facial bones appear intact, without suspicious lesions. Sinuses: Visualized sinuses and mastoids are clear. IMPRESSION: 1. Age appropriate volume loss and small vessel ischemic change. 2. No evidence acute stroke, hemorrhage, or mass. Dictated by: Cameron Verduzco M.D. on 06/10/2020 at 11:03 Approved by: Cameron Verduzco M.D. on 06/10/2020 at 11:07
--- NOTE | 2020-06-10 11:25 | ED.FALL ---
HPI - Fall <Allyssa Frederick [employer] - Last Filed: 06/10/20 17:05> General Chief Complaint: Extremity Injury, Upper Stated Complaint: Extreme pain in right shoulder after fall 06/09 Time Seen by Provider: 06/10/20 10:31 Source: patient and family Mode of arrival: Family Vehicle Limitations: no limitations History of Present Illness HPI Narrative: The patient is a delightful 85-year-old male who presents with a chief complaint of right shoulder pain after a fall yesterday morning. He was walking to his daughter's to get her dog to go for a walk, he went over her log and tripped. He states he landed on his right shoulder. 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 He states he had his head has abrasion on his forehead. He is not on his last tetanus was, daughter states he needs a new 1. He denies any neck or back pain. Overall he states he feels okay, but his shoulders increasingly painful when he tries to move it. He presents in a sling from his previous shoulder surgery. Patient denies any blood thinners, but takes an aspirin a day. Given that the patient's over 65 years old with a ground level fall and a suspected injury, modified trauma activated upon my evaluation. Related Data Home Medications Medication Instructions Recorded Confirmed atorvastatin 40 mg PO DAILY #0 05/11/19 10/27/19 cranberry 1 cap PO DAILY 05/11/19 10/27/19 amlodipine 2.5 mg PO DAILY 10/05/19 10/27/19 aspirin 81 mg PO DAILY 10/05/19 10/27/19 bupropion HCl 150 mg PO BID 10/14/19 10/27/19 fluorouracil 1 applic TOPICAL DAILY 10/14/19 10/14/19 levothyroxine 75 mcg PO DAILY 10/14/19 10/27/19 multivitamin 1 tab PO DAILY 10/14/19 10/27/19 triamcinolone acetonide 1 applic TOPICAL DAILY 10/14/19 10/26/19 Previous Rx's Medication Instructions Recorded hydrocodone-acetaminophen See Rx Instructions .ROUTE 10/29/19 .COMPLEX PRN #30 tab lidocaine 1 patch TOP DAILY PRN #15 each 06/10/20 Allergies Allergy/AdvReac Type Severity Reaction Status Date / Time adhesive Allergy Mild Rash Verified 06/10/20 10:58 Review of Systems <ERIC Bose - Last Filed: 06/10/20 17:05> Constitutional Constitutional: Denies chills, Denies fever(s), Denies lethargy and Denies weakness Eyes Eyes: Denies change in vision, Denies eye discharge, Denies irritation and Denies loss of vision ENT Ears, Nose, Mouth, and Throat: Denies change in voice, Denies neck pain and Denies sore throat Cardiovascular Cardiovascular: Denies dyspnea and Denies dyspnea on exertion Respiratory Respiratory: Denies cough, Denies dyspnea, Denies dyspnea on exertion and Denies wheezing Musculoskeletal Musculoskeletal: Reports as per HPI and Denies neck pain Integumentary/Breasts Skin/Breast: Reports as per HPI Neurologic Neurologic: Denies loss of vision and Denies weakness Allergic/Immunologic Allergic/Immunologic: Denies wheezing Patient History <ERIC Bose - Last Filed: 06/10/20 17:05> Medical History (Updated 06/10/20 @ 12:35 by ERIC Bose) Acute kidney injury (Acute 05/11/19) Anxiety (Acute) Central sleep apnea (Acute) Depression (Acute) Former smoker (Acute) HLD (hyperlipidemia) (Acute) HTN (hypertension) (Chronic) Hypothyroidism (Chronic) Normocytic anemia (Acute) Patient denies significant medical history (Acute) TIA (transient ischemic attack) (Acute ~04/2019) Surgical History H/O shoulder surgery (Resolved) History of cholecystectomy (Acute ~2004) History of hernia repair (Acute) Social History household members: none Smoking Status: Former smoker alcohol intake: former Smoking Status: Former smoker alcohol intake frequency: 0-2 drinks per day Substance Use Type: does not use Exam <ERIC Bose - Last Filed: 06/10/20 17:05> Initial Vital Signs Initial Vital Signs: Vital Signs Temperature 97.8 F 06/10/20 10:55 Pulse Rate 79 06/10/20 10:55 Respiratory Rate 18 06/10/20 10:55 Blood Pressure 188/79 H 09/13/20 10:55 Pulse Oximetry 98 06/10/20 10:55 Const General: cooperative and well developed Nutritional Appearance: well nourished [facility] Head: normocephalic and scalp lesion (abrasion right scalp ) Ears: external ears normal Nose: external nose normal and No nasal discharge Face and sinus: sinuses nontender, face symmetric, no sinus tenderness and No dry mucous membranes Mouth: oral mucosae normal and moist mucous membranes Teeth and gingiva: dentition normal Throat: tonsils normal and uvula midline Eyes General: appearance normal, both eyes and all related structures Eyelids: eyelids normal Conjunctivae: conjunctivae normal Sclera: sclerae normal Pupils: PERRL EOM: EOM intact bilaterally Neck Neck: normal visual inspection, trachea midline, No lymphadenopathy, No midline deformity and No JVD Lymphatic: No lymphedema Resp Effort & Inspection: normal respiratory effort, able to speak in complete sentences and no use of accessory muscles Auscultation: clear to auscultation bilaterally, breath sounds present and no bronchial breath sounds Cardio Rate: regular rate Rhythm: regular rhythm GI Palpation: soft Auscultation: normal bowel sounds Back/Spine/Pelvis Back: No CVA tenderness Cervical Spine: cervical ROM normal, No cervical muscular tenderness and No pain with cervical ROM Thoracic/Lumbar Spine: thoracic and lumbar spine normal to inspection and No lumbar spinal tenderness Skin Trauma: abrasion (right forehead) Neuro General: patient alert, patient oriented x3, gait normal and no focal motor deficits Speech: speech normal Extrem General: normal to inspection Right upper extremity: normal to inspection, normal capillary refill (Positive pedal pulses right his) and hand (Able to flex and extend her right hand and wrist. Good strength right hand); ROM limited (Decreased range of motion all mora) <Royal Hanson DO - Last Filed: 06/10/20 17:59> Initial Vital Signs Initial Vital Signs: Vital Signs Temperature 97.8 F 06/10/20 10:55 Pulse Rate 79 06/10/20 10:55 Respiratory Rate 18 06/10/20 10:55 Blood Pressure 188/79 H 06/10/20 10:55 Pulse Oximetry 98 06/10/20 10:55 Scores <ERIC Bose - Last Filed: 06/10/20 17:05> GCS [place] coma scale eye opening: Spontaneous [place] coma scale verbal response: Orientated [place] coma scale motor response: Obey commands [place] coma scale total score: 15 Nexus Score for C-Spine Focal Neurologic deficit present: No Midline spinal tenderness present: No Altered level of conciousness present: No Intoxication present: No Distracting Injury Present: No Nexus Criteria for C-spine: 0 Course <SUKHDEV Bose-VARSHA - Last Filed: 06/10/20 17:05> Orders Ordered: ED Orders 06/10/20 11:06 XR shoulder RT min 2V Stat 06/10/20 11:23 CT head/brain wo con Stat Discontinued Medications Acetaminophen (Tylenol) 650 mg PO NOW ONE Stop: 06/10/20 12:30 Last Admin: 06/10/20 12:51 Dose: 650 mg Documented by: TAISHA Diphtheria/Tetanus/Acell Pertussis (Adacel) 0.5 ml IM .ONCE ONE Stop: 06/10/20 11:24 Last Admin: 06/10/20 11:49 Dose: 0.5 ml Documented by: TAISHA Lidocaine (Lidoderm) 1 each TOP NOW ONE Stop: 06/10/20 12:30 Last Admin: 06/10/20 12:51 Dose: 1 each Documented by: TAISHA Vital Signs Vital signs: Vital Signs - 8 hr 06/10/20 10:55 06/10/20 13:06 Temperature 97.8 F Pulse Rate 79 87 Respiratory Rate 18 12 Blood Pressure 188/79 H 127/60 Pulse Oximetry 98 97 <Royal Hanson DO - Last Filed: 06/10/20 17:59> Orders Ordered: ED Orders 06/10/20 11:06 XR shoulder RT min 2V Stat 06/10/20 11:23 CT head/brain wo con Stat Discontinued Medications Acetaminophen (Tylenol) 650 mg PO NOW ONE Stop: 06/10/20 12:30 Last Admin: 06/10/20 12:51 Dose: 650 mg Documented by: TAISHA Diphtheria/Tetanus/Acell Pertussis (Adacel) 0.5 ml IM .ONCE ONE Stop: 06/10/20 11:24 Last Admin: 06/10/20 11:49 Dose: 0.5 ml Documented by: TAISHA Lidocaine (Lidoderm) 1 each TOP NOW ONE Stop: 06/10/20 12:30 Last Admin: 06/10/20 12:51 Dose: 1 each Documented by: TAISHA Vital Signs Vital signs: Vital Signs - 8 hr 06/10/20 10:55 06/10/20 13:06 Temperature 97.8 F Pulse Rate 79 87 Respiratory Rate 18 12 Blood Pressure 188/79 H 127/60 Pulse Oximetry 98 97 MDM - Fall <ERIC Bose - Last Filed: 06/10/20 17:05> Imaging Data Extremity x-ray #1: Radiologist's Impression: [address] [place] [id number] XRay Report Signed Patient: Talib DsouzaMR#: [id number] : 5Acct:[id number] Age/Sex: 85 / MDate of Service: 06/10/20 Loc: ED Accession Number: [id number] Procedure: XR shoulder RT min 2V Ordering Provider: Allyssa Frederick PROCEDURE: XR SHOULDER RT MIN 2V INDICATIONS: fall. shoulder surgery in 2019 TECHNIQUE: 3 views of the shoulder were acquired. COMPARISON: [facility], CR, XR SHOULDER 2+ VIEWS RIGHT, 12/06/2019, 11:25. [facility], CR, XR SHOULDER RT MIN 2V, 10/27/2019, 10:37. FINDINGS: Bones: Total right shoulder arthroplasty again noted with no with acute fracture or dislocation. Developing lucency along the medial aspect of the proximal humeral shaft component. No fractures or dislocations. No suspicious bony lesions. Visualized ribs appear intact. Soft tissues: No suspicious soft tissue calcifications. 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 IMPRESSION: 1. Remote total right shoulder arthroplasty. 2. No evidence acute fracture or dislocation. 3. Findings suggest possible mechanical loosening. 4. 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 Dictated by: Cameron Verduzco M.D. on 06/10/2020 at 10:39 Approved by: Cameron Verduzco M.D. on 06/10/2020 at 10:49 CT scan - head: Radiologist's Impression: [address] [place] [id number] Scan Report Signed Patient: Talib DsouzaMR#: [id number] : 5Acct:[id number] Age/Sex: 85 / MDate of Service: 06/10/20 Loc: ED Accession Number: [id number] Procedure: CT head/brain wo con Ordering Provider: Allyssa Frederick PROCEDURE: CT HEAD/BRAIN WO CON INDICATIONS: glf, hit head TECHNIQUE: Noncontrast 4.5 mm thick angled axial sections acquired from the foramen magnum to the vertex, with coronal and sagittal reformats. For radiation dose reduction, the following was used: automated exposure control, adjustment of mA and/or kV according to patient size. COMPARISON: [facility], CT, CT HEAD/BRAIN WO CON, 05/11/2019, 14:06. FINDINGS: Image quality: Excellent. CSF spaces: Basal cisterns are patent. No extra-axial fluid collections. The ventricles are symmetric in size and shape. Brain: No intracranial bleeds or masses. There is cerebral volume loss for age, with resultant ventricular and sulcal prominence. There are mild periventricular and deep white matter chronic small vessel ischemic changes. There is intracranial internal carotid artery atherosclerosis. Skull and face: Calvarium and visualized facial bones appear intact, without suspicious lesions. Sinuses: Visualized sinuses and mastoids are clear. IMPRESSION: 1. Age appropriate volume loss and small vessel ischemic change. 2. No evidence acute stroke, hemorrhage, or mass. Dictated by: Cameron Verduzco M.D. on 06/10/2020 at 11:03 Approved by: Cameron Verduzco M.D. on 06/10/2020 at 11:07 [facility] Narrative Medical decision making narrative: The patient is an 85-year-old male who presents after a ground level fall yesterday. Given his age over 65 with suspected injury, modified trauma was activated upon my evaluation. Patient had x-rays of his right shoulder, which show no acute findings. Given that he hit his head, is over the age of 60 we did get a head CT he had no C-spine tenderness was able to clear C-spine by nexus criteria. He does have an abrasion on his forehead, daughter states records show that he needs new tightness, so tetanus was given. The patient is alert, oriented and very pleasant throughout his stay in the emergency department. I discussed at length the possibility of an occult fracture, the x-ray does not rule out soft tissue injury, the importance of following up with primary care provider in the next few days. Discussed going back to the ER for any acute concerns. Discussed the possibility of hardware loosening given x-ray, encouraged follow-up with his orthopedic surgeon. Patient and daughter have no questions or concerns upon discharge and states understanding return precautions as well as follow up care. Discharge Plan Departure Patient Disposition: Home Clinical Impression: Fall from ground level, Abrasion Acute shoulder pain Qualifiers: Laterality: right Qualified Code(s): M25.511 - Pain in right shoulder Discharge Date/Time: 06/10/20 13:07 Instructions: How To Perform RICE (Rest, Ice, Compress, Elevate), DI for Abrasion, DI for Shoulder Pain Activity Restrictions/Additional Instructions: Thank you for trusting us with your care today. I am sorry that you had a fall and wish you a speedy recovery. As discussed, your shoulder x-ray shows no acute fractures. There's concern about possible hardware loosening, so please follow-up with your surgeon. As discussed there's always the possibility of occult fracture which is not show up on initial x-ray. X-rays do not rule out soft tissue injury such as muscle or tendon. Please follow-up with your primary care provider the next few days. As discussed, please come back to emergency department for any acute concerns. Please monitor your abrasion for signs and symptoms of infection. Please come back to the ER for any acute concerns Prescriptions: New lidocaine 5 % adhesive patch,medicated 1 patch TOP DAILY PRN (Reason: pain) Qty: 15 RF: 0 No Action atorvastatin 40 mg Tablet 40 mg PO DAILY Qty: 0 RF: 0 cranberry 1 cap PO DAILY RF: 0 amlodipine 2.5 mg Tablet 2.5 mg PO DAILY RF: 0 aspirin 81 mg Tablet,Delayed Release (Dr/Ec) 81 mg PO DAILY RF: 0 multivitamin Tablet 1 tab PO DAILY RF: 0 bupropion HCl 150 mg Tablet Sustained-Release 12 Hr 150 mg PO BID RF: 0 triamcinolone acetonide 0.1 % Cream 1 applic TOPICAL DAILY RF: 0 levothyroxine 75 mcg Tablet 75 mcg PO DAILY RF: 0 fluorouracil 0.5 % Cream 1 applic TOPICAL DAILY RF: 0 hydrocodone-acetaminophen 5-325 mg Tablet See Rx Instructions .ROUTE .COMPLEX PRN (Reason: Pain, Moderate (4-6)) Qty: 30 RF: 0 Referrals: Antonino Sandhu MD [Primary Care Provider] - <Royal Hanson DO - Last Filed: 06/10/20 17:59> Cosign ED Attending Cosignature Attestation: I was immediately available in the department for consultation. This documentation has been reviewed and I agree with assessment and plan. Supervised by Royal Hanson DO
[2020-06-10] MEDS: TET,DIPH,PERTUSS(ACELL),VAC/PF 0.5 ML SYRINGE IM (11:49)
[2020-06-10] MEDS: ACETAMINOPHEN 325 MG TABLET 650 MG PO (12:51)
[2020-06-10] MEDS: LIDOCAINE PATCH 1 EACH ADH..PATCH TOP (12:51)
[2020-06-10 13:06] VITALS: BP 127/60; PULSE 87; RESP 12; O2SAT 97
== END 2020-06-10 13:07 | disposition home or self-care (01) ==
PROVIDERS: Emergency Provider Nurse Practitioner Family; PCP Family Medicine
DX: M25.511 Pain in right shoulder (principal); S00.81XA Abrasion of other part of head, initial encounter; S09.90XA Unspecified injury of head, initial encounter; W19.XXXA Unspecified fall, initial encounter; Z23 Encounter for immunization
CPT/HCPCS: 70450; 73030; 90471; 99283; 99284; 90715

== ENCOUNTER → 2021-01-24 10:38 | Outpatient (CLI) | payer MEDICARE, OTHER, SELFPAY ==
[2019-10-27 06:34] VITALS: BMI 21.8
[2021-01-24 19:59] LABS: Add Manual Diff / Slide Review NO; Basophils Absolute Auto 100 /uL (0-100); Basophils Percent Auto 1.1 % (0-2); Eosinophils Absolute Auto 500 /uL (0-450); Eosinophils Percent Auto 7.1 % (2-4); Hemoglobin 11.4 g/dL (13.5-17.5); Lymphocytes Absolute Auto 1300 /uL (1100-4500); Lymphocytes Percent Auto 16.6 % (25-40); Mean Corpuscular HGB Conc 32.5 % (30-36); Mean Corpuscular Hemoglobin 30.3 PG (26-34); Mean Corpuscular Volume 93.5 fL (80-100); Monocytes Absolute Auto 600 /uL (0-900); Monocytes Percent Auto 8.2 % (3-14); Neutrophils Absolute Auto 5100 /uL (1500-7000); Platelet Count 193 X10^3/uL (150-400); Red Blood Cell Count 3.75 X10^6/uL (4.5-5.9); Red Cell Distribution Width 14.2 % (11.6-14.8); White Blood Cell Count 7.7 X10^3/uL (4.5-11.0)
[2021-01-24 20:11] LABS: Alanine Aminotransferase 33 IU/L (<50); Albumin 3.8 g/dL (3.5-5.0); Albumin Globulin Ratio 1.1 (1.0-2.8); Alkaline Phosphatase 100 U/L (38-126); Aspartate Aminotransferase 90 IU/L (17-59); Bilirubin Total 0.4 mg/dL (0.2-1.3); Blood Urea Nitrogen 35 mg/dL (9-20); Calcium 9.4 mg/dL (8.4-10.2); Carbon Dioxide 22 mmol/L (22-32); Chloride 108 mmol/L (98-107); Cholesterol 171 mg/dL (140-199); Estimated Glomerular Filt Rate 33.1 mL/min (>60); Globulin 3.4 g/dL (1.7-4.1); Glucose 92 mg/dL (80-110); HDL Cholesterol 37 mg/dL (40-60); HEMOLYSIS < 15 (0-50); LDL Cholesterol Calculated 122 mg/dL (<100); Potassium 4.6 mmol/L (3.4-5.1); Sodium 138 mmol/L (137-145); Total Protein 7.2 g/dL (6.3-8.2); Triglycerides 61 mg/dL (35-150); Uric Acid 9.9 mg/dL (3.5-8.5)
[2021-01-24 20:35] LABS: Thyroid Stimulating Hormone 3.27 uIU/mL (0.47-4.68)
[2021-01-24 21:17] LABS: Folate 9.6 ng/mL (2.76-20.0); Vitamin B12 995 pg/mL (239-931)
== END ==
PROVIDERS: PCP Family Medicine; Referring Provider Physician Assistant; Visit Provider Physician Assistant
DX: D64.9 Anemia, unspecified (principal); G45.8 Other transient cerebral ischemic attacks and related syndromes; I10 Essential (primary) hypertension; E03.9 Hypothyroidism, unspecified; E78.5 Hyperlipidemia, unspecified; M10.371 Gout due to renal impairment, right ankle and foot; N18.9 Chronic kidney disease, unspecified; R29.6 Repeated falls
CPT/HCPCS: 80053; 80061; 82607; 82746; 84443; 84550; 85025

== ENCOUNTER 2021-05-20 19:35 | Observation (INO) | payer MEDICARE, OTHER, SELFPAY ==
[2019-10-27 06:34] VITALS: BMI 21.8
[2021-05-20] VITALS (7 sets, daily range): BP systolic 126–154; BP diastolic 60–73; PULSE 73–87; RESP 13–25; TEMP 36.4; O2SAT 96–100
--- NOTE | 2021-05-20 21:45 | ED.NEUROSD ---
HPI - Neuro Symptoms/Deficit General Chief Complaint: Fall Stated Complaint: FALL LOW BLOOD PRESSURE Time Seen by Provider: 05/20/21 20:58 Source: patient and family Mode of arrival: Wheelchair History of Present Illness HPI Narrative: Patient here with daughter. 2:40 p.m. the last known well. Out walking with daughter today in neighborhood. Had sudden onset he thinks weakness in his legs. No syncope. Lower to the ground without any injury. Daughter noticed new left lip facial droop. Otherwise limbs back to baseline at this time. 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 Is on baby aspirin. No slurred speech. Patient denies any chest pain palpitations dizziness prior to event. On Anticoagulants: No Related Data Home Medications Medication Instructions Recorded Confirmed atorvastatin 40 mg tablet 40 mg PO DAILY #0 05/11/19 01/15/21 cranberry 1 cap PO DAILY 05/11/19 01/15/21 amlodipine 2.5 mg tablet 2.5 mg PO DAILY 10/05/19 01/15/21 aspirin 81 mg tablet,delayed 81 mg PO DAILY 10/05/19 01/15/21 release bupropion HCl 150 mg tablet,12 hr 150 mg PO BID 10/14/19 01/15/21 sustained-release fluorouracil 0.5 % topical cream 1 applic TOPICAL DAILY 10/14/19 01/15/21 levothyroxine 75 mcg tablet 75 mcg PO DAILY 10/14/19 01/15/21 multivitamin 1 tab PO DAILY 10/14/19 01/15/21 triamcinolone acetonide 0.1 % 1 applic TOPICAL DAILY 10/14/19 01/15/21 topical cream acetaminophen [Tylenol] 250 mg PO 01/15/21 01/15/21 Previous Rx's Medication Instructions Recorded lidocaine 5 % topical patch 1 patch TOP DAILY PRN #15 each 06/10/20 Allergies Allergy/AdvReac Type Severity Reaction Status Date / Time adhesive Allergy Mild Rash Verified 05/20/21 19:46 hay fever Allergy Mild Uncoded 05/20/21 19:46 Review of Systems Review of Systems Narrative: GENERAL: Denies chills, fatigue, malaise, fever, sweats. HEENT: Denies sinus pain, ear pain, sore throat RESPIRATORY: Denies dyspnea, cough CARDIOVASCULAR: Denies chest pain, palpitations GASTROINTESTINAL: Denies nausea, vomiting, abdominal pain : Denies dysuria, frequency, hematuria MUSCULOSKELETAL: denies muscle or bony pain SKIN: Denies rash, skin lesions NEUROLOGIC: Complains lip droop leg weakness ROS Unobtainable: All systems reviewed & are unremarkable except as noted in HPI and below Hematologic/Lymphatic On Anticoagulants: No Patient History Medical History Acute kidney injury (05/11/19) Anxiety Central sleep apnea Depression Former smoker HLD (hyperlipidemia) HTN (hypertension) Hypothyroidism Normocytic anemia Patient denies significant medical history TIA (transient ischemic attack) (~04/2019) Surgical History H/O shoulder surgery History of cholecystectomy (~2004) History of hernia repair Social History household members: none Smoking Status: Former smoker alcohol intake: former Smoking Status: Former smoker alcohol intake frequency: 0-2 drinks per day Substance Use Type: does not use Exam Narrative Exam Narrative: GENERAL: in no distress, not toxic not dyspneic HEAD: Normocephalic. EYES: Pupils equal round No scleral icterus. No injection no discharge ENT: Mucous membranes moist. NECK: Trachea midline. CARDIOVASCULAR: Regular rate and rhythm without murmurs RESPIRATORY: Clear to auscultation. Breath sounds equal bilaterally. No wheezes, rales, or rhonchi. GASTROINTESTINAL: Abdomen soft, non-tender EXTREMITIES: No gross deformities. BACK: No flank tenderness. NEURO: AOx4. There is left lip droop. Clear speech. Negative pronator drift. Strong equal retail route supervisor. Strong bilateral leg lifts. Light touch intact bilateral face hands and legs. Dampoq-[id number] intact bilaterally. SKIN: Warm and dry PSYCH: Not anxious, is cooperative Initial Vital Signs Initial Vital Signs: Vital Signs Temperature 97.6 F 05/20/21 19:41 Pulse Rate 84 05/20/21 19:41 Respiratory Rate 17 05/20/21 19:41 Blood Pressure 126/60 05/20/21 19:41 Pulse Oximetry 97 05/20/21 19:41 Scores NIH Stroke Scale Level of Conciousness: Alert, keenly responsive Ask month/age: Answers both questions correctly. Open/close eyes, close hand: Performs both tasks correctly Best gaze horizontal: Normal Visual mora: No visual loss Facial palsy: Minor paralysis, flattened nasolabial fold, asymmetry on smiling Left arm drift: No drift for full 10 sec Right arm drift: No drift for full 10 sec Left leg drift: No drift for full 5 sec Right leg drift: No drift for full 5 sec Limb ataxia: Absent Sensory on face/arms/legs: Normal, no sensory loss Best language: No aphasia, normal Dysarthria: Normal Extinction or inattention: No abnormality Total NIH Stroke scale score: 1 Course Course Course Narrative: No new issues during course of stay Orders Ordered: ED Orders 05/20/21 21:32 EKG-12 Lead Stat 05/20/21 21:38 COVID19 - ADMIT (CONDUCTOR FREIGHT swab/PCR) Stat Complete Blood Count AUTO DIFF Stat Comprehensive Metabolic Panel Stat Prothrombin Time INR Stat Troponin & CK Cardiac Panel Stat 05/20/21 22:28 CT head/brain wo con Stat Acetaminophen (Acetaminophen 325 Mg Tablet) 650 mg PO Q6HR PRN PRN Reason: Fever/Mild Pain (1-3) Amlodipine Besylate (Amlodipine 5 Mg Tablet) 2.5 mg PO DAILY MELONIE Aspirin (Aspirin Ec 81 Mg Tablet) 81 mg PO DAILY [facility] Atorvastatin Calcium (Atorvastatin 20 Mg Tablet) 80 mg PO BEDTIME MELONIE Bupropion HCl (Bupropion Sr 150 Mg Tab) 150 mg PO BID MELONIE Clopidogrel Bisulfate (Clopidogrel 75 Mg Tablet) 75 mg PO DAILY [facility] Levothyroxine Sodium (Levothyroxine 75 Mcg Tablet) 75 mcg PO 0600 [facility] Naloxone HCl (Naloxone 0.4 Mg/Ml Vial) 0.2 mg IV Q2MIN PRN PRN Reason: Opiate Reversal Ondansetron HCl (Ondansetron 4 Mg/2 Ml Inj) 4 mg IV Q8HR PRN PRN Reason: Nausea And Vomiting Triamcinolone Acetonide (Triamcinolone 0.1% Cream) 1 applic TOP DAILY MELONIE Discontinued Medications Aspirin (Aspirin 81 Mg Chew Tab) 324 mg PO NOW ONE Stop: 05/20/21 23:48 Last Admin: 05/20/21 23:51 Dose: 324 mg Documented by: MATEUSZ Clopidogrel Bisulfate (Clopidogrel 75 Mg Tablet) 75 mg PO NOW ONE Stop: 05/20/21 23:48 Last Admin: 05/20/21 23:51 Dose: 75 mg Documented by: MATEUSZ Reevaluation(s) Reevaluation #1: Reviewed with daughter and patient results. Agree for admitted for balance of stroke workup. Time: 23:42 Consultations Consultation #1: Spoke with stroke on-call, dr bauer, no CT angiogram tonight. Echocardiogram and MRI tomorrow appropriate. Start dual therapy aspirin and Plavix 75 mg for the next 3 weeks Time: 23:43 Consultation #2: Spoke with hospitalist, Lilia, will admit Time: 23:46 Vital Signs Vital signs: Vital Signs - 8 hr 05/20/21 19:41 05/20/21 20:40 05/20/21 21:00 Temperature 97.6 F Pulse Rate 84 78 75 Respiratory Rate 17 18 14 Blood Pressure 126/60 141/66 H 133/63 Pulse Oximetry 97 100 99 05/20/21 21:31 05/20/21 22:00 05/20/21 22:30 Temperature Pulse Rate 82 75 73 Respiratory Rate 25 H 13 14 Blood Pressure 154/73 H 147/69 H 136/67 Pulse Oximetry 97 98 98 MDM - Neuro Symptoms/Deficit Differential Diagnosis Differential diagnosis: Likely peripheral neuropathy, cerebrovascular accident and transient cerebral ischemia Lab Data Result diagrams: 05/20/21 21:38 05/20/21 21:38 Labs: Lab Results 05/20/21 05/20/21 05/20/21 Range/Units 21:38 21:38 21:38 WBC 8.6 (4.5-11.0) X10^3/uL RBC 3.69 L (4.5-5.9) X10^6/uL Hgb 11.1 L (13.5-17.5) g/dL Hct 33.8 L (41-53) % MCV 91.5 (80-100) fL MCH 30.0 (26-34) PG MCHC 32.8 (30-36) % RDW 13.5 (11.6-14.8) % Plt Count 192 (150-400) X10^3/uL Neut % (Auto) 69.3 (50-75) % Lymph % (Auto) 12.4 L (25-40) % Bland % (Auto) 10.0 (3-14) % Eos % (Auto) 7.5 H (2-4) % Baso % (Auto) 0.8 (0-2) % Neut # (Auto) 6000 (4919-6296) /uL Lymph # (Auto) 1100 (3699-3132) /uL Bland # (Auto) 900 (0-900) /uL Eos # (Auto) 600 H (0-450) /uL Baso # (Auto) 100 (0-100) /uL PT 13.7 H (10.1-12.7) SECONDS INR 1.2 (0.9-1.3) Sodium 141 (137-145) mmol/L Potassium 4.3 (3.4-5.1) mmol/L Chloride 108 H (98-107) mmol/L Carbon Dioxide 26 (22-32) mmol/L BUN 27 H (9-20) mg/dL Creatinine 1.86 H (0.66-1.25) mg/dL Estimated GFR 34.7 L (>60) mL/min BUN/Creatinine Ratio 14.5 (6-22) Glucose 84 (80-110) mg/dL Calcium 8.9 (8.4-10.2) mg/dL Total Bilirubin 0.3 (0.2-1.3) mg/dL AST 27 (17-59) IU/L ALT 8 (<50) IU/L Alkaline Phosphatase 112 (38-126) U/L Total Creatine Kinase 51 L (55-170) U/L CK-MB (CK-2) TNP CK-MB (CK-2) Rel Index TNP Troponin I < 0.012 (0.01-0.034) ng/mL Total Protein 6.9 (6.3-8.2) g/dL Albumin 3.5 (3.5-5.0) g/dL Globulin 3.4 (1.7-4.1) g/dL Albumin/Globulin Ratio 1.0 (1.0-2.8) SARS-CoV-2 (PCR) (Negative) 05/20/21 Range/Units 21:38 WBC (4.5-11.0) X10^3/uL RBC (4.5-5.9) X10^6/uL Hgb (13.5-17.5) g/dL Hct (41-53) % MCV (80-100) fL MCH (26-34) PG MCHC (30-36) % RDW (11.6-14.8) % Plt Count (150-400) X10^3/uL Neut % (Auto) (50-75) % Lymph % (Auto) (25-40) % Bland % (Auto) (3-14) % Eos % (Auto) (2-4) % Baso % (Auto) (0-2) % Neut # (Auto) (1813-4394) /uL Lymph # (Auto) (5014-3741) /uL Bland # (Auto) (0-900) /uL Eos # (Auto) (0-450) /uL Baso # (Auto) (0-100) /uL PT (10.1-12.7) SECONDS INR (0.9-1.3) Sodium (137-145) mmol/L Potassium (3.4-5.1) mmol/L Chloride (98-107) mmol/L Carbon Dioxide (22-32) mmol/L BUN (9-20) mg/dL Creatinine (0.66-1.25) mg/dL Estimated GFR (>60) mL/min BUN/Creatinine Ratio (6-22) Glucose (80-110) mg/dL Calcium (8.4-10.2) mg/dL Total Bilirubin (0.2-1.3) mg/dL AST (17-59) IU/L ALT (<50) IU/L Alkaline Phosphatase (38-126) U/L Total Creatine Kinase (55-170) U/L CK-MB (CK-2) CK-MB (CK-2) Rel Index Troponin I (0.01-0.034) ng/mL Total Protein (6.3-8.2) g/dL Albumin (3.5-5.0) g/dL Globulin (1.7-4.1) g/dL Albumin/Globulin Ratio (1.0-2.8) SARS-CoV-2 (PCR) Negative (Negative) Imaging Data CT scan - head: Radiologist's Impression: Read by overnight radiologist chronic involutional volume loss with no acute findings ECG Data Interpretation: Normal sinus rhythm, rate [address] elevation or depression MDM Narrative Medical decision making narrative: Appropriate for admission for balance of stroke workup. Patient outside window of tPA. Patient and daughter understand. Discharge Plan Departure Patient Disposition: Admitted as Observation Clinical Impression: Transient cerebral ischemia Qualifiers: Transient cerebral ischemia type: unspecified Qualified Code(s): G45.9 - Transient cerebral ischemic attack, unspecified Admit Date/Time: 05/20/21 23:52 Admit Provider: Prema Cook
[2021-05-20 22:01] LABS: Alanine Aminotransferase 8 IU/L (<50); Albumin 3.5 g/dL (3.5-5.0); Alkaline Phosphatase 112 U/L (38-126); Aspartate Aminotransferase 27 IU/L (17-59); BUN Creatinine Ratio 14.5 (6-22); Bilirubin Total 0.3 mg/dL (0.2-1.3); Blood Urea Nitrogen 27 mg/dL (9-20); Calcium 8.9 mg/dL (8.4-10.2); Carbon Dioxide 26 mmol/L (22-32); Chloride 108 mmol/L (98-107); Creatine Kinase 51 U/L (55-170); Estimated Glomerular Filt Rate 34.7 mL/min (>60); Globulin 3.4 g/dL (1.7-4.1); Glucose 84 mg/dL (80-110); HEMOLYSIS < 15 (0-50); Potassium 4.3 mmol/L (3.4-5.1); Sodium 141 mmol/L (137-145); Total Protein 6.9 g/dL (6.3-8.2)
[2021-05-20 22:03] LABS: Add Manual Diff / Slide Review NO; Basophils Absolute Auto 100 /uL (0-100); Basophils Percent Auto 0.8 % (0-2); Eosinophils Absolute Auto 600 /uL (0-450); Eosinophils Percent Auto 7.5 % (2-4); Hematocrit 33.8 % (41-53); Hemoglobin 11.1 g/dL (13.5-17.5); Lymphocytes Absolute Auto 1100 /uL (1100-4500); Lymphocytes Percent Auto 12.4 % (25-40); Mean Corpuscular HGB Conc 32.8 % (30-36); Mean Corpuscular Volume 91.5 fL (80-100); Monocytes Absolute Auto 900 /uL (0-900); Neutrophils Absolute Auto 6000 /uL (1500-7000); Neutrophils Percent Auto 69.3 % (50-75); Platelet Count 192 X10^3/uL (150-400); Red Blood Cell Count 3.69 X10^6/uL (4.5-5.9); Red Cell Distribution Width 13.5 % (11.6-14.8); White Blood Cell Count 8.6 X10^3/uL (4.5-11.0)
[2021-05-20 22:13] LABS: Troponin I < 0.012 ng/mL (0.01-0.034)
[2021-05-20 22:14] LABS: INR 1.2 (0.9-1.3); Prothrombin Time 13.7 SECONDS (10.1-12.7)
--- NOTE | 2021-05-20 22:28 | DI.CT.S_ITS ---
PROCEDURE: CT HEAD/BRAIN WO CON INDICATIONS: Left facial droop TECHNIQUE: Noncontrast 4.5 mm thick angled axial sections acquired from the foramen magnum to the vertex, with coronal and sagittal reformats. For radiation dose reduction, the following was used: automated exposure control, adjustment of mA and/or kV according to patient size. COMPARISON: None. FINDINGS: Image quality: Excellent. CSF spaces: Basal cisterns are patent. No extra-axial fluid collections. The ventricles are symmetric in size and shape. Brain: No intracranial bleeds or masses. There is cerebral volume loss for age, with resultant ventricular and sulcal prominence. There are periventricular and deep white matter chronic small vessel ischemic changes. There is intracranial internal carotid artery atherosclerosis. Skull and face: Calvarium and visualized facial bones appear intact, without suspicious lesions. Sinuses: Visualized sinuses and mastoids are clear. IMPRESSION: No acute intracranial disease process. Dictated by: Anna Perrin MD, PhD on 05/21/2021 at 7:02 Approved by: Anna Perrin MD, PhD on 05/21/2021 at 7:03
[2021-05-20 22:46] LABS: COVID19 - ADMIT (NP swab/PCR) Negative (Negative)
[2021-05-20] MEDS: ASPIRIN 81 MG CHEW TAB 324 MG PO (23:51)
[2021-05-20] MEDS: CLOPIDOGREL 75 MG TABLET PO (23:51)
[2021-05-21] VITALS (11 sets, daily range): BP systolic 125–154; BP diastolic 68–75; PULSE 69–91; RESP 16–20; TEMP 36.4–36.8; O2SAT 92–97; BMI 22.1
--- NOTE | 2021-05-21 | DI.MRI.S_ITS ---
PROCEDURE: MR STROKE Pre- and post-contrast brain MRI, non-contrast brain MR angiogram, pre- and postcontrast neck MR angiogram INDICATIONS: CVA TECHNIQUE: Brain: Noncontrast axial T1 spin echo, axial T2 fast spin echo, sagittal and axial FLAIR, coronal T2 fast spin echo, axial gradient echo, axial diffusion and ADC through the brain. After the administration of contrast, axial 3D VIBE of the cranial vasculature and brain. Brain MRA: Non-contrast 3-D time of flight MR angiogram, with multiple ttbydby-jfabbzute-tgqmufshek (MIP) reformats performed. Neck MRA: Axial and sagittal TruFISP through the neck. Coronal dynamic MR angiogram during administration of contrast in the arterial and venous phases, with 3-dimenstional mvkenjr-sxtmjdizn-whrxghgszk (MIP) reformats constructed from subtraction images. COMPARISON: None. FINDINGS: Image quality: Excellent. BRAIN: CSF spaces: Ventricles are normal in size and shape. Basal cisterns are patent. No extra-axial fluid collections. Brain: No intracranial bleeds or mass effects. Vela-white matter interface is normal. Diffusion weighted images show no acute ischemic insults. Brainstem appears normal. Normal intravascular flow voids are present. No abnormal intracranial enhancement. Note is made of age-appropriate brain parenchymal volume loss and chronic small vessel ischemic changes. Relatively prominent perivascular spaces are noted. Skull and face: Calvarial marrow signal is normal. Orbits appear normal. Note is made of bilateral lens replacements. Sinuses: Sinuses and mastoids are clear. BRAIN MR ANGIOGRAM: Anterior circulation: Intracranial internal carotid arteries are normal in size and enhancement. The flow within the paired anterior cerebral arteries is normal and symmetric. The flow within the middle cerebral arteries is normal and symmetric. The anterior communicating artery is seen. No stenoses, occlusions, or aneurysms. Posterior circulation: The right vertebral artery is dominant to the left. Areas of high-grade narrowing can be seen involving proximal V4 segment, with at least 80% narrowing. There is partial distal reconstitution. The vertebral arteries join to form a normal appearing basilar artery. The flow within the posterior cerebral arteries is normal and symmetric. No stenoses, occlusions, or aneurysms. NECK MR ANGIOGRAM: Carotids: Great vessels demonstrate a conventional anatomy as they arise from the aortic arch. The origins of the common carotid arteries appear patent, although there is a likely 50% narrowing seen involving the origin of left common carotid artery. The calibers and courses of both common carotid arteries are normal. The bifurcation regions demonstrate atherosclerotic irregularity, yet without a hemodynamically significant stenosis. The distal internal carotid arteries demonstrate normal caliber. Posterior circulation: The origins of the vertebral arteries appear patent. More superior portions of both vertebral arteries demonstrate normal course and caliber, with the right vertebral artery dominant to the left. Miscellaneous: Subclavian arteries appear patent. Pre-contrast images through the neck show no soft tissue abnormalities. IMPRESSION: BRAIN MRI: No findings of acute or subacute infarction can be seen. Note is made of age-appropriate brain parenchymal volume loss and chronic small vessel ischemic changes. BRAIN MR ANGIOGRAM: At least 80% narrowing can be seen involving the proximal left V4 segment. No additional significant intracranial arterial abnormality is seen. NECK MR ANGIOGRAM: Likely 50% narrowing seen involving the origin of the left common carotid artery, although this is not well seen. Dictated by: Jason Mayberry M.D. on 05/21/2021 at 14:40 Approved by: Jason Mayberry M.D. on 05/21/2021 at 14:46
--- NOTE | 2021-05-21 03:13 | PC.ADMIT ---
773 Maye Admission Note: Patient arrived from the ED via bed at 0105. Patient is A/O and denies any pain. Patient only had his clothes and shoes with him and states his daughter took the rest of his belongings home with her. Patient was oriented to the room and call light. Bed is in lowest position and call light is within reach. No other requests at this time. The patient,Talib Dsouza,86 y/o, was given written information regarding hospital policies, unit procedures and contact persons. Patient's smoking status: Former smoker. Vital Signs - 8 hr 05/20/21 19:41 05/20/21 20:40 05/20/21 21:00 Temperature 97.6 F Pulse Rate 84 78 75 Respiratory Rate 17 18 14 Blood Pressure 126/60 141/66 H 133/63 Pulse Oximetry 97 100 99 05/20/21 21:31 05/20/21 22:00 05/20/21 22:30 Temperature Pulse Rate 82 75 73 Respiratory Rate 25 H 13 14 Blood Pressure 154/73 H 147/69 H 136/67 Pulse Oximetry 97 98 98 05/20/21 23:53 05/21/21 00:00 05/21/21 00:30 Temperature Pulse Rate 87 74 72 Respiratory Rate 15 18 19 Blood Pressure 129/64 138/70 150/71 H Pulse Oximetry 96 97 96 05/21/21 01:05 Temperature 97.7 F Pulse Rate 74 Respiratory Rate 16 Blood Pressure 154/72 H Pulse Oximetry 97
[2021-05-21 03:16] LABS: Hemoglobin A1C% w Est Avg Glu 5.4 % (4.0-6.0); Thyroid Stimulating Hormone 2.87 uIU/mL (0.47-4.68)
--- NOTE | 2021-05-21 04:52 | P.HP_ITS ---
History of Present Illness History of Present Illness Date Patient Seen: 05/21/21 Time Patient Seen: 02:00 Chief complaint: FALL LOW BLOOD PRESSURE Narrative: aTlib Carrington is an 86-year-old male with a history of hypertension, hyperlipidemia, hypothyroidism, BPH, parkinsonian syndrome, and depression was in his usual state of health and out walking with his daughter today when he took a slow fall to the ground. This was believed to have occurred at appro ximately 1400 on 05/20. He developed weakness on his left leg he was able to use his right knee which was already on the ground help him get but felt that he was unable to walk at that time. Paramedics were called by his daughter and she noted that he also had a droop of his left side of his face. He denies headaches, hitting his head, difficulty swallowing, shortness of breath, chest pain, nausea or vomiting, dysuria, diarrhea or constipation, and continues to endorse having left leg weakness and left arm weakness. He was reported to me in the ED to have a NIH score of 1, nursing in the ED scored him at 0. Noncontrast head CT indicated normal age related volume loss with no acute hemorrhage or stroke. Patient's temperature was 97.7?, blood pressure 152/72, heart rate 73, respiratory rate 16, oxygen saturation of 94% on room air, he weighs 55 kg with BMI of 22.1. He is mildly anemic with a hemoglobin and hematocrit of 0.1 and 33.8, he does have an elevated creatinine at 1.86 the r eview of his past records indicates this seems to be close to his baseline, GFR is 34.7 hemoglobin A1c is 5.4 his 1st troponin was within normal limits and a 2nd troponin is pending, TSH is 2.87 and COVID 19 PCR is negative. Patient History Medical History Acute kidney injury (05/11/19) Anxiety Central sleep apnea Depression Former smoker HLD (hyperlipidemia) HTN (hypertension) Hypothyroidism Normocytic anemia Patient denies significant medical history TIA (transient ischemic attack) (~04/2019) Surgical History H/O shoulder surgery History of cholecystectomy (~2004) History of hernia repair Family & Social History Family History Father Suicide Mother Parkinson's disease Son History of open heart surgery Social History: household members none Prior Living Arrangements House Safety & Behavioral: Feels Safe in Current Yes Environment Been Physically Hurt or No Threatened By a Person Suicidal Ideation Description None Suicide Plan Description No Plan Tobacco & Substance use: Tobacco type cigars quit in 2001 Smoking Status Former smoker alcohol intake former alcohol intake frequency 0-2 drinks per day Substance Use Type does not use Meds Home Medications and Allergies Home Medications Medication Instructions Recorded Confirmed Type atorvastatin 40 mg tablet 40 mg PO DAILY #0 05/11/19 01/15/21 History cranberry 1 cap PO DAILY 05/11/19 01/15/21 History amlodipine 2.5 mg tablet 2.5 mg PO DAILY 10/05/19 01/15/21 History aspirin 81 mg tablet,delayed 81 mg PO DAILY 10/05/19 01/15/21 History release bupropion HCl 150 mg tablet,12 hr 150 mg PO BID 10/14/19 01/15/21 History sustained-release fluorouracil 0.5 % topical cream 1 applic TOPICAL DAILY 10/14/19 01/15/21 History levothyroxine 75 mcg tablet 75 mcg PO DAILY 10/14/19 01/15/21 History multivitamin 1 tab PO DAILY 10/14/19 01/15/21 History triamcinolone acetonide 0.1 % 1 applic TOPICAL DAILY 10/14/19 01/15/21 History topical cream lidocaine 5 % topical patch 1 patch TOP DAILY PRN #15 each 06/10/20 01/15/21 Rx acetaminophen [Tylenol] 250 mg PO 01/15/21 01/15/21 History Allergies Allergy/AdvReac Type Severity Reaction Status Date / Time adhesive Allergy Mild Rash Verified 05/20/21 19:46 hay fever Allergy Mild Uncoded 05/20/21 19:46 Review of Systems Review of Systems ROS: Yes All systems reviewed with the patient and are negative except as otherwise documented Exam Vital Signs (past 8 hours): - 05/20/21 21:00 05/20/21 21:31 05/20/21 22:00 Temperature Pulse Rate 75 82 75 Respiratory Rate 14 25 H 13 Blood Pressure 133/63 154/73 H 147/69 H Pulse Oximetry 99 97 98 05/20/21 22:30 05/20/21 23:53 05/21/21 00:00 Temperature Pulse Rate 73 87 74 Respiratory Rate 14 15 18 Blood Pressure 136/67 129/64 138/70 Pulse Oximetry 98 96 97 05/21/21 00:30 05/21/21 01:05 05/21/21 03:20 Temperature 97.7 F Pulse Rate 72 74 73 Respiratory Rate 19 16 Blood Pressure 150/71 H 154/72 H Pulse Oximetry 96 97 94 Oxygen Delivery Method Room Air Oxygen Flow Rate 0 Narrative Exam Narrative: Gen: Alert, oriented, thin and chronically appearing 86 y.o. male, appears tired HEENT: left sided facial droop, tongue is midline, normocephalic, atraumatic, conjunctiva clear, sclera non-icteric, oral mucosa pink and moist Neck: supple, full ROM, no JVD, trachea is midline Resp: Lungs CTA, non-labored breathing CV: RRR, no murmur or rubs Abd: soft, non-tender, normoactive BTs Skin: no lesions or rashes, dry and intact Neuro: Alert and oriented X 4 w/no focal deficits. Speech with a slight lisp. Extremities: moves all 4 extremities, is ambulatory, negative Kaiden?s sign Psyche: normal mood and affect. Objective ECG Impression: Patient has had multiple EKGs were done due to a flipped T-wave that shows up on telemetry. We switched out the monitor box and wires and it continues to show the flipped T-waves in lead 1. EKGs are not showing flipped T-waves and this should be evaluated in the morning. Labs Result Diagrams: 05/20/21 21:38 05/20/21 21:38 Labs: Laboratory Results - last 24 hr 05/20/21 05/20/21 05/20/21 21:38 21:38 21:38 WBC 8.6 RBC 3.69 L Hgb 11.1 L Hct 33.8 L MCV 91.5 MCH 30.0 MCHC 32.8 RDW 13.5 Plt Count 192 Neut % (Auto) 69.3 Lymph % (Auto) 12.4 L Crook % (Auto) 10.0 Eos % (Auto) 7.5 H Baso % (Auto) 0.8 Neut # (Auto) 6000 Lymph # (Auto) 1100 Crook # (Auto) 900 Eos # (Auto) 600 H Baso # (Auto) 100 PT 13.7 H INR 1.2 Sodium 141 Potassium 4.3 Chloride 108 H Carbon Dioxide 26 BUN 27 H Creatinine 1.86 H Estimated GFR 34.7 L BUN/Creatinine Ratio 14.5 Glucose 84 Hemoglobin A1c Calcium 8.9 Total Bilirubin 0.3 AST 27 ALT 8 Alkaline Phosphatase 112 Total Creatine Kinase 51 L CK-MB (CK-2) TNP CK-MB (CK-2) Rel Index TNP Troponin I < 0.012 Total Protein 6.9 Albumin 3.5 Globulin 3.4 Albumin/Globulin Ratio 1.0 TSH SARS-CoV-2 (PCR) 05/20/21 05/20/21 05/20/21 21:38 21:38 21:38 WBC RBC Hgb Hct MCV MCH MCHC RDW Plt Count Neut % (Auto) Lymph % (Auto) Crook % (Auto) Eos % (Auto) Baso % (Auto) Neut # (Auto) Lymph # (Auto) Crook # (Auto) Eos # (Auto) Baso # (Auto) PT INR Sodium Potassium Chloride Carbon Dioxide BUN Creatinine Estimated GFR BUN/Creatinine Ratio Glucose Hemoglobin A1c 5.4 Calcium Total Bilirubin AST ALT Alkaline Phosphatase Total Creatine Kinase CK-MB (CK-2) CK-MB (CK-2) Rel Index Troponin I Total Protein Albumin Globulin Albumin/Globulin Ratio TSH 2.87 SARS-CoV-2 (PCR) Negative Assessment & Plan Assessment & Plan narrative: Talib Dsouza will be admitted for further evaluation of an acute CVA and started on dual anti-platelet therapy. 1. Probable left-sided stroke, acute, present on admission * ardiac telemetry * NIH score greater than 5 [X]no, ? NIH scoring and neuro checks q 4 hours * Dual antiplatelet therapy: No[] Yes[]initiate dual antiplatelet therapy with clopidogrel 75 mg p.o. daily and aspirin 81 mg p.o. daily * MR stroke scheduled for 05/21 * Limited Echo for 05/21 * PT/OT/ST evaluation 2. Hypertension, acute with an admission bp of 126/60, present on admission * Allow for permissive hypertension of 220/110 HR 60 to allow for brain perfusion * Allow for permissive hypertension for brain profusion of a systolic of 220 and a diastolic of 105. * IV labetolol if his systolic exceeds 220 or diastolic greater than 105. * After 24 hours, may resume home dose of amlodipine 2.5 mg daily 3. HLD * Fasting lipid panel, pending for 0500 labs * Atorvastatin 40 mg po at bedtime 4. Hypothyroidism, chronic * TSH is within normal limits * Continue home dose of levothyroxine 75 mcg daily Risk stratification Fasting lipid panel pending for the morning A1c is 5 % 5.3 Diabetes type 2 [X] not diabetic VTE Prophylaxis: Wells risk score 0 heparin 5000 units b.i.d. due to patient's impaired renal function Patient is admitted to the inpatient service due to the severity of disease, risks of further disease progression and this stay is expected to exceed 2 midnights. FEN: IV fluids: IV saline lock, diet: Heart healthy, labs: CBC, C/BMP, liver enzymes, Mag Consultants None Dispo: probable discharge to home with followup with his PCP Code status: limited code no CPR or defibrillation as discussed with the patient who identifies his daughter Pilo short as his surrogate and POA. I confirmed that the patient's advanced care plan is present, code status is determined, or surrogate decision maker is listed on the patient's medical record. [X] I have utilized all available immediate resources to obtain, update, or revi ew of the patient's current medications [X] The patient has current or prior documentation of the left ventricular ejection fraction (LEVF) less than 40% or moderate or severely depressed left ventricular systolic function. [X] No COVID-19 COVID-19 status: Negative Result date/Date tested (Pos, Neg/Pending): 05/21/21 Scores NIHSS Level of Conciousness: Alert, keenly responsive Ask month/age: Answers both questions correctly. Open/close eyes, close hand: Performs both tasks correctly Best gaze horizontal: Normal Visual mora: No visual loss Facial palsy: Normal symetrical movement Left arm drift: No drift for full 10 sec Right arm drift: No drift for full 10 sec Left leg drift: No drift for full 5 sec Right leg drift: No drift for full 5 sec Limb ataxia: Absent Sensory on face/arms/legs: Normal, no sensory loss Best language: No aphasia, normal Dysarthria: Normal (He has both an accent and a lisp) Extinction or inattention: No abnormality Total NIH Stroke scale score: 0 Wells' Criteria for PE Clinical signs and symptoms of DVT: No PE is #1 Dx or equally likely: No Heart rate > 100: No Immobilization at least 3 days or surg in previous 4 weeks: No History of PE or DVT: No Hemoptysis: No Malignancy w/Treatment within 6 months or palliative: No Wells' PE Score total: 0 Quality Stroke Contraindication Not Initiating IV-Tpa: Contraindicated (Time last seen normal outside the window) Onset of Symptoms Date: 05/20/21 Onset of Symptoms Time: 14:00 Symptom Onset Unknown: Yes Contraindication Antithromb by Day Two: Not indicated Rehab Services Assessed: Rehabilitation therapy VTE Deep Vein Thrombosis/Pulmonary Embolism Present on Admission: No
--- NOTE | 2021-05-21 05:00 | DI.ECHO.S_ITS ---
[place] +---------+ Hospital +---------+ : : [address] : [address] : : : : [id number] : : : : Phone: [phone]+ Echocardiogram Report + + :Name: GUERDA SALEH Study Date: 05/21/2021 Height: 62 in : :[facility] ReadingLocation: Weight: 121 lb: : Gender: Male BSA: 1.5 m2 : :: 1935 Age: 86 yrs : :Reason For Study: CVA : :Ordering Physician: MALLORY GUTIERREZ Performed By: Vani Fung : :Referring: MALLORY GUTIERREZ : + + Interpretation Summary The ejection fraction is estimated to be 60-65%. Grade I diastolic dysfunction. The right ventricle is normal in size and function. There is mild aortic valve sclerosis. There is mild tricuspid regurgitation. Top normal PASP. Compared to the prior study dated 05/12/2019, no significant change. Procedure: A two-dimensional transthoracic echocardiogram with color flow and Doppler was performed. The study quality was technically adequate. Comparison is made with the echocardiogram of 05/12/2019. The patient was in sinus rhythm with heart rates between 75-80 bpm during the exam. Left Ventricle: The left ventricle is normal in size and wall thickness. The ejection fraction is estimated to be 60-65%. Diastolic parameters suggest a relaxation abnormality of the left ventricle, consistent with probable normal filling pressures. Right Ventricle: The right ventricle is normal in size and function. Atria: The left atrium is mildly dilated. Right atrial size is normal. There is no Doppler evidence for an interatrial shunt. Mitral Valve: There is mild mitral annular calcification. The mitral valve leaflets appear mildly thickened, but open well. There is trace mitral regurgitation. Aortic Valve: There is mild aortic valve sclerosis. The aortic valve is trileaflet. There is no aortic valve stenosis. No aortic regurgitation is present. Tricuspid Valve: The tricuspid valve is normal in structure and function. There is mild tricuspid regurgitation. The right ventricular systolic pressure is estimated to be at least 30-35 mmHg based on an estimated right atrial pressure of 3 mm Hg. Pulmonic Valve: The pulmonic valve leaflets are thin and pliable; valve motion is normal. There is no pulmonic valvular regurgitation. Great Vessels: The aortic root is normal size. The dimensions of the ascending aorta are normal. The IVC is of normal diameter and collapses greater than 50% with a sniff. This suggests a low right atrial pressure of 3 mm Hg. Pericardium/ Pleura There is no pericardial effusion. There is no pleural effusion. MMode/2D Measurements & Calculations LVIDd: 3.6 cm LVOT diam: 2.1 cm LVIDs: 2.4 cm Ao root diam: 3.7 cm FS: 33.7 % asc Aorta Diam: 3.1 cm IVSd: 0.80 cm LVPWd: 0.87 cm LV garcia. diameter/BSA (cm/m^2): 2.3 LV sys. diameter/BSA (cm/m^2): 1.5 LA A2 area: 20.7 cm2 RA long axis: 4.3 cm LA A4 area: 13.4 cm2 RA area: 12.9 cm2 LA length (vol): 4.4 cm RA vol: 32.6 ml LA vol: 54.0 ml RA : 21.1 ml/m2 LA vol index: 35.0 ml/m2 IVC diam: 1.4 cm RVD1 (basal): 2.8 cm TAPSE: 1.7 cm Doppler Measurements & Calculations Ao V2 max: 171.0 cm/sec LVOT Max Anshu: 82.4 cm/sec Ao V2 mean: 119.1 cm/sec LV V1 max P.7 mmHg Ao max P.7 mmHg LV V1 VTI: 16.5 cm Ao mean P.4 mmHg EDIS(I,D): 1.6 cm2 Ao V2 VTI: 36.5 cm EDIS(V,D): 1.6 cm2 sev ratio: 0.45 EDIS indexed to BSA (cm^2/m^2): 1.0 MV E max anshu: 69.7 cm/sec TR max anshu: 244.8 cm/sec MV A max anshu: 86.3 cm/sec TR max P.0 mmHg MV E/A: 0.81 PA V2 max: 105.3 cm/sec Med Peak E' Anshu: 6.6 cm/sec PA V2 mean: 74.1 cm/sec E/E' med: 10.6 PA mean P.5 mmHg Lat Peak E' Anshu: 10.5 cm/sec PA pr(Accel): 43.0 mmHg E/E' lat: 6.6 E/e' average: 8.6 MV dec time: 0.18 sec SVLVOT): 56.6 ml Reading Physician:12:01 PM
[2021-05-21] MEDS: LEVOTHYROXINE 75 MCG TABLET PO (05:11)
[2021-05-21 06:07] LABS: Add Manual Diff / Slide Review NO; Basophils Absolute Auto 100 /uL (0-100); Basophils Percent Auto 1.1 % (0-2); Eosinophils Absolute Auto 800 /uL (0-450); Hematocrit 32.1 % (41-53); Hemoglobin 10.9 g/dL (13.5-17.5); Lymphocytes Absolute Auto 1400 /uL (1100-4500); Lymphocytes Percent Auto 17.4 % (25-40); Mean Corpuscular HGB Conc 33.9 % (30-36); Mean Corpuscular Hemoglobin 30.9 PG (26-34); Mean Corpuscular Volume 91.4 fL (80-100); Monocytes Absolute Auto 800 /uL (0-900); Monocytes Percent Auto 9.9 % (3-14); Neutrophils Absolute Auto 4800 /uL (1500-7000); Neutrophils Percent Auto 61.6 % (50-75); Platelet Count 163 X10^3/uL (150-400); Red Blood Cell Count 3.51 X10^6/uL (4.5-5.9); Red Cell Distribution Width 13.8 % (11.6-14.8); White Blood Cell Count 7.8 X10^3/uL (4.5-11.0)
[2021-05-21 06:24] LABS: BUN Creatinine Ratio 13.7 (6-22); Blood Urea Nitrogen 24 mg/dL (9-20); Calcium 8.9 mg/dL (8.4-10.2); Carbon Dioxide 22 mmol/L (22-32); Chloride 110 mmol/L (98-107); Cholesterol 164 mg/dL (140-199); Estimated Glomerular Filt Rate 37.1 mL/min (>60); Glucose 88 mg/dL (80-110); HDL Cholesterol 37 mg/dL (40-60); HEMOLYSIS < 15 (0-50); LDL Cholesterol Calculated 112 mg/dL (<100); Magnesium 2.1 mg/dL (1.6-2.3); Sodium 138 mmol/L (137-145); Triglycerides 74 mg/dL (35-150)
[2021-05-21 06:35] LABS: Troponin I < 0.012 ng/mL (0.01-0.034)
--- NOTE | 2021-05-21 09:11 | CM.DANOTE ---
DCP: Case received, EMR reviewed and met with patient. Introduced self and role. Was able to obtain information regarding patient's baseline activity status prior to hospitalization, as well as his current living situation. DCP assessment completed with information currently available. Patient is an 86 year old male who admitted yesterday evening to the care of the hospitalist team. PCP: Medicare/[facility]. Patient came to the hospital via wheel-chair secondary to weakness, as well as some facial droop. Patient had been walking with his daughter, and he stated, he felt like his left leg gave out. Patient is here for CVA work up, and has history of TIA. He is scheduled for MRI at 1500, and echo as well. Met with patient in his room. He was sitting up in his chair, alert and oriented. He resides on [facility], in [place] alone, but his daughter, Yumi, also lives on the [address]. Patient indicated that he does still drive, but not lately, and uses no DME at baseline. P: DCP to continue to follow. He will also be working with P.T. as well. Adriane Rojas RN/Key Worker
[2021-05-21] MEDS: buPROPion SR 150 MG TAB PO (09:47)
[2021-05-21] MEDS: ASPIRIN EC 81 MG TABLET PO (09:47)
[2021-05-21] MEDS: HEPARIN 5,000 UNIT/ML VIAL 5000 UNIT SUBCUT (09:47)
[2021-05-21] MEDS: CLOPIDOGREL 75 MG TABLET PO (09:47)
[2021-05-21] MEDS: TRIAMCINOLONE 0.1% CREAM 1 APPLIC TOP (09:48)
[2021-05-21 10:01] LABS: Troponin I < 0.012 ng/mL (0.01-0.034)
--- NOTE | 2021-05-21 10:08 | PT.IIE ---
Medical History (Last Reviewed 05/21/21 @ 05:30 by RAZIA Ott) Acute kidney injury (05/11/19) Anxiety Central sleep apnea Depression Former smoker HLD (hyperlipidemia) HTN (hypertension) Hypothyroidism Normocytic anemia Patient denies significant medical history TIA (transient ischemic attack) (~04/2019) Physical Therapy Inpatient Evaluation/Re-Eval M1 PT/OT-IP Prior Functional Status Start: 05/21/21 09:27 Freq: Status: Active Protocol: Document 05/21/21 09:25 MB (Rec: 05/21/21 10:08 BESSIE [id number]) Medical Review Prior Functional Status Medical History Reviewed Yes Diet/Fluid Consistency Regular Communication WNLs Mobility and Gait Ambulated with cane in left hand Activities of Daily Living and IADL's Pt reports I for ADLs in the house and that his daughter did the driving and helps with most errands Social History Household Members none Living Arrangements House Number of Floors (Floors) One Floor Number of Stairs To Enter/Railing? Eight small stairs with left rail ascend to enter Home Equipment Straight Cane Employment Status Retired M2 PT-IP Current Condition Start: 05/21/21 09:27 Freq: Status: Active Protocol: Document 05/21/21 09:25 MB (Rec: 05/21/21 10:08 [id number]) Physical Therapy Current Condition Current Condition Evaluation Date 05/21/21 Treatment Diagnosis Orthostasis, event of left leg weakness and giving way, slow fall Precautions Other Precautions Fall risk, orthostatic with sit to stand with PT this morning M3 PT-IP Subjective Start: 05/21/21 09:27 Freq: Status: Active Protocol: Document 05/21/21 09:25 MB (Rec: 05/21/21 10:08 [id number]) Subjective Physical Therapy Visit Type Type Initial Evaluation Visit Start Time 09:25 Visit Stop Time 09:48 Total Visit Minutes 23 Number of OVERLOCKER Visits 0 Physical Therapy Visit Comments Patient Goals To go home Therapy Pain Assessment Pain When Pain Assessed At Rest Pain Present Pain Present Denied Pain M4 PT-IP Mobility and Gait Start: 05/21/21 09:27 Freq: Status: Active Protocol: Document 05/21/21 09:25 MB (Rec: 05/21/21 10:08 MB [id number]) PT-Bed Mobility Assessment Rolling Type of Rolling Roll to Left Level of Assist Independent Supine to Sit Supine to Sit Independent Sit to Supine Sit to Supine Independent Scooting Scooting to Edge of Bed Standby Assistance PT-Transfer Assessment Sit to and From Stand Sit to and from Stand Standby Assistance Equipment Transfer Assistive Device Gait Belt,Standard Walker Orthotic/Prosthetic Devices or Brace: No Transfers Transfer Destination Bed Transfer Technique Stand Pivot Transfer Ability Level of Assist Contact Guard Assistance Comments Mobility Comments Pt requires SBA to CGA for sit to stands and SPT chair to bed d/t imbalance. He reaches for the bed once moving to standing from chair. Gait Assessment Gait Gait Assistance Required: Standby Assistance Distance (Feet) 70 Assistive Devices Assistive Device Gait Belt,Front Wheeled Walker Orthotic/Prosthetic Devices or Brace: No Gait Deviations General Gait Pattern Decreased Stride Length, Decreased Feet Clearance, Flexed Trunk Factors Limiting Gait Function Factors Limiting Gait Function Poor Balance,Poor Safety Awareness Comments Gait Comments 70'x2 with RW and pt presents with forward, flexed posture, decreased step-length and foot clearance and occ imbalance though no LOB, and so he requires CGA. He denies light- headedness with gait. Stair Climbing Assessment Evaluation Level of Assist On Stairs Contact Guard Assistance Devices Stair Climbing Assistive Devices Left Railing Technique/Endurance Stair Climbing Direction Ascend and Descend Stair Climbing Technique Step Over Step Number of Steps Climbed 3 Query Text: Stair Climbing Set # Repetitions (reps) 1 Comments Stair Climbing Comments Left hand on rail ascend and both hands on rail to his right with descend with quick sonam that makes him increased risk for falling and he requires CGA from PT PT-Balance Assessment Sitting Balance and Reactions Static Sitting Balance Ability Good Dynamic Sitting Balance Ability Fair Standing Balance and Reactions Static Standing Balance Ability Fair Dynamic Standing Balance Ability Poor Comments Other Balance Tests/Deviations/Treatment UE support for LE MMT in : standing Pt can stand statically to check BP and occ uses RW with right hand to keep balance ( mostly PT cues for this for safety d/t dropping BP) M6 PT-IP Treatment Start: 05/21/21 09:27 Freq: Status: Active Protocol: Document 05/21/21 09:25 MB (Rec: 05/21/21 10:08 MB [id number]) Physical Therapy Treatment Education Education Provided Safety Other Treatments Other Treatment Performed Ed pt in benefits of RW for home, dropping BP, benefits of OPPT at d/c. Ed pt in need to either d/c with family or have family stay with him immediately at d/c and then progression back to home with I and less assist. Ed pt to speak with provider about medications and hydration in setting of orthostatic hypotension. M7 PT-IP Assessment and Plan Start: 05/21/21 09:27 Freq: Status: Active Protocol: Document 05/21/21 09:25 MB (Rec: 05/21/21 10:08 MB [id number]) PT Summary Assessment and Plan Potential Rehabilitation Potential Good Status of Condition at Evaluation Evolving Summary Impairments ROM,Balance,Transfers,Gait Assessment Summary Pt is an 86 y/o male with history of about 1 fall per month per pt. He states that he was last hospitalized for a fall November of this year. He lives on [address] in a small house near his daughter and her family. She checks in on pt and assists him. He has been using a cane in his left hand. He reports history of right R TSA and TIA. He is hesitant to use a RW and PT ed him about the benefits of having one when he needs it and he does seem more agreeable at the end of assessment. He presents with orthostatic hypotension with sit to stand today with BP and HR in LUE: sit 112/55, 83; standing 92/55, 96; standing 1 ' 105/54, 98. He denies dizziness. Given his age and admit d/t fall with LLE weakness, PT does feel that orthostasis could be a concern for falls and PT ed pt in benefits of talking with provider about medications and hydration. He gait trains in the [place] and up the steps with RW and evidence of imbalance. Recommend 24 hour assist from his family immediately at d/c and progress to [facility] when at home alone and OPPT. Goals Transfer Goal Independent Gait Goal Independent Gait Distance 100 Other Goals Ascend and descend 3 steps x2 with 1 rail and I to allow safe home entrance. Days to Meet Goals 2 Frequency of Treatment Frequency Of Treatment Once a Day Treatment Plan Physical Therapy Treatment Plan Transfer Training,Gait Training,Therapeutic Exercise, Balance Retraining,Discharge Planning,Neuromuscular Re-ed Recommendations To Nursing Amount of Assist Needed 1 Person Assist Discharge Recommendations Other Discharge Recommendations Home with 24 hour assist or to his daughter's immediately at d/c. Progress to home with [facility] and OPPT, daughter taking pt to appointments. Transportation Needs at Discharge Private Vehicle
--- NOTE | 2021-05-21 12:25 | OT.IP.EVAL ---
Past Medical History (Last Reviewed 05/21/21 @ 05:30 by RAZIA Ott) Acute kidney injury (05/11/19) Anxiety Central sleep apnea Depression Former smoker H/O shoulder surgery History of cholecystectomy (~2004) History of hernia repair HLD (hyperlipidemia) HTN (hypertension) Hypothyroidism Normocytic anemia Patient denies significant medical history TIA (transient ischemic attack) (~04/2019) Surgical History (Last Reviewed 05/21/21 @ 05:30 by RAZIA Ott) H/O shoulder surgery History of cholecystectomy (~2004) History of hernia repair Occupational Therapy Inpatient Evaluation/Re-Eval M1 PT/OT-IP Prior Functional Status Start: 05/21/21 09:27 Freq: Status: Active Protocol: Document 05/21/21 12:05 [facility] (Rec: 05/21/21 13:40 [facility] [id number]) Medical Review Prior Functional Status Medical History Reviewed Yes Diet/Fluid Consistency Regular Communication WNLs Mobility and Gait Ambulated with cane in left hand Activities of Daily Living and IADL's Pt reports I for ADLs in the house and that his daughter did the driving and helps with most errands Social History Household Members none Living Arrangements House Number of Floors (Floors) One Floor Number of Stairs To Enter/Railing? Eight small stairs with left rail ascend to enter Home Equipment Straight Cane Employment Status Retired M2 OT-IP Current Condition Start: 05/21/21 13:22 Freq: Status: Active Protocol: Document 05/21/21 12:05 [facility] (Rec: 05/21/21 13:40 [facility] [id number]) Occupational Therapy Current Condition Current Condition Evaluation Date 05/21/21 Treatment Diagnosis Probable TIA versus CVA, weakness Diagnosis Onset Date 05/20/21 M3 OT- IP Subjective and Pain Start: 05/21/21 13:22 Freq: Status: Active Protocol: Document 05/21/21 12:05 [facility] (Rec: 05/21/21 13:40 [facility] [id number]) OT- Subjective Occupational Therapy Visit Type Type Initial Evaluation Visit Start Time 12:00 Visit Stop Time 12:25 Total Visit Minutes 25 Occupational Therapy Visit Comments Patient Comments Pt's daughter in the room, pt wanting to go to the bathroom. Patient/Caregiver Goals TO go home. OT Pain Assessment Pain When Pain Assessed At Rest Pain Present Pain Present Denied Pain M4 OT- IP ADL's Start: 05/21/21 13:22 Freq: Status: Active Protocol: Document 05/21/21 12:05 [facility] (Rec: 05/21/21 13:40 [facility] [id number]) OT [id number] General Evaluation Self-Feeding Ability Independent OT ADL-Grooming General Evaluation Areas Needing Assistance Retrieving/Set-up of Grooming Items OT ADL-Oral Care Comments Oral Care Comments NOt performed. OT ADL-Toileting General Evaluation Toileting Ability Standby Assistance Comments OT Toileting Comments Pt attempted to use the urinal while standing and just needing assist to help get the gown out of the way. OT ADL-Bathing Comments OT Bathing Comments NOt performed as pt too tired. M5 OT- IP IADL's Start: 05/21/21 13:22 Freq: Status: Active Protocol: Document 05/21/21 12:05 [facility] (Rec: 05/21/21 13:40 [facility] [id number]) OT-Instrumental Activities of Daily Living Deficits IADL Deficits Identified Deficits Home Safety Awareness Awareness of Need for Assistance at Home Decreased Awareness Ability to Problem Solve Emergency Able to Problem Solve Situations Home Safety Comments Pt is open to having his daughter stay with him initially. Medication Management Medication Management Caregiver Administers Medication Management Comments Pt has an automatic pill dispenser that his daughter fills for him. Money Management Money Management Caregiver Provides Assistance Bulk Sugar Handler Bulk Sugar Handler Comments At this time would be best for his daughter to assist due to his decreased safety awareness and dynamic balance. M6 OT- IP Functional Cognition Start: 05/21/21 13:22 Freq: Status: Active Protocol: Document 05/21/21 12:05 [facility] (Rec: 05/21/21 13:40 [facility] [id number]) Cognitive Factors Limiting Selfcare Function Cognitive Ability Level of Alertness Alert Patient Orientation Name,Place,Situation Attention Span Ability Capable of Focused Attention, Capable of Sustained Attention Ability to Follow Commands Able to Follow One Step Commands Safety Awareness Underestimates Need for Assistance Cognitive Comments Cognitive Assessment Comments Pt verbal cues to slow down and think things through especially for his safety. Pt daughter states prior he has had balance issues and doctors are looking into whether he may have Parkinson's or another issue. Pt's daughter states that he has fallen multiple time in his trailer and when he leans back on his heals at times tries to overcompensate by leaning forwards and fell onto his face one time as he was not able to use his arms quick enough to help brace his fall. OT- Vision and Hearing OT- Hearing Assessment OT- Hearing Assessment WFL OT- Vision Assessment Visual Acuity Glasses For Reading Visual Attentiveness WFL Occular Pursuits WFL Visual Convergence WFL Visual Mora Impaired Vision Assessment Comments Pt seeing an addition finger peripheral when testing for visual mora. M7 OT- IP Mobility and Balance Start: 05/21/21 13:22 Freq: Status: Active Protocol: Document 05/21/21 12:05 [facility] (Rec: 05/21/21 13:40 [facility] [id number]) OT- Bed Mobility Assessment Supine to Sit Supine to Sit Assist Standby Assistance Sit to Supine Sit to Supine Assist Standby Assistance Scooting Scooting to Edge of Bed Standby Assistance OT-Transfer Assessment Sit to and From Stand Sit to and from Stand Standby Assistance,Contact Guard Assistance Transfers Transfer Ability Standby Assistance,Contact Guard Assistance Technique Transfer Destination Bed Transfer Technique Stand Step Pivot Devices Transfer Assistive Devices None,Gait Belt Comments Mobility Comments Pt needing from CGA to close SBA with no device. Pt states everything in the trailer is close enough to hold to for his balance. Suggested may be best to have FWW/4ww when going outside versus his cane. Pt states usually does not go outside unless someone is with him. OT- Balance Assessment Sitting Balance and Reactions Static Sitting Balance Ability Good Dynamic Sitting Balance Ability Fair Standing Balance and Reactions Static Standing Balance Ability Fair Dynamic Standing Balance Ability Poor M8 OT- IP Objective Assessments Start: 05/21/21 13:22 Freq: Status: Active Protocol: Document 05/21/21 12:05 [facility] (Rec: 05/21/21 13:40 [facility] [id number]) OT Gross Range of Motion Upper Extremity Range of Motion ROM Impairments WFL for ADL's OT Strength Upper Extremity Strength Assessment Within Functional Limits OT- Coordination Assessment Comments Coordination Comments Arthritic changes in hands. OT-Muscle Tone Assessment Muscle Tone WNL Yes OT Sensation Assessment Comments Summary Comments Intact for sensation of light touch. M9 OT- IP Assessment and Plan Start: 05/21/21 13:22 Freq: Status: Active Protocol: Document 05/21/21 12:05 [facility] (Rec: 05/21/21 13:40 [facility] [id number]) OT Summary Assessment and Plan Potential Rehabilitation Potential Good Analytic Complexity at Evaluation Low Summary OT Impairments Balance,Functional Cognition, Functional Mobility,Dressing, Bathing,Activity Tolerance Progress Towards Goals Slow Progress due to Activity Tolerance Assessment Summary Pt low complexity and here due to possible TIA or CVA. Pt's main barriers are steps, decreased dynamic balance, and decreased safety awareness. Pt would benefit from outpt PT versus HH for his balance and for his daughter to stay with him 24/7 initially. Pt's daughter has good understanding and awareness of how to assist pt as needed. Goals Grooming Goal Independent Dressing Goal Independent Toileting Goal Independent Bathing Goal Independent Toilet Transfer Goal Independent Shower Transfer Goal Independent Days to Meet Goals 4 Frequency of Treatment Frequency Of Treatment Once a Day Treatment Plan OT Treatment Plan ADL Training,Functional Cognition Training,Functional Mobility,Patient/Family Education,Discharge Planning Other Treatment Recommendations and Next Trial of 4ww versus fww/shower Treatment Focus Discharge Recommendations OT Discharge Recommendations Home with 24/7 Assist Available,Home Health, Outpatient PT Home Equipment Needs FWW versus 4ww, shower chair Transportation Needs at Discharge Private Vehicle
--- NOTE | 2021-05-21 16:20 | PM.DS.1 ---
History of Present Illness History of Present Illness Date Patient Seen: 05/21/21 Time Patient Seen: 16:20 Chief complaint: FALL LOW BLOOD PRESSURE Narrative: Per RAZIA Ott: Talib Carrington is an 86-year-old male with a history of hypertension, hyperlipidemia, hypothyroidism, BPH, parkinsonian syndrome, and depression was in his usual state of health and out walking with his daughter today when he took a slow fall to the ground. This was believed to have occurred at approximately 1400 on 05/20. He developed weakness on his left leg he was able to use his right knee which was already on the ground help him get but felt that he was unable to walk at that time. Paramedics were called by his daughter and she noted that he also had a droop of his left side of his face. He denies headaches, hitting his head, difficulty swallowing, shortness of breath, chest pain, nausea or vomiting, dysuria, diarrhea or constipation, and continues to endorse having left leg weakness and left arm weakness. He was reported to me in the ED to have a NIH score of 1, nursing in the ED scored him at 0. Noncontrast head CT indicated normal age related volume loss with no acute hemorrhage or stroke. Patient's temperature was 97.7?, blood pressure 152/72, heart rate 73, respiratory rate 16, oxygen saturation of 94% on room air, he weighs 55 kg with BMI of 22.1. He is mildly anemic with a hemoglobin and hematocrit of 0.1 and 33.8, he does have an elevated creatinine at 1.86 the review of his past records indicates this seems to be close to his baseline, GFR is 34.7 hemoglobin A1c is 5.4 his 1st troponin was within normal limits and a 2nd troponin is pending, TSH is 2.87 and COVID 19 PCR is negative. Discharge Providers Provider Date of admission: 05/20/21 23:52 Discharge Date: 05/21/21 Primary care physician: Antonino Sandhu MD Consults: 05/21/21 02:04 Consult to Discharge Planning Routine Comment: Consult to Occupational Therapy Evaluate & Treat Comment: Physician Instructions: Evaluate and treat Consult to Physical Therapy Evaluate & Treat Comment: Physician Instructions: Evaluate and Treat Consult to Speech Therapy Evaluate & Treat Comment: Physician Instructions: Evaluate and treat Discharge provider: Akash Godoy DO Summary Hospital Course Discharge Diagnosis: 1. TIA, acute 2. Hypertension, chronic 3. HLD, chronic 4. Hypothyroidism, chronic 5. History of prior TIA 6. Parkinson's disease Hospital Course: This is an 86-year-old male with a past medical history of hypertension, hyperlipidemia, hypothyroidism, Parkinson's disease and prior TIA who was admitted with stroke-like symptoms of his left side including slurred speech and a mild facial droop. Symptoms lasted for a couple of hours. Echocardiogram was unremarkable and showed no evidence of interatrial shunt, no significant valvular issues and a normal ejection fraction. CT showed no hemorrhage, and MRI was negative for any acute infarcts. His ABCD2 score was 5, and he was initiated on aspirin and Plavix therapy for stroke reduction. His usual home dose of atorvastatin 40 mg was increased 80 given suboptimal LDL of 112. Plavix therapy is recommended for 21 days. Patient was seen by PT/OT/speech and appeared at his baseline. Exam Vital Signs (past 8 hours): - 05/21/21 09:37 05/21/21 12:00 05/21/21 13:42 Temperature 98.3 F Pulse Rate 91 H Respiratory Rate 16 Blood Pressure 133/71 Pulse Oximetry 96 92 92 Oxygen Delivery Method Room Air Oxygen Flow Rate 0 Narrative Exam Narrative: Gen: Alert, oriented, thin and chronically appearing 86 y.o. male, no acute distress HEENT: normocephalic, atraumatic, conjunctiva clear, sclera non-icteric, oral mucosa pink and moist Neck: supple, full ROM, no JVD, trachea is midline Resp: Lungs CTA, non-labored breathing CV: RRR, no murmur or rubs Abd: soft, non-tender, normoactive BTs Skin: no lesions or rashes, dry and intact Neuro: Alert and oriented X 4 w/no focal deficits. mild L pill rolling tremor noted at rest. Extremities: no edema or joint effusions Psyche: normal mood and affect. Objective Labs Result Diagrams: 05/21/21 05:51 05/21/21 05:51 Labs: Laboratory Results - last 24 hr 05/20/21 05/20/21 05/20/21 21:38 21:38 21:38 WBC 8.6 RBC 3.69 L Hgb 11.1 L Hct 33.8 L MCV 91.5 MCH 30.0 MCHC 32.8 RDW 13.5 Plt Count 192 Neut % (Auto) 69.3 Lymph % (Auto) 12.4 L Sunflower % (Auto) 10.0 Eos % (Auto) 7.5 H Baso % (Auto) 0.8 Neut # (Auto) 6000 Lymph # (Auto) 1100 Sunflower # (Auto) 900 Eos # (Auto) 600 H Baso # (Auto) 100 PT 13.7 H INR 1.2 Sodium 141 Potassium 4.3 Chloride 108 H Carbon Dioxide 26 BUN 27 H Creatinine 1.86 H Estimated GFR 34.7 L BUN/Creatinine Ratio 14.5 Glucose 84 Hemoglobin A1c Calcium 8.9 Magnesium Total Bilirubin 0.3 AST 27 ALT 8 Alkaline Phosphatase 112 Total Creatine Kinase 51 L CK-MB (CK-2) TNP CK-MB (CK-2) Rel Index TNP Troponin I < 0.012 Total Protein 6.9 Albumin 3.5 Globulin 3.4 Albumin/Globulin Ratio 1.0 Triglycerides Cholesterol LDL Cholesterol, Calc HDL Cholesterol TSH SARS-CoV-2 (PCR) 05/20/21 05/20/21 05/20/21 21:38 21:38 21:38 WBC RBC Hgb Hct MCV MCH MCHC RDW Plt Count Neut % (Auto) Lymph % (Auto) Sunflower % (Auto) Eos % (Auto) Baso % (Auto) Neut # (Auto) Lymph # (Auto) Sunflower # (Auto) Eos # (Auto) Baso # (Auto) PT INR Sodium Potassium Chloride Carbon Dioxide BUN Creatinine Estimated GFR BUN/Creatinine Ratio Glucose Hemoglobin A1c 5.4 Calcium Magnesium Total Bilirubin AST ALT Alkaline Phosphatase Total Creatine Kinase CK-MB (CK-2) CK-MB (CK-2) Rel Index Troponin I Total Protein Albumin Globulin Albumin/Globulin Ratio Triglycerides Cholesterol LDL Cholesterol, Calc HDL Cholesterol TSH 2.87 SARS-CoV-2 (PCR) Negative 05/21/21 05/21/21 05/21/21 05:51 05:51 05:51 WBC 7.8 RBC 3.51 L Hgb 10.9 L Hct 32.1 L MCV 91.4 MCH 30.9 MCHC 33.9 RDW 13.8 Plt Count 163 Neut % (Auto) 61.6 Lymph % (Auto) 17.4 L Sunflower % (Auto) 9.9 Eos % (Auto) 10.0 H Baso % (Auto) 1.1 Neut # (Auto) 4800 Lymph # (Auto) 1400 Sunflower # (Auto) 800 Eos # (Auto) 800 H Baso # (Auto) 100 PT INR Sodium 138 Potassium 4.0 Chloride 110 H Carbon Dioxide 22 BUN 24 H Creatinine 1.75 H Estimated GFR 37.1 L BUN/Creatinine Ratio 13.7 Glucose 88 Hemoglobin A1c Calcium 8.9 Magnesium 2.1 Total Bilirubin AST ALT Alkaline Phosphatase Total Creatine Kinase CK-MB (CK-2) CK-MB (CK-2) Rel Index Troponin I < 0.012 Total Protein Albumin Globulin Albumin/Globulin Ratio Triglycerides 74 Cholesterol 164 LDL Cholesterol, Calc 112 H HDL Cholesterol 37 L TSH SARS-CoV-2 (PCR) 05/21/21 09:30 WBC RBC Hgb Hct MCV MCH MCHC RDW Plt Count Neut % (Auto) Lymph % (Auto) Sunflower % (Auto) Eos % (Auto) Baso % (Auto) Neut # (Auto) Lymph # (Auto) Sunflower # (Auto) Eos # (Auto) Baso # (Auto) PT INR Sodium Potassium Chloride Carbon Dioxide BUN Creatinine Estimated GFR BUN/Creatinine Ratio Glucose Hemoglobin A1c Calcium Magnesium Total Bilirubin AST ALT Alkaline Phosphatase Total Creatine Kinase CK-MB (CK-2) CK-MB (CK-2) Rel Index Troponin I < 0.012 Total Protein Albumin Globulin Albumin/Globulin Ratio Triglycerides Cholesterol LDL Cholesterol, Calc HDL Cholesterol TSH SARS-CoV-2 (PCR) [facility] Medical History Acute kidney injury (05/11/19) Anxiety Central sleep apnea Depression Former smoker HLD (hyperlipidemia) HTN (hypertension) Hypothyroidism Normocytic anemia Patient denies significant medical history TIA (transient ischemic attack) (~04/2019) Surgical History H/O shoulder surgery History of cholecystectomy (~2004) History of hernia repair Family History Father Suicide Mother Parkinson's disease Son History of open heart surgery Social History household members: none Smoking Status: Former smoker alcohol intake: former Discharge Plan Discharge Plan Patient Disposition: Home Provider Discharge Comment: You were admitted to the hospital after a TIA. you were started on medications designed to reduce your stroke risk. Please follow up with your neurologist as previously scheduled, and check in with PCP in 2-4 weeks to go over medications that were changed. Your atorvastatin was increased to 80 mg, and you will take a medication slightly stronger than aspirin called plavix (clopidogrel) for 21 days to reduce stroke risk short term. Discharge orders & Medications Prescriptions: New atorvastatin 80 mg tablet 80 mg PO BEDTIME 30 Days Qty: 30 RF: 0 clopidogrel [Plavix] 75 mg tablet 75 mg PO DAILY 21 Days Qty: 21 RF: 0 Continued cranberry 1 cap PO DAILY RF: 0 tamsulosin 0.4 mg capsule 0.4 mg PO DAILY RF: 0 carbidopa-levodopa 25-100 mg tablet 100 tab PO TID RF: 0 amlodipine 2.5 mg Tablet 2.5 mg PO DAILY RF: 0 aspirin 81 mg Tablet,Delayed Release (Dr/Ec) 81 mg PO DAILY RF: 0 multivitamin Tablet 1 tab PO DAILY RF: 0 bupropion HCl 150 mg Tablet Sustained-Release 12 Hr 150 mg PO BID RF: 0 triamcinolone acetonide 0.1 % Cream 1 applic TOPICAL DAILY RF: 0 levothyroxine 75 mcg Tablet 75 mcg PO DAILY RF: 0 fluorouracil 0.5 % Cream 1 applic TOPICAL DAILY RF: 0 lidocaine 5 % adhesive patch,medicated 1 patch TOP DAILY PRN (Reason: pain) Qty: 15 RF: 0 acetaminophen 250 mg PO PRN PRN (Reason: Pain (Scale Score 1-3)) RF: 0 Discontinued atorvastatin 40 mg Tablet 40 mg PO DAILY Qty: 0 RF: 0 Follow up/Referrals: Antonino Sandhu MD [Primary Care Provider] - Diet/Activity/Treatments Diet: Diet as Tolerated Activity: As tolerated Visit Report/Discharge Packet Instructions: Statin Drugs, Ischemic Stroke Discharge Data Primary Care Provider: Antonino Sandhu Attending Provider: Prema Cook Stroke Contraindication Not Initiating IV-Tpa: Contraindicated (Time last seen normal outside the window) Onset of Symptoms Date: 05/20/21 Onset of Symptoms Time: 14:00 Symptom Onset Unknown: Yes Contraindication Antithromb by Day Two: Not indicated Rehab Services Assessed: Rehabilitation therapy VTE Deep Vein Thrombosis/Pulmonary Embolism Present on Admission: No
--- NOTE | 2021-05-21 16:26 | ST.OPIE ---
Visit Care Team Role Provider Type Antonino Sandhu MD Primary Care Provider Physician Specialty: Family Practice Address: [facility] [address], [address] Email: [email or web address] Antonino Cooper MD Emergency Provider Physician Specialty: Emergency Medicine Address: [address] [place] [address], [id number] Email: [email or web address] [email or web address] Admit Provider Physician Attending Provider Specialty: Internal Medicine Address: [address] [place] [address], [address] Email: [email or web address] Speech-Language Pathology Initial Evaluation COAT PRESSER Clinical Swallow Evaluation Start: 05/21/21 09:26 Freq: Status: Active Protocol: Document 05/21/21 09:27 ZS (Rec: 05/21/21 09:55 ZS [id number]) Clinical Swallow Evaluation Session Time Visit Start Time 09:00 Visit Stop Time 09:20 Total Visit Minutes 20 Referral Reason for Referral CVA/TIA and slow fall to ground Setting Assessment Location Acute Care Visit Type Note Type Initial evaluation Patient Information Identification Type Name,Wristband History Talib is an 86 year old male admitted after a fall to the ground when walking with his daughter yesterday. Per medical record, Talib has a history of TIA and has a MRI and echo scheduled. Subjective Observations Talib was watching TV when clinician entered the room. Bed was positioned in a reclined seat position. He was soft-spoken, alert, and attentive. Reported by Patient Comment Talib reports no pain during the stroke and hospital stay with the exception of when he hit the ground after his fall. Current Diet Regular,Thin liquids Baseline Feeding Method Independent in self-feeding Results Talib reports no difficulty with eating/drinking and no changes in eating/drinking since CVA/TIA. Objective Assessment Mental Status Alert,Responsive,Cooperative Oral Integrity WFL Dentition Missing teeth Lip Function Mild impairment Observation of Lips at Rest Symmetrical Pucker Reduced range of motion, Reduced strength Lip Retraction Reduced range of motion,Left sided weakness/Drooping Alternating Pucker/Lip Retraction Reduced range of motion Tongue Function Within normal limits Observations of Tongue at Rest Within normal limits Tongue Protrusion Within normal limits Tongue Retraction Within normal limits Tongue Lateralization Within normal limits Jaw Function Within normal limits Observations of Jaw at Rest Within normal limits Jaw Opening Within normal limits Jaw Closing Within normal limits Jaw Lateralization Within normal limits Jaw Protrusion Within normal limits Jaw Retraction Within normal limits Hard/Soft Palate Function Within normal limits Observations of Hard/Soft Palate Within normal limits Nasality Within normal limits Phonation Within normal limits Respiratory Sufficiency Within normal limits Comment Talib presented with some missing dentition. He reports 3 missing teeth that will be filled in at his next dentist appointment. Talib added that he has some temporary teeth where the new teeth will go, though there appeared to be some dentition missing with no placeholders present. When smiling, Talib demonstrated mild left-sided weakness. Left -side weakness was also present when puckering his lips, in addition to reduced strength, characterized by a tremble when trying to maintain a pucker. Weakness does not appear to impact speech sound production. An informal screen of Talib's speech, language, and cognitive functions was completed. Talib responded to questions appropriately, asked clarifying questions, stated his wants and needs clearly, and had 100% intelligibility when talking. Results of screen indicate speech, language, and cognitive functions are within normal limits. Food and Liquid Trials Position During Assessment Slightly reclined,In bed Liquids Trialed Thin Solids Trialed Regular Administration Type Straw,Self-feeding Oral Impairment Within functional limits Oral Phase Comments Talib demonstrated control of the bolus while taking a bite , chewing, and swallowing. There was no anterior loss, no overt signs/symptoms of aspiration (e.g., coughing, choking, redness around eyes, etc.), and pat cracker appeared appropriately masticated prior to swallowing . Some residue was observed following swallow, but was cleared with a drink of water. Pharyngeal Impairment Within functional limits Pharyngeal Phase Comments Talib appeared to have good hyolaryngeal excursion and had no overt signs/symptoms of aspiration (e.g., coughing, choking, redness around eyes, etc.). Fatigue/Endurance Endurance WNL Strategies Attempted Other Response/Comments Trialed drinking water to clear residue after eating cracker, to which Talib responded well and was able to clear all residue. Findings Swallowing Function Within functional limits Severity of Swallow Impairment Within functional limits Prognosis Good Based on Cognitive status,Family support,Duration of symptoms/ severity Impact on Safety and Functioning No limitations Recommendations Instrumental Assessment No Swallowing Treatment No Recommended Solids Regular Recommended Liquids Thin Medication Recommendations As Tolerated Discharge Recommendations Home Education Patient/Caregiver Education Described results of evaluation,Patient expressed understanding of evaluation, Patient expressed agreement with goals & treatment plans
== END 2021-05-21 18:20 | disposition home or self-care (01) ==
LOC: ED 23:43 → AC 23:52
PROVIDERS: Admitting Provider Nurse Practitioner Family; Emergency Provider Emergency Medicine; PCP Family Medicine; Visit Provider Nurse Practitioner Family
DX: G45.9 Transient cerebral ischemic attack, unspecified (principal); R29.701 NIHSS score 1; W18.39XA Other fall on same level, initial encounter; I10 Essential (primary) hypertension; E78.5 Hyperlipidemia, unspecified; E03.9 Hypothyroidism, unspecified; N40.0 Benign prostatic hyperplasia without lower urinary tract symptoms; G20 Parkinson's disease; F32.9 Major depressive disorder, single episode, unspecified; Z86.73 Personal history of transient ischemic attack (TIA), and cerebral infarction without residual deficits; Z20.822 Contact with and (suspected) exposure to COVID-19
CPT/HCPCS: 36415; 70450; 70548; 70553; 80048; 80053; 80061; 82550; 83036; 83735; 84443; 84484; 85025; 85610; 87635; 92610; 93005; 93010; 93307; 94762; 96372; 97161; 97165; 97530; 97535; 99285; C9803; G0378; J1644

== ENCOUNTER 2021-06-05 15:44 | Emergency (ER) | payer MEDICARE, OTHER, SELFPAY ==
[2021-05-21 01:17] VITALS: BMI 22.1
[2021-06-05] VITALS (7 sets, daily range): BP systolic 121–139; BP diastolic 63–65; PULSE 76–82; RESP 13–19; TEMP 36.6; O2SAT 90–97; BMI 21.0
--- NOTE | 2021-06-05 16:06 | ED.GENADULT ---
HPI - General Adult General Chief complaint: Weakness Stated complaint: UTI, unsteady gait Time Seen by Provider: 06/05/21 16:05 History of Present Illness HPI narrative: 86-year-old gentleman with history of hypertension, hyperlipidemia hypothyroidism comes in today with complaints of increasing gait instability and simply ?falling backwards at any time I stand up?. His grandson notes that he has been falling up to 3 times a day since discharge from the hospital on 05/21. He was admitted at time after a fall was found have a urinary tract infection that was subsequently treated with all symptoms resolved. With concerns for TIA at that time he had MRI that did not suggest acute infarcts echocardiogram did not show intra-arterial shunting. He was started on both Plavix and aspirin to reduce risk of stroke. Since that fall his grandson notes that he has continued to decline in terms of gait stability inability to stand up unassisted and dramatic increased number of falls. He comes in today for further evaluation. Related Data Home Medications Medication Instructions Recorded Confirmed cranberry 1 cap PO DAILY 05/11/19 05/21/21 amlodipine 2.5 mg tablet 2.5 mg PO DAILY 10/05/19 05/21/21 aspirin 81 mg tablet,delayed 81 mg PO DAILY 10/05/19 05/21/21 release bupropion HCl 150 mg tablet,12 hr 150 mg PO BID 10/14/19 05/21/21 sustained-release fluorouracil 0.5 % topical cream 1 applic TOPICAL DAILY 10/14/19 05/21/21 levothyroxine 75 mcg tablet 75 mcg PO DAILY 10/14/19 05/21/21 multivitamin 1 tab PO DAILY 10/14/19 05/21/21 triamcinolone acetonide 0.1 % 1 applic TOPICAL DAILY 10/14/19 05/21/21 topical cream acetaminophen [Tylenol] 250 mg PO PRN PRN 01/15/21 05/21/21 carbidopa 25 mg-levodopa 100 mg 100 tab PO TID 05/21/21 05/21/21 tablet tamsulosin 0.4 mg capsule 0.4 mg PO DAILY 05/21/21 05/21/21 Previous Rx's Medication Instructions Recorded lidocaine 5 % topical patch 1 patch TOP DAILY PRN #15 each 06/10/20 atorvastatin 80 mg tablet 80 mg PO BEDTIME 30 Days #30 tab 05/21/21 clopidogrel 75 mg tablet (Plavix) 75 mg PO DAILY 21 Days #21 tab 05/21/21 Allergies Allergy/AdvReac Type Severity Reaction Status Date / Time adhesive Allergy Mild Rash Verified 05/20/21 19:46 hay fever Allergy Mild Uncoded 05/20/21 19:46 Review of Systems Review of Systems Narrative: Pertinent positive and negative findings as per HPI Remainder of review of systems is otherwise unremarkable for Constitutional: Fevers, chills, ENT: No sore throat, neck pain, ear pain CV: Chest pain, palpitations, Respiratory: Cough, wheeze, dyspnea GI: Nausea, vomiting, diarrhea, : Dysuria, hematuria, Patient History Medical History Acute kidney injury (05/11/19) Anxiety Central sleep apnea Depression Former smoker HLD (hyperlipidemia) HTN (hypertension) Hypothyroidism Normocytic anemia Patient denies significant medical history TIA (transient ischemic attack) (~04/2019) Surgical History H/O shoulder surgery History of cholecystectomy (~2004) History of hernia repair Family History Father Suicide Mother Parkinson's disease Son History of open heart surgery Social History household members: none Smoking Status: Former smoker alcohol intake: former Smoking Status: Former smoker alcohol intake frequency: 0-2 drinks per day Substance Use Type: does not use Exam Narrative Exam Narrative: General: Frail appearing in no acute distress. Able to to participate with history history. HEENT: Moist mucous membranes, normal sclera with reactive pupils, Neck: No JVD, supple Respiratory: Lungs are clear to auscultation, no wheezing no rales no rhonchi. Full and symmetrical air movement Cardiac: Regular rate and rhythm no murmurs no bruits Abdomen: Soft, nontender, good bowel tones, no flank pain Skin: Warm and dry, no rashes Neurologic: Globally weak without focal neurologic findings. Too weak to ask him to stand to test more thoroughly cerebellar function Extremities: Scattered bruises in various stages of healing with no acute findings and no specific bony point tenderness today Psych: Cooperative, appropriate insight and affect Initial Vital Signs Initial Vital Signs: Vital Signs Temperature 97.9 F 06/05/21 15:51 Pulse Rate 82 06/05/21 15:51 Respiratory Rate 16 06/05/21 15:51 Blood Pressure 137/65 06/05/21 15:51 Pulse Oximetry 96 06/05/21 15:51 Course Orders Ordered: ED Orders 06/05/21 16:10 Complete Blood Count AUTO DIFF Stat Comprehensive Metabolic Panel Stat 06/05/21 17:01 CT head/brain wo con Stat Vital Signs Vital signs: Vital Signs - 8 hr 06/05/21 15:51 Temperature 97.9 F Pulse Rate 82 Respiratory Rate 16 Blood Pressure 137/65 Pulse Oximetry 96 Medical Decision Making Lab Data Result diagrams: 06/05/21 16:10 06/05/21 16:10 Labs: Lab Results 06/05/21 06/05/21 Range/Units 16:10 16:10 WBC 8.7 (4.5-11.0) X10^3/uL RBC 3.73 L (4.5-5.9) X10^6/uL Hgb 11.1 L (13.5-17.5) g/dL Hct 34.1 L (41-53) % MCV 91.5 (80-100) fL MCH 29.7 (26-34) PG MCHC 32.5 (30-36) % RDW 14.2 (11.6-14.8) % Plt Count 276 (150-400) X10^3/uL Neut % (Auto) 72.7 (50-75) % Lymph % (Auto) 10.9 L (25-40) % Clark % (Auto) 9.2 (3-14) % Eos % (Auto) 6.0 H (2-4) % Baso % (Auto) 1.2 (0-2) % Neut # (Auto) 6300 (9564-9842) /uL Lymph # (Auto) 900 L (2050-1053) /uL Clark # (Auto) 800 (0-900) /uL Eos # (Auto) 500 H (0-450) /uL Baso # (Auto) 100 (0-100) /uL Sodium 140 (137-145) mmol/L Potassium 4.3 (3.4-5.1) mmol/L Chloride 110 H (98-107) mmol/L Carbon Dioxide 18 L (22-32) mmol/L BUN 49 H (9-20) mg/dL Creatinine 2.45 H (0.66-1.25) mg/dL Estimated GFR 25.2 L (>60) mL/min BUN/Creatinine Ratio 20.0 (6-22) Glucose 101 (80-110) mg/dL Calcium 9.1 (8.4-10.2) mg/dL Total Bilirubin 0.4 (0.2-1.3) mg/dL AST 51 (17-59) IU/L ALT 15 (<50) IU/L Alkaline Phosphatase 117 (38-126) U/L Total Protein 7.4 (6.3-8.2) g/dL Albumin 3.8 (3.5-5.0) g/dL Globulin 3.6 (1.7-4.1) g/dL Albumin/Globulin Ratio 1.1 (1.0-2.8) Urine Dip Bedside Urine Glucose Negative Bedside Urine Bilirubin - Negative Bedside Urine Ketone - Negative Urine Specific [place] 1.030 Bedside Urine Occult Blood - Negative Bedside Urine pH 6.0 Bedside Urine Protein +/- 15 Bedside Urine Urobilinogen - Negative Bedside Urine Nitrite - Negative Bedside Urine Leukocytes - Negative Esterase Point of care testing: Urine Dip Bedside Urine Glucose Negative Bedside Urine Bilirubin - Negative Bedside Urine Ketone - Negative Urine Specific [place] 1.030 Bedside Urine Occult Blood - Negative Bedside Urine pH 6.0 Bedside Urine Protein +/- 15 Bedside Urine Urobilinogen - Negative Bedside Urine Nitrite - Negative Bedside Urine Leukocytes - Negative Esterase Imaging Data CT scan - head: Radiologist's Impression: FINDINGS: Image quality: Excellent. CSF spaces: Basal cisterns are patent. No extra-axial fluid collections. The ventricles are symmetric in size and shape. Brain: No intracranial bleeds or masses. There is cerebral volume loss for age, with resultant ventricular and sulcal prominence. There are periventricular and deep white matter chronic small vessel ischemic changes. There is intracranial internal carotid artery atherosclerosis. Skull and face: Calvarium and visualized facial bones appear intact, without suspicious lesions. Sinuses: Visualized sinuses and mastoids are clear. IMPRESSION: 1. No acute intracranial process. 2. Moderate atrophy and chronic microvascular ischemic changes. Dictated by: Radha Anaya M.D. on 06/05/2021 at 17:26 MDM Narrative Medical decision making narrative: 86-year-old gentleman with recent hospitalization diagnosed with urinary tract infection and concern for TIA. CT of the head CTA of the head neck and MRI done 2 weeks ago did not show new infarct. CT scan today does not confirm infarct or bleeding. No evidence of sepsis or infection at this time. He does have a slight worsening of his acute renal failure. Will encourage increased oral intake and follow-up with his primary care physician. At this point I do not have an acute explanation for his continued global weakness but suspect that this is simply progression of his end-stage diseases. He likely will benefit from home health and may well benefit from home physical therapy. They [place] on [address] so will need to contact their provider on work this to see if that might be a possibility. In the meantime he absolutely will benefit from a walker and likely a wheelchair as well. He continues to be significantly high risk for falls. Given the fact that he is falling multiple times daily without significant findings with recent stroke/TIA workup I am going to suggest he stop anticoagulants is a risk stratification recommendation. At this point his risk of dying from bleeding related to falls out raise his risk of dying from a stroke. Discharge Plan Departure Patient Disposition: Home Clinical Impression: Gait instability, Excessive falling, Acute kidney injury Instructions: How to Prevent Falls Activity Restrictions/Additional Instructions: Thank you for coming in today I did not find any evidence of new stroke or bleeding in your brain. There is no evidence for new infection or other specific medical explanations for your increased falls. The amount of falling that you are having is significantly concerning. I would encourage you to buy a walker to use in your home to try and decrease falls. At this point, with the amount of falling that you are having your risk of dying from bleeding related to that falling is higher than your risk of dying from a stroke. Because of that I am going to suggest that you stop your aspirin and Plavix. Please follow-up with your primary care provider. Discuss the possibility of home health care and or home physical therapy I will give you copies of today's note with labs included as well as all recent head imaging studies to share with your providers in light of the lumbar puncture that is anticipated for diagnostic purposes next week. One of the abnormalities noted on your lab work today was worsening kidney function. This may repeat be related to your recent urinary tract infection and antibiotics. Please make sure you are drinking plenty of fluids over the next number of days and your primary provider may choose to recheck your blood work and kidney function in the next few weeks. I wish you the best Prescriptions: No Action cranberry 1 cap PO DAILY RF: 0 tamsulosin 0.4 mg capsule 0.4 mg PO DAILY RF: 0 carbidopa-levodopa 25-100 mg tablet 100 tab PO TID RF: 0 atorvastatin 80 mg tablet 80 mg PO BEDTIME 30 Days Qty: 30 RF: 0 clopidogrel [Plavix] 75 mg tablet 75 mg PO DAILY 21 Days Qty: 21 RF: 0 amlodipine 2.5 mg Tablet 2.5 mg PO DAILY RF: 0 aspirin 81 mg Tablet,Delayed Release (Dr/Ec) 81 mg PO DAILY RF: 0 multivitamin Tablet 1 tab PO DAILY RF: 0 bupropion HCl 150 mg Tablet Sustained-Release 12 Hr 150 mg PO BID RF: 0 triamcinolone acetonide 0.1 % Cream 1 applic TOPICAL DAILY RF: 0 levothyroxine 75 mcg Tablet 75 mcg PO DAILY RF: 0 fluorouracil 0.5 % Cream 1 applic TOPICAL DAILY RF: 0 lidocaine 5 % adhesive patch,medicated 1 patch TOP DAILY PRN (Reason: pain) Qty: 15 RF: 0 acetaminophen 250 mg PO PRN PRN (Reason: Pain (Scale Score 1-3)) RF: 0 Referrals: Antonino Sandhu MD [Primary Care Provider] -
--- NOTE | 2021-06-05 17:01 | DI.CT.S_ITS ---
PROCEDURE: CT HEAD/BRAIN WO CON INDICATIONS: increased weakness, multiple falls, cerebellar dysfunction TECHNIQUE: Noncontrast 4.5 mm thick angled axial sections acquired from the foramen magnum to the vertex, with coronal and sagittal reformats. For radiation dose reduction, the following was used: automated exposure control, adjustment of mA and/or kV according to patient size. COMPARISON: [facility], CT, CT HEAD/BRAIN WO CON, 05/20/2021, 22:34. FINDINGS: Image quality: Excellent. CSF spaces: Basal cisterns are patent. No extra-axial fluid collections. The ventricles are symmetric in size and shape. Brain: No intracranial bleeds or masses. There is cerebral volume loss for age, with resultant ventricular and sulcal prominence. There are periventricular and deep white matter chronic small vessel ischemic changes. There is intracranial internal carotid artery atherosclerosis. Skull and face: Calvarium and visualized facial bones appear intact, without suspicious lesions. Sinuses: Visualized sinuses and mastoids are clear. IMPRESSION: 1. No acute intracranial process. 2. Moderate atrophy and chronic microvascular ischemic changes. Dictated by: Radha Anaya M.D. on 06/05/2021 at 17:26 Approved by: Radha Anaya M.D. on 06/05/2021 at 17:27
[2021-06-05 17:15] LABS: Add Manual Diff / Slide Review NO; Basophils Absolute Auto 100 /uL (0-100); Basophils Percent Auto 1.2 % (0-2); Eosinophils Absolute Auto 500 /uL (0-450); Hematocrit 34.1 % (41-53); Hemoglobin 11.1 g/dL (13.5-17.5); Lymphocytes Absolute Auto 900 /uL (1100-4500); Lymphocytes Percent Auto 10.9 % (25-40); Mean Corpuscular HGB Conc 32.5 % (30-36); Mean Corpuscular Hemoglobin 29.7 PG (26-34); Mean Corpuscular Volume 91.5 fL (80-100); Monocytes Absolute Auto 800 /uL (0-900); Monocytes Percent Auto 9.2 % (3-14); Neutrophils Absolute Auto 6300 /uL (1500-7000); Neutrophils Percent Auto 72.7 % (50-75); Platelet Count 276 X10^3/uL (150-400); Red Blood Cell Count 3.73 X10^6/uL (4.5-5.9); Red Cell Distribution Width 14.2 % (11.6-14.8); White Blood Cell Count 8.7 X10^3/uL (4.5-11.0)
[2021-06-05 17:20] LABS: Alanine Aminotransferase 15 IU/L (<50); Albumin 3.8 g/dL (3.5-5.0); Albumin Globulin Ratio 1.1 (1.0-2.8); Alkaline Phosphatase 117 U/L (38-126); Aspartate Aminotransferase 51 IU/L (17-59); Bilirubin Total 0.4 mg/dL (0.2-1.3); Blood Urea Nitrogen 49 mg/dL (9-20); Calcium 9.1 mg/dL (8.4-10.2); Carbon Dioxide 18 mmol/L (22-32); Chloride 110 mmol/L (98-107); Estimated Glomerular Filt Rate 25.2 mL/min (>60); Globulin 3.6 g/dL (1.7-4.1); Glucose 101 mg/dL (80-110); HEMOLYSIS < 15 (0-50); Potassium 4.3 mmol/L (3.4-5.1); Sodium 140 mmol/L (137-145); Total Protein 7.4 g/dL (6.3-8.2)
== END 2021-06-05 18:32 | disposition home or self-care (01) ==
PROVIDERS: Emergency Provider Emergency Medicine; PCP Family Medicine
DX: R26.81 Unsteadiness on feet (principal); R29.6 Repeated falls; N17.9 Acute kidney failure, unspecified; R53.1 Weakness
CPT/HCPCS: 36415; 70450; 80053; 81003; 85025; 99284

== ENCOUNTER → 2021-06-19 09:21 | Outpatient (CLI) | payer MEDICARE, OTHER, SELFPAY ==
[2021-05-21 01:17] VITALS: BMI 22.1
[2021-06-19 21:14] LABS: COVID19 - ORCAS (NP or Nasal) Negative (Negative)
== END ==
PROVIDERS: PCP Family Medicine; Visit Provider Physician Assistant Medical
DX: Z20.822 Contact with and (suspected) exposure to COVID-19 (principal)
CPT/HCPCS: C9803; U0003